=== PATIENT | male | born 1935 | race Caucasian/White ===

== ENCOUNTER → 2016-10-11 | Outpatient (CLI) | payer BC ==
[~2016-10-11] MED LIST: ACET-1487 PO; ALLO100T PO; ALPR-411 PO; CILO50TA PO; CLIN150C PO; DIPH-437 PO; DONE10TA12 PO; FLUT0.0529 NAE; FRS/80 PO; GLIP-197 PO; ISOS60TA PO; LBT/100 PO; LEVO150T PO; LISI-725 PO; LPD600 PO; MULT-188 PO; NITR0.4S UT; OMEP20CA9 PO; POTA10CA28 PO; QUIN1CAP5 PO
[2016-10-11 13:51] LABS: INR 1.8 (0.9-1.1); PROTHROMBIN TIME (PATIENT) 20.2 SECONDS (9.0-12.0)
[2016-10-11 13:58] LABS: ESTIMATED AVERAGE GLUCOSE 120 mg/dl; HA1C FLAG Normal (Normal)
[2016-10-11 14:06] LABS: ALT/SGPT 19 U/L (12-78); AST/SGOT 18 U/L (15-37); BLOOD UREA NITROGEN 24 mg/dl (7-18); CALCIUM 8.9 mg/dl (8.5-10.1); CARBON DIOXIDE 25 mmol/L (21-32); CHLORIDE 109 mmol/L (98-107); CHOLESTEROL 105 mg/dl (0-200); GLUCOSE 89 mg/dl (70-99); POTASSIUM 3.8 mmol/L (3.5-5.1); SODIUM 145 mmol/L (136-145); TRIGLYCERIDES 63 mg/dl (0-150); VERY LOW DENSITY LIPOPROT CALC 13 mg/dl
[2016-10-11 14:14] LABS: ALB/GLOB RATIO 1.2 (0.9-2); ALKALINE PHOSPHATASE 94 U/L (45-117); CHOLESTEROL/HDL RATIO 2.8; HDL CHOLESTEROL 38 mg/dl
[2016-10-11 14:46] LABS: RATIO 351.8 mcg/mg (0-30.0)
== END | disposition home or self-care (01) ==
LOC: C.LABSPEC 12:44
PROVIDERS: ATTEND Internal Medicine
DX: Z51.81 Encounter for therapeutic drug level monitoring (principal); Z79.01 Long term (current) use of anticoagulants; E11.65 Type 2 diabetes mellitus with hyperglycemia; I48.91 Unspecified atrial fibrillation; I25.10 Atherosclerotic heart disease of native coronary artery without angina pectoris; I10 Essential (primary) hypertension; E03.9 Hypothyroidism, unspecified

== ENCOUNTER → 2016-11-11 | Outpatient (CLI) | payer BC ==
[2016-11-11 15:16] LABS: INR 3.4 (0.9-1.1); PROTHROMBIN TIME (PATIENT) 37.8 SECONDS (9.0-12.0)
== END | disposition home or self-care (01) ==
LOC: C.LABSPEC 13:00
PROVIDERS: ATTEND Internal Medicine
DX: I48.91 Unspecified atrial fibrillation (principal); Z79.01 Long term (current) use of anticoagulants

== ENCOUNTER → 2016-11-22 | Outpatient (CLI) | payer BC ==
[2016-11-22 15:32] LABS: INR 1.7 (0.9-1.1); PROTHROMBIN TIME (PATIENT) 18.1 SECONDS (9.0-12.0)
== END | disposition home or self-care (01) ==
LOC: C.LABSPEC 14:52
PROVIDERS: ATTEND Internal Medicine
DX: I48.91 Unspecified atrial fibrillation (principal); Z79.01 Long term (current) use of anticoagulants

== ENCOUNTER → 2016-12-05 | Outpatient (CLI) | payer BC ==
[2016-12-05 18:32] LABS: INR 1.8 (0.9-1.1); PROTHROMBIN TIME (PATIENT) 20.2 SECONDS (9.0-12.0)
== END | disposition home or self-care (01) ==
LOC: C.LABSPEC 17:58
PROVIDERS: ATTEND Internal Medicine
DX: I48.91 Unspecified atrial fibrillation (principal); Z79.01 Long term (current) use of anticoagulants

== ENCOUNTER → 2016-12-13 | Outpatient (CLI) | payer BC ==
[2016-12-13 16:13] LABS: INR 2.2 (0.9-1.1); PROTHROMBIN TIME (PATIENT) 24.9 SECONDS (9.0-12.0)
== END | disposition home or self-care (01) ==
LOC: C.LABSPEC 15:09
PROVIDERS: ATTEND Internal Medicine
DX: I48.91 Unspecified atrial fibrillation (principal); Z79.01 Long term (current) use of anticoagulants

== ENCOUNTER → 2017-02-11 | Outpatient (CLI) | payer BC ==
[2017-02-11 13:58] LABS: INR 1.8 (0.9-1.1); PROTHROMBIN TIME (PATIENT) 19.3 SECONDS (9.0-12.0)
[2017-02-11 14:16] LABS: ESTIMATED AVERAGE GLUCOSE 126 mg/dl; HA1C FLAG Normal (Normal)
[2017-02-11 14:26] LABS: CALCIUM 8.4 mg/dl (8.5-10.1)
[2017-02-11 14:27] LABS: BLOOD UREA NITROGEN 18 mg/dl (7-18); BUN/CREATININE RATIO 13.6 (10-20); CARBON DIOXIDE 25 mmol/L (21-32); CHLORIDE 111 mmol/L (98-107); CHOLESTEROL 97 mg/dl (0-200); GLUCOSE 89 mg/dl (70-99); POTASSIUM 3.5 mmol/L (3.5-5.1); SODIUM 145 mmol/L (136-145); TRIGLYCERIDES 57 mg/dl (0-150); VERY LOW DENSITY LIPOPROT CALC 11 mg/dl
[2017-02-11 14:32] LABS: RATIO 72.5 mcg/mg (0-30.0)
[2017-02-11 14:38] LABS: CHOLESTEROL/HDL RATIO 2.8; HDL CHOLESTEROL 35 mg/dl
== END | disposition home or self-care (01) ==
LOC: C.LABSPEC 12:33
PROVIDERS: ATTEND Internal Medicine
DX: I25.10 Atherosclerotic heart disease of native coronary artery without angina pectoris (principal); E78.5 Hyperlipidemia, unspecified; I10 Essential (primary) hypertension; E11.9 Type 2 diabetes mellitus without complications; I48.91 Unspecified atrial fibrillation; Z79.01 Long term (current) use of anticoagulants; E03.9 Hypothyroidism, unspecified

== ENCOUNTER → 2017-03-13 | Outpatient (CLI) | payer BC ==
[2017-03-13 15:16] LABS: INR 2.4 (0.9-1.1); PROTHROMBIN TIME (PATIENT) 26.3 SECONDS (9.0-12.0)
== END | disposition home or self-care (01) ==
LOC: C.LABSPEC 14:47
PROVIDERS: ATTEND Internal Medicine
DX: I48.91 Unspecified atrial fibrillation (principal); Z79.01 Long term (current) use of anticoagulants

== ENCOUNTER → 2017-04-11 | Outpatient (CLI) | payer BC ==
[2017-04-11 15:32] LABS: PROTHROMBIN TIME (PATIENT) 21.6 SECONDS (9.0-12.0)
== END | disposition home or self-care (01) ==
LOC: C.LABSPEC 14:41
PROVIDERS: ATTEND Internal Medicine
DX: I48.91 Unspecified atrial fibrillation (principal); Z79.01 Long term (current) use of anticoagulants

== ENCOUNTER → 2017-05-12 | Outpatient (CLI) | payer BC ==
[2017-05-12 15:28] LABS: INR 2.2 (0.9-1.1); PROTHROMBIN TIME (PATIENT) 24.1 SECONDS (9.0-12.0)
== END | disposition home or self-care (01) ==
LOC: C.LABSPEC 14:58
PROVIDERS: ATTEND Internal Medicine
DX: Z51.81 Encounter for therapeutic drug level monitoring (principal); Z79.01 Long term (current) use of anticoagulants; I48.91 Unspecified atrial fibrillation

== ENCOUNTER → 2017-06-13 | Outpatient (CLI) | payer BC ==
[2017-06-13 13:29] LABS: INR 2.1 (0.9-1.1); PROTHROMBIN TIME (PATIENT) 23.7 SECONDS (9.0-12.0)
[2017-06-13 13:48] LABS: ESTIMATED AVERAGE GLUCOSE 120 mg/dl; HA1C FLAG Normal (Normal)
[2017-06-13 14:11] LABS: ALT/SGPT 16 U/L (12-78); BLOOD UREA NITROGEN 21 mg/dl (7-18); BUN/CREATININE RATIO 16.1 (10-20); CALCIUM 8.7 mg/dl (8.5-10.1); CARBON DIOXIDE 23 mmol/L (21-32); CHLORIDE 109 mmol/L (98-107); CHOLESTEROL 91 mg/dl (0-200); GLUCOSE 86 mg/dl (70-99); POTASSIUM 3.7 mmol/L (3.5-5.1); SODIUM 142 mmol/L (136-145)
[2017-06-13 14:20] LABS: ALB/GLOB RATIO 1.1 (0.9-2); ALKALINE PHOSPHATASE 95 U/L (45-117); AST/SGOT 18 U/L (15-37); CHOLESTEROL/HDL RATIO 2.6; HDL CHOLESTEROL 35 mg/dl; THYROID STIMULATING HORMONE 0.722 uIu/ml (0.300-4.500); TRIGLYCERIDES 62 mg/dl (0-150); VERY LOW DENSITY LIPOPROT CALC 12 mg/dl
[2017-06-13 14:28] LABS: RATIO 155.4 mcg/mg (0-30.0)
== END | disposition home or self-care (01) ==
LOC: C.LABSPEC 12:39
PROVIDERS: ATTEND Internal Medicine
DX: Z51.81 Encounter for therapeutic drug level monitoring (principal); Z79.01 Long term (current) use of anticoagulants; E03.9 Hypothyroidism, unspecified; E78.5 Hyperlipidemia, unspecified; E11.9 Type 2 diabetes mellitus without complications; I48.91 Unspecified atrial fibrillation; I25.10 Atherosclerotic heart disease of native coronary artery without angina pectoris

== ENCOUNTER → 2017-07-30 | Outpatient (CLI) | payer BC ==
[2017-07-30 13:25] LABS: PROTHROMBIN TIME (PATIENT) 43.8 SECONDS (9.0-12.0)
[2017-07-30 13:29] LABS: INR 3.9 (0.9-1.1)
== END | disposition home or self-care (01) ==
LOC: C.LABSPEC 12:46
PROVIDERS: ATTEND Internal Medicine
DX: I48.91 Unspecified atrial fibrillation (principal); Z79.01 Long term (current) use of anticoagulants; M10.9 Gout, unspecified

== ENCOUNTER → 2017-08-11 | Outpatient (CLI) | payer BC ==
[2017-08-11 13:17] LABS: INR 1.9 (0.9-1.1); PROTHROMBIN TIME (PATIENT) 20.7 SECONDS (9.0-12.0)
== END | disposition home or self-care (01) ==
LOC: C.LABSPEC 12:27
PROVIDERS: ATTEND Internal Medicine
DX: Z79.01 Long term (current) use of anticoagulants (principal); I48.91 Unspecified atrial fibrillation

== ENCOUNTER → 2017-08-22 | Outpatient (CLI) | payer BC ==
[2017-08-22 12:40] LABS: INR 1.4 (0.9-1.1); PROTHROMBIN TIME (PATIENT) 14.7 SECONDS (9.0-12.0)
== END | disposition home or self-care (01) ==
LOC: C.LABSPEC 12:13
PROVIDERS: ATTEND Internal Medicine
DX: I48.91 Unspecified atrial fibrillation (principal); Z79.01 Long term (current) use of anticoagulants

== ENCOUNTER → 2017-09-05 | Outpatient (CLI) | payer BC ==
[2017-09-05 12:48] LABS: INR 1.4 (0.9-1.1)
== END | disposition home or self-care (01) ==
LOC: C.LABSPEC 12:22
PROVIDERS: ATTEND Internal Medicine
DX: Z51.81 Encounter for therapeutic drug level monitoring (principal); Z79.01 Long term (current) use of anticoagulants; I48.91 Unspecified atrial fibrillation

== ENCOUNTER → 2017-09-19 | Outpatient (CLI) | payer BC ==
[2017-09-19 13:40] LABS: INR 4.5 (0.9-1.1)
== END | disposition home or self-care (01) ==
LOC: C.LABSPEC 12:43
PROVIDERS: ATTEND Internal Medicine
DX: Z51.81 Encounter for therapeutic drug level monitoring (principal); Z79.01 Long term (current) use of anticoagulants; I48.91 Unspecified atrial fibrillation

== ENCOUNTER → 2017-10-03 | Outpatient (CLI) | payer BC ==
[2017-10-03 13:31] LABS: INR 2.9 (0.9-1.1)
== END | disposition home or self-care (01) ==
LOC: C.LABSPEC 12:32
PROVIDERS: ATTEND Internal Medicine
DX: I48.91 Unspecified atrial fibrillation (principal); Z79.01 Long term (current) use of anticoagulants

== ENCOUNTER → 2017-10-17 | Outpatient (CLI) | payer BC ==
[2017-10-17 14:15] LABS: ALBUMIN 3.9 gm/dl (3.4-5.0); ALT/SGPT 20 U/L (12-78); BLOOD UREA NITROGEN 28 mg/dl (7-18); CALCIUM 8.7 mg/dl (8.5-10.1); CARBON DIOXIDE 25 mmol/L (21-32); CHOLESTEROL 105 mg/dl (0-200); CREATININE 1.27 mg/dl (0.60-1.40); GLUCOSE 76 mg/dl (70-99); POTASSIUM 3.5 mmol/L (3.5-5.1); SODIUM 141 mmol/L (136-145)
[2017-10-17 14:24] LABS: ALKALINE PHOSPHATASE 111 U/L (45-117); AST/SGOT 21 U/L (15-37); LDL CHOLESTEROL (DIRECT) 64 mg/dl; TOTAL PROTEIN 7.8 gm/dl (6.4-8.2)
[2017-10-17 14:36] LABS: CREATININE RANDOM URINE 92.5 mg/dl
[2017-10-17 14:44] LABS: HEMOGLOBIN A1C 5.8 % (4.5-5.6)
== END | disposition home or self-care (01) ==
LOC: C.LABSPEC 13:26
PROVIDERS: ATTEND Internal Medicine
DX: E78.5 Hyperlipidemia, unspecified (principal); E11.9 Type 2 diabetes mellitus without complications; I25.10 Atherosclerotic heart disease of native coronary artery without angina pectoris; E03.9 Hypothyroidism, unspecified

== ENCOUNTER → 2017-11-10 | Outpatient (CLI) | payer BC ==
[2017-11-10 15:05] LABS: INR 3.3 (0.9-1.1)
== END | disposition home or self-care (01) ==
LOC: C.LABSPEC 14:22
PROVIDERS: ATTEND Internal Medicine
DX: Z51.81 Encounter for therapeutic drug level monitoring (principal); Z79.01 Long term (current) use of anticoagulants; I48.91 Unspecified atrial fibrillation

== ENCOUNTER → 2017-11-25 | Outpatient (CLI) | payer BC ==
[2017-11-25 16:01] LABS: INR 2.6 (0.9-1.1)
== END | disposition home or self-care (01) ==
LOC: C.LABSPEC 15:08
PROVIDERS: ATTEND Internal Medicine
DX: I48.91 Unspecified atrial fibrillation (principal); Z79.01 Long term (current) use of anticoagulants

== ENCOUNTER → 2017-12-29 | Outpatient (CLI) | payer BC ==
[2017-12-29 13:14] LABS: INR 2.3 (0.9-1.1)
== END | disposition home or self-care (01) ==
LOC: C.LABSPEC 12:37
PROVIDERS: ATTEND Internal Medicine
DX: I48.91 Unspecified atrial fibrillation (principal); Z79.01 Long term (current) use of anticoagulants

== ENCOUNTER → 2018-01-27 | Outpatient (CLI) | payer BC ==
[2018-01-27 18:09] LABS: INR 3.2 (0.9-1.1)
== END | disposition home or self-care (01) ==
LOC: C.LABSPEC 16:58
PROVIDERS: ATTEND Internal Medicine
DX: Z51.81 Encounter for therapeutic drug level monitoring (principal); I48.91 Unspecified atrial fibrillation; Z79.01 Long term (current) use of anticoagulants

== ENCOUNTER → 2018-04-20 | Outpatient (CLI) | payer BC ==
[2018-04-20 14:57] LABS: INR 2.8 (0.9-1.1)
== END | disposition home or self-care (01) ==
LOC: C.LABSPEC 13:48
PROVIDERS: ATTEND Internal Medicine
DX: Z51.81 Encounter for therapeutic drug level monitoring (principal); I48.91 Unspecified atrial fibrillation; Z79.01 Long term (current) use of anticoagulants

== ENCOUNTER 2023-08-19 14:55 | Inpatient (IN) ==
--- NOTE | 2023-08-19 15:04 | Emergency Department Note ---
Impression & Plan Heart palpitations, SOB (shortness of breath), Hypomagnesemia ED Provider Note NAME: ROBEL HUERTA AGE: 87 SEX: M : 1935 ARRIVES VIA: Ambulance INFORMANT: Patient, EMS ED PROVIDER(S): Rojas Suh DO CHIEF COMPLAINT: Shortness of breath HPI: The patient is an 87-year-old male who is 1 week status post pacemaker battery replacement who presented to the emergency department for shortness of breath and difficulty breathing. The patient noticed he is having trouble getting a deep breath. He denies having any cough or fever. He has a history of atrial fibrillation and does take blood thinners. The patient states his symptoms are improved at this time. He had an episode en route to the hospital. According to the prehospital personnel the patient had an episode of bradycardia in the 30s. The patient denies having any lower extremity swelling at this time. He denies having any current chest pain. ROS: See above HPI for pertinent positives & negatives. A total of 10 systems reviewed and were otherwise negative. PAST MEDICAL HISTORY: See Below PAST SURGICAL HISTORY: See Below FAMILY HISTORY: See Below SOCIAL HISTORY: See Below HOME MEDICATIONS: See Below ALLERGIES: See Below VITALS: See Below PHYSICAL EXAMINATION: GENERAL: Patient is awake alert in no acute distress patient is resting comfortably and showing no signs of anxiety EYES: The conjunctivae are clear. The pupils are round and reactive. EARS, NOSE, MOUTH AND THROAT: The nose is without any evidence of any deformity. NECK: The neck is nontender and supple. RESPIRATORY: Normal respiratory effort is noted there is no evidence of wheezing rhonchi or rales CARDIOVASCULAR: Regular rate and rhythm noted there no murmurs rubs or gallops normal S1 normal S2. GASTROINTESTINAL: The abdomen is soft. Abdomen is nontender. MUSCULOSKELETAL/EXTREMITIES: There is no evidence of gross deformity full range of motion is noted in the hips and shoulders. SKIN: There is no obvious evidence of any rash. Trace pedal edema was noted bilaterally. Skin is warm and dry NEUROLOGIC: Patient is awake alert and oriented x3 MEDICAL DECISION MAKING: The patient is an 87-year-old male who presented to the emergency department for an evaluation of difficulty breathing. The patient states that he did not feel well this morning. He recently had his pacemaker battery change. According to the prehospital personnel the patient was bradycardic in the 30s prior to arrival. This did resolve and the patient was feeling much better. The patient was reevaluated multiple times. He was found to have a very low magnesium. Magnesium was replaced in the emergency department. I discussed the patient's laboratory and radiographic studies with him. Given his findings I do feel the patient would be a better candidate for inpatient management. For this reason I discussed his condition with the on-call [facility] hospitalist. They have agreed to evaluate the patient in the emergency department for further management and disposition. Triage Nursing notes reviewed. Prior medical records reviewed Vital Signs: reviewed and remarkable for elevated blood pressure. Differential diagnosis: Reactive airway disease, pneumonia, pneumothorax, COPD, CHF, infections, cardiac ischemia, pulmonary embolism, musculoskeletal, gastrointestinal, as well as other pathologies. ER treatment provided: See below Diagnostics interpreted by me: ECG: EKG was obtained in the emergency department. My interpretation is ventricular paced rhythm at 70 bpm. PVCs were noted. Otherwise there were no k[place] de[place] wint[place] beats. This was compared to a EKG from March 11, 2023. No changes were noted Cardiac Monitoring: An order was placed for continuous cardiac monitoring. The monitor shows a rate of 64 bpm with ventricular paced rhythm. Laboratory studies: As stated above and show below. Imaging studies: See below. Radiographic imaging was reviewed by myself Consultation(s): Dr. Sheehan was notified about the patient. Past Med/Surg History Medical History HTN (hypertension) Gout Cognitive decline Diabetes mellitus Hypothyroidism HLD (hyperlipidemia) senior care current use of anticoagulant therapy Atrial fibrillation, permanent Pre-syncope (01/31/14) Chest pain CHF (congestive heart failure) Bradyarrhythmia (01/31/14) Angina pectoris (01/24/14) Surgical History Hx of CABG Family History Mother Breast cancer Myocardial infarction Denies family history of Ovarian cancer Prostate cancer Colorectal cancer Social History Smoking Status: Former smoker Tobacco Type: Cigarettes Second Hand Exposure: No; Do You Dip or Chew Tobacco: No; Hx Alcohol Use: No Hx Substance Use: No Preferred Language: Libyan Visual Impairment: No Limitations Hearing Ability: Use of Hearing Aid 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: No Beliefs That Will Affect Care: None marital status: Current Living Situation: Spouse current occupational status: retired Feels Safe at Home: Yes Childhood Exposure to Second-Hand Smoke: No Dental Care, Regularly: Yes Seatbelt Use: always Sunscreen Use: No Assistive Devices: None Allergies Allergies Allergy/AdvReac Type Severity Reaction Status Date / Time codeine Allergy Unknown CAN'T Verified 08/19/23 16:12 REMEMBER morphine Allergy Unknown CAN'T Verified 08/19/23 16:12 REMEMBER Penicillins Allergy Unknown CAN'T Verified 08/19/23 16:12 REMEMBER Home Meds Home Medications Medication Instructions Recorded Confirmed clindamycin HCl 150 mg capsule 600 mg PO DIRECTED PRN PRIOR TO 05/27/19 08/19/23 DENTAL APPOINTMENTS nitroglycerin 0.4 mg sublingual 0.4 mg sublingual Q5M PRN chest 05/27/19 08/19/23 tablet pain [place]'s Cramp Pill 1 dose PO HS PRN leg cramps 07/01/21 08/19/23 vit C 50 mg-E 15 unit-zinc cit 4.5 1 tab PO DAILY 07/01/21 08/19/23 mg-lutein 2.5 mg-zeaxan chew tablet (iSpecimen) vitamins-lipotropics tablet 1 tab PO DAILY PRN PER PT LIST 10/02/22 08/19/23 NEEDED loperamide 2 mg capsule 2 mg PO DAILY 01/15/23 08/19/23 acetaminophen 650 mg 650 mg PO HS PRN Pain 02/06/23 08/19/23 tablet,extended release levothyroxine 150 mcg tablet 150 mcg PO DAILYBB 08/19/23 08/19/23 Previous Rx's Medication Instructions Recorded labetalol 100 mg tablet 100 mg PO BID #180 tabs 09/10/22 tamsulosin 0.4 mg capsule 0.4 mg PO DAILY #90 caps 09/27/22 Wheeled Walker #1 ea 10/10/22 atorvastatin 20 mg tablet 20 mg PO DAILY #90 tabs 10/30/22 gemfibrozil 600 mg tablet 600 mg PO BID #180 tabs 11/11/22 omeprazole 20 mg capsule,delayed 20 mg PO DAILY #90 caps 11/11/22 release calcium carbonate 500 mg calcium 500 mg PO BID #60 tabs 02/05/23 (1,250 mg) tablet cholecalciferol (vitamin D3) 50 50 mcg PO DAILY #90 caps 02/28/23 mcg (2,000 unit) capsule apixaban 2.5 mg tablet (Eliquis) 2.5 mg PO BID #180 tabs 03/11/23 potassium chloride 10 mEq 20 meq (2 x 10 mEq) PO BID #360 03/21/23 tablet,extended release tabs furosemide 80 mg tablet 80 mg PO DAILY 90 days #90 tabs 07/02/23 isosorbide mononitrate 60 mg 60 mg PO DAILY #90 tabs 07/02/23 tablet,extended release 24 hr allopurinol 100 mg tablet 200 mg (2 x 100 mg) PO DAILY #180 07/03/23 tabs cilostazol 50 mg tablet 50 mg PO BID #180 tabs 07/03/23 lisinopril 20 mg tablet 20 mg PO DAILY #90 tabs 08/01/23 baclofen 10 mg tablet 10 mg PO HS #90 tabs 08/11/23 Results & Data (ED) Vital Signs Vital Signs - 24 hr 08/19/23 14:59 08/19/23 15:00 08/19/23 15:00 Temperature 36.5 C Temperature Source Oral Pulse Rate 72 72 Pulse Rate [Right Finger] Pulse Rate from SpO2 Sensor Pulse Rhythm Irregular Regular Pulse Rhythm [Right Finger] Pulse Strength Normal Pulse Strength [Right Finger] Respiratory Rate 18 20 Respiratory Effort / Characteristics Non-Labored Spontaneous Respiratory Depth Normal Respiratory Pattern Regular Blood Pressure Blood Pressure [Right Arm] Blood Pressure Mean Blood Pressure Mean [Right Arm] Blood Pressure Position [Right Arm] Pulse Oximetry 97 97 97 Oxygen Delivery Method Room Air Room Air Room Air Oxygen Flow Rate 0 Sepsis Recent Fever Within 48 Hours No Sepsis New/Unexplained Change in Mental Status N/A Sepsis Action Taken by Nursing No Action Required 08/19/23 15:04 08/19/23 15:04 08/19/23 15:10 Temperature Temperature Source Pulse Rate 72 72 72 Pulse Rate [Right Finger] Pulse Rate from SpO2 Sensor 71 69 Pulse Rhythm Pulse Rhythm [Right Finger] Pulse Strength Pulse Strength [Right Finger] Respiratory Rate 25 H 21 Respiratory Effort / Characteristics Respiratory Depth Respiratory Pattern Blood Pressure Blood Pressure [Right Arm] Blood Pressure Mean Blood Pressure Mean [Right Arm] Blood Pressure Position [Right Arm] Pulse Oximetry 95 97 Oxygen Delivery Method Oxygen Flow Rate Sepsis Recent Fever Within 48 Hours Sepsis New/Unexplained Change in Mental Status Sepsis Action Taken by Nursing 08/19/23 15:20 08/19/23 15:30 08/19/23 15:30 Temperature Temperature Source Pulse Rate 64 Pulse Rate [Right Finger] Pulse Rate from SpO2 Sensor 62 Pulse Rhythm Pulse Rhythm [Right Finger] Pulse Strength Pulse Strength [Right Finger] Respiratory Rate 25 H Respiratory Effort / Characteristics Non-Labored Spontaneous Respiratory Depth Respiratory Pattern Regular Blood Pressure Blood Pressure [Right Arm] Blood Pressure Mean Blood Pressure Mean [Right Arm] Blood Pressure Position [Right Arm] Pulse Oximetry 97 96 Oxygen Delivery Method Room Air Oxygen Flow Rate Sepsis Recent Fever Within 48 Hours Sepsis New/Unexplained Change in Mental Status Sepsis Action Taken by Nursing 08/19/23 15:30 08/19/23 15:40 08/19/23 15:50 Temperature Temperature Source Pulse Rate 64 66 61 Pulse Rate [Right Finger] Pulse Rate from SpO2 Sensor 54 L 66 62 Pulse Rhythm Pulse Rhythm [Right Finger] Pulse Strength Pulse Strength [Right Finger] Respiratory Rate 14 24 17 Respiratory Effort / Characteristics Respiratory Depth Respiratory Pattern Blood Pressure 137/75 Blood Pressure [Right Arm] Blood Pressure Mean 95 Blood Pressure Mean [Right Arm] Blood Pressure Position [Right Arm] Pulse Oximetry 96 96 96 Oxygen Delivery Method Room Air Room Air Room Air Oxygen Flow Rate Sepsis Recent Fever Within 48 Hours Sepsis New/Unexplained Change in Mental Status Sepsis Action Taken by Nursing 08/19/23 16:00 Temperature Temperature Source Pulse Rate Pulse Rate [Right Finger] 64 Pulse Rate from SpO2 Sensor Pulse Rhythm Pulse Rhythm [Right Finger] Regular Pulse Strength Pulse Strength [Right Finger] Normal Respiratory Rate 19 Respiratory Effort / Characteristics Non-Labored Spontaneous Respiratory Depth Normal Respiratory Pattern Regular Blood Pressure Blood Pressure [Right Arm] 159/79 H Blood Pressure Mean Blood Pressure Mean [Right Arm] 105 Blood Pressure Position [Right Arm] Lying Pulse Oximetry 97 Oxygen Delivery Method Room Air Oxygen Flow Rate Sepsis Recent Fever Within 48 Hours Sepsis New/Unexplained Change in Mental Status Sepsis Action Taken by Care Home Medications Current Medication List: was personally reviewed by me Laboratory Data Attestation: I reviewed the patient's lab results. 08/19/23 15:23 08/19/23 15:23 Lab Results 08/19/23 Range/Units 15:23 WBC 6.83 (4.8-10.8) K/ul RBC 3.23 L (4.70-6.10) M/uL Hgb 9.9 L (14.0-18.0) g/dl Hct 29.8 L (42.0-52.0) % MCV 92.3 (80.0-100.0) fL MCH 30.7 (25.0-34.0) pg MCHC 33.2 (32.0-36.0) g/dL RDW Std Deviation 50.4 H (36.4-46.3) fL RDW Coeff of Gerri 15.1 H (11.5-14.5) % Plt Count 185 (130-400) K/uL MPV 11.8 (9.4-12.4) fL Immature Gran % (Auto) 0.3 % Neut % (Auto) 73.2 % Lymph % (Auto) 14.6 % [place] % (Auto) 8.3 % Eos % (Auto) 2.6 % Baso % (Auto) 1.0 % Neut # (Auto) 4.99 (1.40-6.50) K/uL Lymph # (Auto) 1.00 L (1.20-3.40) K/uL [place] # (Auto) 0.57 (0.11-0.59) K/uL Eos # (Auto) 0.18 (0.00-0.50) K/uL Baso # (Auto) 0.07 (0.00-0.20) K/uL Immature Gran # (Auto) 0.02 (0.01-0.20) K/uL PT 14.8 H (9.0-12.0) Seconds INR 1.4 H (0.9-1.1) APTT 34 H (21-31) Seconds PTT Ratio 1.2 Sodium 134 L (136-145) mmol/L Potassium 4.0 (3.5-5.1) mmol/L Chloride 97 L (98-107) mmol/L Carbon Dioxide 28 (21-32) mmol/L Anion Gap 9 (3-11) BUN 22 (6-23) mg/dl Creatinine 1.23 (0.6-1.4) mg/dl Est Cr Clr Drug Dosing 51.1 ml/min Est GFR ( Amer) 61.2 ml/min Est GFR (Non-Af Amer) 52.8 ml/min BUN/Creatinine Ratio 17.9 (10-20) Glucose 145 H (70-99(Fasting)) mg/dl Calcium 7.5 L (8.6-10.3) mg/dl Magnesium 0.7 L* (1.7-2.4) mg/dl Total Bilirubin 0.5 (0.2-1.0) mg/dl AST 18 (13-39) U/L ALT 6 L (7-52) U/L Alkaline Phosphatase 83 (34-104) U/L Troponin I High Sens 19.3 (0-20) pg/ml B-Natriuretic Peptide 874 H (0-100) pg/ml Total Protein 6.9 (6.0-8.3) gm/dl Albumin 4.1 (3.4-5.0) gm/dl Globulin 2.8 (2.5-4.0) gm/dl Albumin/Globulin Ratio 1.5 (0.9-2) Administered Medications Magnesium Sulfate/Dextrose (Magnesium Sulfate / D5w) 1 gm in 100 mls @ 100 mls/hr IV Q1H ADRYAN Stop: 08/19/23 18:33 Last Admin: 08/19/23 17:08 Dose: 100 mls/hr Documented By: RIPENING ROOM HAND Imaging Data Attestation: I personally reviewed and interpreted this imaging study as follows: My Impression: 1 view chest x-ray was obtained in the emergency department. My interpretation is no free air or definite infiltrate, final report below Radiologist's Impression: Chest X-Ray 08/19/23 14:59 XR chest 1V portable CLINICAL HISTORY: Dyspnea TECHNIQUE: Single frontal radiograph of the chest was obtained. Comparison: Comparison is made to chest radiograph 01/17/2023 FINDINGS: Median sternotomy wires are unchanged. Pacemaker is seen. Cardiomegaly is noted. Prominence and cephalization of the vasculature is seen. No evidence of pleural effusion or pneumothorax. IMPRESSION: Cardiomegaly and mild pulmonary edema. ACT 112: Negative or not required by law. Electronically signed by: Dereck Oosrio M.D. 08/19/2023 4:01 PM Discharge Plan Visit Data Chief Complaint: Bradycardia Stated Complaint: SOB ED Provider: Rojas Suh Discharge Problem: Heart palpitations, SOB (shortness of breath), Hypomagnesemia Patient Disposition: Being Evaluated by Hospitalist Forms Stand Alone Forms: My [facility] Prescriptions Prescriptions: No Action labetalol 100 mg tablet 100 mg PO BID Qty: 180 3RF tamsulosin 0.4 mg capsule 0.4 mg PO DAILY Qty: 90 3RF (DME) Lobo Loomis Misc See Rx Instructions .Route Qty: 1 0RF Rx Instructions: As directed atorvastatin 20 mg tablet 20 mg PO DAILY Qty: 90 3RF omeprazole 20 mg capsule,delayed release(DR/EC) 20 mg PO DAILY Qty: 90 3RF gemfibrozil 600 mg tablet 600 mg PO BID Qty: 180 3RF calcium carbonate 500 mg calcium (1,250 mg) tablet 500 mg PO BID Qty: 60 0RF cholecalciferol (vitamin D3) 50 mcg (2,000 unit) capsule 50 mcg PO DAILY Qty: 90 3RF potassium chloride 10 mEq tablet extended release 20 meq PO BID Qty: 360 3RF furosemide 80 mg tablet 80 mg PO DAILY 90 Days Qty: 90 3RF isosorbide mononitrate 60 mg tablet extended release 24 hr 60 mg PO DAILY Qty: 90 1RF allopurinol 100 mg tablet 200 mg PO DAILY Qty: 180 3RF cilostazol 50 mg tablet 50 mg PO BID Qty: 180 3RF lisinopril 20 mg tablet 20 mg PO DAILY Qty: 90 2RF baclofen 10 mg tablet 10 mg PO HS Qty: 90 3RF nitroglycerin 0.4 mg tablet, sublingual 0.4 mg SL Q5M PRN (Reason: chest pain) clindamycin HCl 150 mg capsule 600 mg PO DIRECTED PRN (Reason: PRIOR TO DENTAL APPOINTMENTS) Ocuvite Eye Health 50 mg-15 unit- 4.5 mg-2.5 mg Tablet,Chewable 1 tab PO DAILY [place]'s Cramp Pill 1 dose PO HS PRN (Reason: leg cramps) acetaminophen 650 mg tablet extended release 650 mg PO HS PRN (Reason: Pain) loperamide 2 mg Capsule 2 mg PO DAILY Eliquis 2.5 mg tablet 2.5 mg PO BID Qty: 180 3RF levothyroxine 150 mcg tablet 150 mcg PO DAILYBB vitamins-lipotropics Tablet 1 tab PO DAILY PRN (Reason: PER PT LIST NEEDED) Referrals Referrals: Marcelino French, [Primary Care Provider] -
[2023-08-19 15:29] VITALS: TEMP 97.7
--- NOTE | 2023-08-19 16:03 | XRay Report ---
XR chest 1V portable CLINICAL HISTORY: Dyspnea TECHNIQUE: Single frontal radiograph of the chest was obtained. Comparison: Comparison is made to chest radiograph 01/17/2023 FINDINGS: Median sternotomy wires are unchanged. Pacemaker is seen. Cardiomegaly is noted. Prominence and cepha lization of the vasculature is seen. No evidence of pleural effusion or pneumothorax. IMPRESSION: Cardiomegaly and mild pulmonary edema. ACT 112: Negative or not required by law. Electronically signed by: Dereck Osorio M.D. 08/19/2023 4:01 PM
[2023-08-19 16:05] LABS: BUN Creatinine Ratio 17.9 (10-20); Calcium 7.5 mg/dl (8.6-10.3); Creatinine Clr Calc Pharmacy 51.1 ml/min; Est GFR (African American) 61.2 ml/min; Est GFR (Non-African American) 52.8 ml/min
[2023-08-19 16:07] LABS: Albumin Globulin Ratio 1.5 (0.9-2); Albumin Level 4.1 gm/dl (3.4-5.0); Bilirubin,Total 0.5 mg/dl (0.2-1.0); Globulin 2.8 gm/dl (2.5-4.0); Magnesium 0.7 mg/dl (1.7-2.4); Total Protein 6.9 gm/dl (6.0-8.3)
--- NOTE | 2023-08-19 16:10 | Electrocardiogram Report ---
Test Reason : Blood Pressure : / mmHG Vent. Rate : 070 BPM Atrial Rate : 250 BPM P-R Int : 000 ms QRS Dur : 180 ms QT Int : 480 ms P-R-T Axes : 000 -63 112 degrees QTc Int : 518 ms Ventricular-paced rhythm with occasional sinus complexes and with occasional Premature ventricular co mplexes Abnormal ECG When compared with ECG of 11-MAR-2023 14:26, Premature ventricular complexes are now Present Vent. rate has increased BY 7 BPM Confirmed by Rojas Walls ([id number]) on 08/19/2023 4:10:21 PM Referred By: Confirmed By:Rojas Walls
[2023-08-19 16:11] LABS: Troponin I High Sensitivity 19.3 pg/ml (0-20)
[2023-08-19 16:16] LABS: Basophils # (auto) 0.07 K/uL (0.00-0.20); Eosinophils # (auto) 0.18 K/uL (0.00-0.50); Eosinophils % (auto) 2.6 %; Hematocrit (blood only) 29.8 % (42.0-52.0); Hemoglobin 9.9 g/dl (14.0-18.0); Immature Granulocytes # (auto) 0.02 K/uL (0.01-0.20); Immature Granulocytes % (auto) 0.3 %; Lymphocytes % (auto) 14.6 %; Mean Corpuscular Hemoglobin 30.7 pg (25.0-34.0); Mean Corpuscular Hgb Conc 33.2 g/dL (32.0-36.0); Mean Corpuscular Volume 92.3 fL (80.0-100.0); Mean Platelet Volume 11.8 fL (9.4-12.4); Monocytes # (auto) 0.57 K/uL (0.11-0.59); Monocytes % (auto) 8.3 %; Neutrophils # (auto) 4.99 K/uL (1.40-6.50); Neutrophils % (auto) 73.2 %; Platelet Count 185 K/uL (130-400); RDW Coefficient of Variation 15.1 % (11.5-14.5); RDW Standard Deviation 50.4 fL (36.4-46.3); Red Blood Count 3.23 M/uL (4.70-6.10); White Blood Count 6.83 K/ul (4.8-10.8)
[2023-08-19 16:19] LABS: INR 1.4 (0.9-1.1); Partial Thromboplastin Ratio 1.2; Partial Thromboplastin Time 34 Seconds (21-31); Prothrombin Time 14.8 Seconds (9.0-12.0)
[2023-08-19] MEDS: MAGNESIUM SULFATE / D5W 1 GM/100 ML BAG IV SCH ×4 (17:08→22:21)
[2023-08-19 17:32] LABS: Adenovirus PCR Not Detected (NotDetected); Bordetella parapertussis PCR Not Detected (NotDetected); Bordetella pertussis PCR Not Detected (NotDetected); Chlamydia pneumoniae PCR Not Detected (NotDetected); Coronavirus 229E PCR Not Detected (NotDetected); Coronavirus CoV-2 (COVID19)PCR Not Detected (NotDetected); Coronavirus HKU1 PCR Not Detected (NotDetected); Coronavirus NL63 PCR Not Detected (NotDetected); Coronavirus OC43PCR Not Detected (NotDetected); Human Metapneumovirus PCR Not Detected (NotDetected); Influenza A PCR Not Detected (NotDetected); Influenza B PCR Not Detected (NotDetected); Mycoplasma pneumoniae PCR Not Detected (NotDetected); Parainfluenza Virus 1 PCR Not Detected (NotDetected); Parainfluenza Virus 2 PCR Not Detected (NotDetected); Parainfluenza Virus 3 PCR Not Detected (NotDetected); Parainfluenza Virus 4 PCR Not Detected (NotDetected); Respiratory Syncytial VirusPCR Not Detected (NotDetected); Rhinovirus/Enterovirus PCR Not Detected (NotDetected)
--- NOTE | 2023-08-19 18:00 | History & Physical Report ---
Date of Service August 19, 2023 Assessment & Plan (1) Bradycardia: Plan: Suspect cause of his symptoms today despite pacemaker ?ventricular tachycardia - patient is currently asymptomatic Pending pacemaker reports to assess bradyarrhythmia Holding labetalol until pacemaker check and cardiology review Consult cardiology for ongoing advice (2) Hypomagnesemia: Plan: Suspect cause is his chronic Lasix use. Likely acute on chronic problem since he is not on supplementation and level 1.2 in September. Hyperreflexic but no nystagmus on exam Suspect contributing towards arrhythmia Mg level 0.7 on admission. Mg sulfate 2g IV ordered by ER physician, will give addition 2g over 2 hours, then 2g over 4 hours. Repeat Mg level daily, Phosphorus level in AM (3) Atrial fibrillation, permanent: Plan: Hold Eliquis in case of need of procedure Rate controlled (4) Coronary artery disease: Plan: Continue ISMN Restart Eliquis when ok by cardiology Hold labetalol as above Continue atorvastatin (5) Presence of cardiac pacemaker: Plan: Recent battery replacement. Last check longevity for 15 years. (6) CHF (congestive heart failure): Plan: Continue Lasix 80mg PO daily. No overt acute exacerbation. (7) BPH (benign prostatic hyperplasia): Plan: Continue tamsulosin Plan VTE Prophylaxis - on hold pending possible need for procedure Diet - heart healthy, NPO after midnight Disposition - admit to PCU Admission and Anticipated Discharge Date Admission Date: August 19, 2023 History of Present Illness Chief Complaint: "feeling like I was going to " Primary Care Provider: Marcelino French, DO Flores Spenser is an 87 year old male who presents to the ER after sudden onset abnormal feeling like he was going to . This feeling started at 3am and lasted until 7am. He did not inform his . He finds it difficult to describe but denies chest pain. More like shortness of breath. Feeling of impending doom. It completely went away until 2pm and at that time told his who called EMS. Per EMS he had a heart rate in the 30s when seen. Currently the patient feels back to his normal self. He denies any chest pain, shortness of breath, leg swelling, palpitations, weakness, abdominal pain, diarrhea, nausea, vomiting, sinus pain, nasal congestion. Allergies Allergy/AdvReac Type Severity Reaction Status Date / Time codeine Allergy Unknown CAN'T Verified 08/19/23 16:12 REMEMBER morphine Allergy Unknown CAN'T Verified 08/19/23 16:12 REMEMBER Penicillins Allergy Unknown CAN'T Verified 08/19/23 16:12 REMEMBER Home Medications Medication Instructions Recorded Confirmed Type clindamycin HCl 150 mg capsule 600 mg PO DIRECTED PRN PRIOR TO 05/27/19 08/19/23 History DENTAL APPOINTMENTS nitroglycerin 0.4 mg sublingual 0.4 mg sublingual Q5M PRN chest 05/27/19 08/19/23 History tablet pain Media's Cramp Pill 1 dose PO HS PRN leg cramps 07/01/21 08/19/23 History vit C 50 mg-E 15 unit-zinc cit 4.5 1 tab PO DAILY 07/01/21 08/19/23 History mg-lutein 2.5 mg-zeaxan chew tablet ([facility]) labetalol 100 mg tablet 100 mg PO BID #180 tabs 09/10/22 08/19/23 Rx tamsulosin 0.4 mg capsule 0.4 mg PO DAILY #90 caps 09/27/22 08/19/23 Rx vitamins-lipotropics tablet 1 tab PO DAILY PRN PER PT LIST 10/02/22 08/19/23 History NEEDED Wheeled Walker #1 ea 10/10/22 08/19/23 Rx atorvastatin 20 mg tablet 20 mg PO DAILY #90 tabs 10/30/22 08/19/23 Rx gemfibrozil 600 mg tablet 600 mg PO BID #180 tabs 11/11/22 08/19/23 Rx omeprazole 20 mg capsule,delayed 20 mg PO DAILY #90 caps 11/11/22 08/19/23 Rx release loperamide 2 mg capsule 2 mg PO DAILY 01/15/23 08/19/23 History calcium carbonate 500 mg calcium 500 mg PO BID #60 tabs 02/05/23 08/19/23 Rx (1,250 mg) tablet acetaminophen 650 mg 650 mg PO HS PRN Pain 02/06/23 08/19/23 History tablet,extended release cholecalciferol (vitamin D3) 50 50 mcg PO DAILY #90 caps 02/28/23 08/19/23 Rx mcg (2,000 unit) capsule apixaban 2.5 mg tablet (Eliquis) 2.5 mg PO BID #180 tabs 03/11/23 08/19/23 Rx potassium chloride 10 mEq 20 meq (2 x 10 mEq) PO BID #360 03/21/23 08/19/23 Rx tablet,extended release tabs furosemide 80 mg tablet 80 mg PO DAILY 90 days #90 tabs 07/02/23 08/19/23 Rx isosorbide mononitrate 60 mg 60 mg PO DAILY #90 tabs 07/02/23 08/19/23 Rx tablet,extended release 24 hr allopurinol 100 mg tablet 200 mg (2 x 100 mg) PO DAILY #180 07/03/23 08/19/23 Rx tabs cilostazol 50 mg tablet 50 mg PO BID #180 tabs 07/03/23 08/19/23 Rx lisinopril 20 mg tablet 20 mg PO DAILY #90 tabs 08/01/23 08/19/23 Rx baclofen 10 mg tablet 10 mg PO HS #90 tabs 08/11/23 08/19/23 Rx levothyroxine 150 mcg tablet 150 mcg PO DAILYBB 08/19/23 08/19/23 History Past Med/Surg History Medical History HTN (hypertension) Gout Cognitive decline Diabetes mellitus Hypothyroidism HLD (hyperlipidemia) jail current use of anticoagulant therapy Atrial fibrillation, permanent Pre-syncope (01/31/14) Chest pain CHF (congestive heart failure) Bradyarrhythmia (01/31/14) Angina pectoris (01/24/14) Surgical History Hx of CABG Family History Mother Breast cancer Myocardial infarction Denies family history of Ovarian cancer Prostate cancer Colorectal cancer Social History Smoking Status: Former smoker Tobacco Type: Cigarettes Second Hand Exposure: No; Do You Dip or Chew Tobacco: No; Hx Alcohol Use: Yes Alcohol type: beer Hx Substance Use: No Preferred Language: Arabic Communication Ability: Effective Visual Impairment: No Limitations Hearing Ability: Use of Hearing Aid Monitor Tech Required: No Beliefs That Will Affect Care: None marital status: Current Living Situation: Spouse current occupational status: retired Feels Safe at Home: Yes Safety Concerns: Feels Safe At This Time Childhood Exposure to Second-Hand Smoke: No Dental Care, Regularly: Yes Seatbelt Use: always Sunscreen Use: No Assistive Devices: None Review of Systems Review of Systems: All systems reviewed & are unremarkable except as noted in HPI & below Physical Exam Constitutional: WD/WN, vitals as above Eyes: PERRL, conjunctivae normal, anicteric sclerae Respiratory: normal respiratory effort, lungs clear to auscultation Cardiovascular: Rate/Rhythm: regular rate and regular rhythm Heart Sounds: no murmur Extremities: normal capillary refill and + pedal edema (1+ b/l equal pitting); no calf tenderness Gastrointestinal (Abdomen): normal bowel sounds, soft, nontender, no hepatosplenomegaly Musculoskeletal: no cyanosis or clubbing, extremities motor strength 5/5 Neurologic: moves all extremities and awake; + abnormal deep tendon reflexes (hyperreflexia b/l equal) and not confused Speech / Cognition: normal speech Motor/Sensory: no tremor and no pronator drift Cranial Nerves: normal facial strength Coordination: normal [id number] test Psychiatric: A+Ox3, euthymic affect Results & Data Results & Data Vital Signs (Past 12 Hours) Vital Signs Temp Pulse Pulse Resp BP BP Pulse Ox 08/19/23 16:00 64 19 159/79 H 97 08/19/23 15:50 61 17 96 08/19/23 15:40 66 24 96 08/19/23 15:30 64 14 137/75 96 08/19/23 15:30 96 08/19/23 15:20 64 25 H 97 08/19/23 15:10 72 21 97 08/19/23 15:04 72 25 H 95 08/19/23 15:04 72 08/19/23 15:00 97 08/19/23 15:00 36.5 C 72 20 97 08/19/23 14:59 72 18 97 O2 Del Method O2 Flow Rate 08/19/23 16:00 Room Air 08/19/23 15:50 Room Air 08/19/23 15:40 Room Air 08/19/23 15:30 Room Air 08/19/23 15:30 Room Air 08/19/23 15:20 08/19/23 15:10 08/19/23 15:04 08/19/23 15:04 08/19/23 15:00 Room Air 0 08/19/23 15:00 Room Air 08/19/23 14:59 Room Air Laboratory Results Abnormal lab results 08/19/23 08/19/23 Range/Units 15:23 Unknown RBC 3.23 L (4.70-6.10) M/uL Hgb 9.9 L (14.0-18.0) g/dl Hct 29.8 L (42.0-52.0) % RDW Std Deviation 50.4 H (36.4-46.3) fL RDW Coeff of Gerri 15.1 H (11.5-14.5) % Lymph # (Auto) 1.00 L (1.20-3.40) K/uL PT 14.8 H (9.0-12.0) Seconds INR 1.4 H (0.9-1.1) APTT 34 H (21-31) Seconds Sodium 134 L (136-145) mmol/L Chloride 97 L (98-107) mmol/L Glucose 145 H (70-99(Fasting)) mg/dl Calcium 7.5 L (8.6-10.3) mg/dl Magnesium 0.7 L* (1.7-2.4) mg/dl ALT 6 L (7-52) U/L B-Natriuretic Peptide 874 H (0-100) pg/ml Ur Leukocyte Esterase 1+ H (Negative) Urine WBC (Auto) 10-30 H (0-5) /hpf Urine Bacteria (Auto) 2+ H (Negative) Diagnostic Findings XR chest 1V portable CLINICAL HISTORY: Dyspnea TECHNIQUE: Single frontal radiograph of the chest was obtained. Comparison: Comparison is made to chest radiograph 01/17/2023 FINDINGS: Median sternotomy wires are unchanged. Pacemaker is seen. Cardiomegaly is noted. Prominence and cephalization of the vasculature is seen. No evidence of pleural effusion or pneumothorax. IMPRESSION: Cardiomegaly and mild pulmonary edema. Medications Administered ER Medications Given: Mg sulfate 1g IV x2 over 1 hour ECG Rate (beats per minute): 70 Rhythm: other (ventricular paced) Findings: + PVC Comparison ECG Date: from (March 11, 2023) Change: the following changes noted (PVC not present) Code Status & VTE Plan Code Status Full VTE Prophylaxis Plan VTE Prophylaxis will be ordered: No PG Care Time/CCT Total # of Minutes Spent Total Time Spent with Patient: Total time spent is greater than 50% in coordination of care (as documented) at patient's floor/unit and/or counseling patient: Coding Level of Care Code 62381 INT INP/OBS CARE 3/75MIN Diagnoses Bradycardia R00.1 Hypomagnesemia E83.42 Atrial fibrillation, permanent I48.21 Coronary artery disease I25.10 Presence of cardiac pacemaker Z95.0 CHF (congestive heart failure) I50.9 BPH (benign prostatic hyperplasia) N40.0
[2023-08-19 22:02] LABS: Appearance Urine Clear (Clear); Bacteria Urine Automated 2+ (Negative); Bilirubin Urine Negative (Negative); Blood Urine Negative (Negative); Color Urine Yellow; Epithelial Cell Urine Auto 0-5 /lpf (0-5); Glucose Urine UA Negative (Negative); Ketones Urine Negative (Negative); Leukocyte Esterase Urine 1+ (Negative); Nitrite Urine Negative (Negative); Protein Urine Negative (Negative); RBC Urine Automated 0-4 /hpf (0-4); Specific Gravity Urine 1.005 (1.000-1.030); Urobilinogen Urine Negative (Negative); pH Urine 6.5 (4.5-7.5)
[2023-08-20] MEDS: MAGNESIUM SULFATE / D5W 1 GM/100 ML BAG IV SCH ×2 (03:29→05:38)
[2023-08-20 03:58] VITALS: BP 124/77; O2SAT 93
[2023-08-20 05:06] VITALS: RESP 18
[2023-08-20] MEDS ORDERED: LEVOTHYROXINE SODIUM 150 MCG TABLET PO SCH (06:30)
[2023-08-20 07:29] LABS: Basophils # (auto) 0.06 K/uL (0.00-0.20); Basophils % (auto) 0.8 %; Eosinophils # (auto) 0.18 K/uL (0.00-0.50); Eosinophils % (auto) 2.5 %; Hematocrit (blood only) 30.5 % (42.0-52.0); Immature Granulocytes # (auto) 0.03 K/uL (0.01-0.20); Immature Granulocytes % (auto) 0.4 %; Lymphocytes # (auto) 1.31 K/uL (1.20-3.40); Lymphocytes % (auto) 18.5 %; Mean Corpuscular Hemoglobin 30.3 pg (25.0-34.0); Mean Corpuscular Hgb Conc 32.8 g/dL (32.0-36.0); Mean Corpuscular Volume 92.4 fL (80.0-100.0); Mean Platelet Volume 11.6 fL (9.4-12.4); Monocytes # (auto) 0.68 K/uL (0.11-0.59); Monocytes % (auto) 9.6 %; Neutrophils # (auto) 4.82 K/uL (1.40-6.50); Neutrophils % (auto) 68.2 %; Platelet Count 180 K/uL (130-400); RDW Coefficient of Variation 15.2 % (11.5-14.5); RDW Standard Deviation 50.8 fL (36.4-46.3); White Blood Count 7.08 K/ul (4.8-10.8)
[2023-08-20 07:53] LABS: BUN Creatinine Ratio 18.3 (10-20); Calcium 8.2 mg/dl (8.6-10.3); Creatinine Clr Calc Pharmacy 60.5 ml/min; Est GFR (Non-African American) 64.7 ml/min; Magnesium 2.2 mg/dl (1.7-2.4); Phosphorus 3.4 mg/dl (2.5-4.9); Potassium 3.4 mmol/L (3.5-5.1)
[2023-08-20 08:07] LABS: Thyroid Stimulating Hormone 8.394 uIu/ml (0.300-4.500)
[2023-08-20 08:42] LABS: T4 Free Thyroxine 0.54 ng/dl (0.61-1.60)
[2023-08-20] MEDS ORDERED: lisinopril 20 MG TAB PO SCH (09:00)
[2023-08-20] MEDS ORDERED: gemfibroziL 600 MG TAB PO SCH (09:00)
[2023-08-20] MEDS ORDERED: POTASSIUM CHLORIDE CRTAB 20 MEQ TABCR PO SCH (09:00)
[2023-08-20] MEDS ORDERED: CEROVITE ADV FORMULA TAB PO SCH (09:00)
[2023-08-20] MEDS ORDERED: allopurinoL 100 MG TAB PO SCH (09:00)
[2023-08-20] MEDS ORDERED: cilostazoL 100 MG TAB PO SCH (09:00)
[2023-08-20] MEDS ORDERED: LABETALOL HCL 100 MG TAB PO SCH (09:00)
[2023-08-20] MEDS ORDERED: ISOSORBIDE MONO EXTENDED REL 60 MG TABCR PO SCH (09:00)
[2023-08-20] MEDS ORDERED: FUROSEMIDE 80 MG TAB PO SCH (09:00)
[2023-08-20] MEDS ORDERED: PANTOprazole 40 MG TAB PO SCH (09:00)
[2023-08-20] MEDS ORDERED: APIXABAN 2.5 MG TAB PO SCH (09:00)
[2023-08-20] MEDS ORDERED: ATORVASTATIN 20 MG TAB PO SCH (09:00)
[2023-08-20] MEDS ORDERED: TAMSULOSIN HCL 0.4 MG CAP PO SCH (09:00)
--- NOTE | 2023-08-20 09:42 | Cardiology Consultation ---
Date of Consultation August 20, 2023 Assessment & Plan (1) Frequent PVCs: (2) Bradycardia: (3) Presence of cardiac pacemaker: (4) SOB (shortness of breath): (5) Heart palpitations: (6) Atrial fibrillation, permanent: (7) Hypomagnesemia: Plan Mr. 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 He was complaining of SOB/difficulty breathing, stomach felt funny, and a vague sensation of palpitations that had its onset at 0200 and lasted all night. He did not mention these symptoms to his until yesterday later in the morning. She called 911. EMS evaluated the patient and noted a HR of 30 bpm. Transcutaneous pacemaker pads were placed, EKG apparently showed a paced rhythm (I do not see the EKG that they did in [facility]). Evaluation in the ER showed a very low serum Mg level of 0.7 mg/dL, elevated BNP, and CXR shows evidence of pulmonary edema. RV lead appears to be in a stable position. Magnesium was supplemented and is now normal at 2.2 mg/dL. So far he has a negative fluid balance of - 675 mL. Patient states that he is feeling much better now and wants to go home. He admits to chronic dyspnea so he just does things more slowly and he feels his breathing is back to baseline. We interrogated his Medtronic Fedora XT SR MRI Single Chamber Pacemaker shows: -- Estimated battery life > 14 years. -- Appropriate pacing and sensing characteristics. Lower pacing rate 60 bpm. -- Paces from the RV < 50% of the time. -- Frequent PVC's, averaging 50.2 PVC's/hour. -- Brief episodes of NSVT, longest lasted 10 beats/2 seconds. His pacemaker is functioning appropriately. His bradycardia was likely secondary to the pulse deficit created by PVCs most likely in a bigeminal pattern vs singlet PVCs in combination with couplets. His atrial fibrillation is rate controlled and he is chronically anticoagulated. His hypomagnesemia has been corrected. Recommend the following: -- Discontinue transcutaneous pacemaker. -- Resume Eliquis 2.5 mg b.i.d.. -- Continue Labetalol 100 mg b.i.d.. -- Continue Atorvastatin 20 mg daily. -- Continue Lasix 80 mg daily. -- Continue Potassium Chloride 20 mEq daily. -- Continue Imdur ER 60 mg daily. -- Continue Lisinopril 20 mg daily. -- Continue Cilostazol 50 mg b.i.d.. -- Begin a magnesium supplement. -- Consider increasing Levothyroxine dose as his TSH is > 8. -- Continue all other medications as listed. -- Low sodium diet. -- Monitor daily body weights. Thank you for asking us to see this patient in consultation. History of Present Illness Reason for Consultation: -- Bradycardia despite pacemaker Requesting Physician: Morgan Ford MD Attending Physician: Rojas Walls MD History of Present Illness Mr. Dueñas is an 87 year old male with a history of CAD s/p CABG, Permanent Atrial Fibrillation, Freq PVC's, Hypertension, Hyperlipidemia, Type 2 Diabetes Mellitus, Bradycardia s/p Single Chamber Pacemaker s/p Generator Change-out 03/11/2023, Cognitive Decline/Dementia, CHF, and Hypothyroidism who presented acutely to [facility] ER on 08/19/23 complaining of SOB/difficulty breathing, stomach felt funny, and a vague sensation of palpitations that had its onset at 0200 and lasted all night. He did not mention these symptoms to his until yesterday morning. She called 911. EMS evaluated the patient and noted a HR of 30 bpm. Transcutaneous pacemaker pads were placed, EKG apparently showed a paced rhythm (I do not see the EKG that they did in [facility]). Evaluation in the ER shows a very low serum Mg level of 0.7 mg/dL, elevated BNP, and CXR shows evidence of pulmonary edema. RV lead appears to be in a stable position. Magnesium was supplemented and is now normal at 2.2 mg/dL. So far he has a negative fluid balance of - 675 mL. Patient states that he is feeling much better now and wants to go home. He admits to chronic dyspnea so he just does things more slowly and he feels his breathing is back to baseline. He denies any chest pain, heaviness, tightness, pressure, or angina pectoris. He denies any neck, jaw, back, or arm pain. No SOB at rest, orthopnea, or PND. Vague sensation of palpitations is much better. He denies any syncope or near syncope. Allergies Allergy/AdvReac Type Severity Reaction Status Date / Time codeine Allergy Unknown CAN'T Verified 08/19/23 16:12 REMEMBER morphine Allergy Unknown CAN'T Verified 08/19/23 16:12 REMEMBER Penicillins Allergy Unknown CAN'T Verified 08/19/23 16:12 REMEMBER Home Medications Medication Instructions Recorded Confirmed Type clindamycin HCl 150 mg capsule 600 mg PO DIRECTED PRN PRIOR TO 05/27/19 08/19/23 History DENTAL APPOINTMENTS nitroglycerin 0.4 mg sublingual 0.4 mg sublingual Q5M PRN chest 05/27/19 08/19/23 History tablet pain Karnes's Cramp Pill 1 dose PO HS PRN leg cramps 07/01/21 08/19/23 History vit C 50 mg-E 15 unit-zinc cit 4.5 1 tab PO DAILY 07/01/21 08/19/23 History mg-lutein 2.5 mg-zeaxan chew tablet ([facility]) labetalol 100 mg tablet 100 mg PO BID #180 tabs 09/10/22 08/19/23 Rx tamsulosin 0.4 mg capsule 0.4 mg PO DAILY #90 caps 09/27/22 08/19/23 Rx vitamins-lipotropics tablet 1 tab PO DAILY PRN PER PT LIST 10/02/22 08/19/23 History NEEDED Wheeled Walker #1 ea 10/10/22 08/19/23 Rx atorvastatin 20 mg tablet 20 mg PO DAILY #90 tabs 10/30/22 08/19/23 Rx gemfibrozil 600 mg tablet 600 mg PO BID #180 tabs 11/11/22 08/19/23 Rx omeprazole 20 mg capsule,delayed 20 mg PO DAILY #90 caps 11/11/22 08/19/23 Rx release loperamide 2 mg capsule 2 mg PO DAILY 01/15/23 08/19/23 History calcium carbonate 500 mg calcium 500 mg PO BID #60 tabs 02/05/23 08/19/23 Rx (1,250 mg) tablet acetaminophen 650 mg 650 mg PO HS PRN Pain 02/06/23 08/19/23 History tablet,extended release cholecalciferol (vitamin D3) 50 50 mcg PO DAILY #90 caps 02/28/23 08/19/23 Rx mcg (2,000 unit) capsule apixaban 2.5 mg tablet (Eliquis) 2.5 mg PO BID #180 tabs 03/11/23 08/19/23 Rx potassium chloride 10 mEq 20 meq (2 x 10 mEq) PO BID #360 03/21/23 08/19/23 Rx tablet,extended release tabs furosemide 80 mg tablet 80 mg PO DAILY 90 days #90 tabs 07/02/23 08/19/23 Rx isosorbide mononitrate 60 mg 60 mg PO DAILY #90 tabs 07/02/23 08/19/23 Rx tablet,extended release 24 hr allopurinol 100 mg tablet 200 mg (2 x 100 mg) PO DAILY #180 07/03/23 08/19/23 Rx tabs cilostazol 50 mg tablet 50 mg PO BID #180 tabs 07/03/23 08/19/23 Rx lisinopril 20 mg tablet 20 mg PO DAILY #90 tabs 08/01/23 08/19/23 Rx baclofen 10 mg tablet 10 mg PO HS #90 tabs 08/11/23 08/19/23 Rx levothyroxine 150 mcg tablet 150 mcg PO DAILYBB 08/19/23 08/19/23 History Patient History Medical History (Updated 08/20/23 @ 10:28 by Grayson Will PA-C) Pacemaker battery depletion HTN (hypertension) Gout Cognitive decline Diabetes mellitus Hypothyroidism HLD (hyperlipidemia) 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 Atrial fibrillation, permanent Pre-syncope (01/31/14) Chest pain CHF (congestive heart failure) Bradyarrhythmia (01/31/14) Angina pectoris (01/24/14) Surgical History Hx of CABG Family History Mother Breast cancer Myocardial infarction Denies family history of Ovarian cancer Prostate cancer Colorectal cancer Social History (Reviewed 08/20/23 @ 10:13 by KELLY Mott Smoking Status: Former smoker Tobacco Type: Cigarettes Second Hand Exposure: No; Do You Dip or Chew Tobacco: No; Hx Alcohol Use: Yes Alcohol type: beer Hx Substance Use: No Preferred Language: Romansh Communication Ability: Effective Visual Impairment: No Limitations Hearing Ability: Use of Hearing Aid Loss Prevention Auditor Required: No Beliefs That Will Affect Care: None marital status: Current Living Situation: Spouse current occupational status: retired Feels Safe at Home: Yes Safety Concerns: Feels Safe At This Time Childhood Exposure to Second-Hand Smoke: No Dental Care, Regularly: Yes Seatbelt Use: always Sunscreen Use: No Assistive Devices: None Review of Systems Review of Systems: -- 10 point ROS is completed and is nega tive with the exception of what is mentioned in the HPI. Physical Exam Physical Exam: BP 124/77. Pulse 70 bpm and irregular. GENERAL: Patient in no acute distress. HEENT: Head is atraumatic, normocephalic. EOM's intact. Facies symmetric. No perioral cyanosis. NECK: No JVD. JVP is not elevated. Carotid upstrokes are + 2 bilaterally. CHEST/LUNGS: Mildly diminished breath sounds throughout but otherwise clear. No wheezes, rales, or crackles. CVS: S1 and S2 are irregularly irregular with rates in the 60's and 70's. murmurs, gallops, or rubs. PMI is nondisplaced. No lifts, heaves, or thrills. No abdominal aortic or renal bruits. ABDOMINAL EXAM: Bowel sounds are present. No masses, organomegaly, or tenderness. EXTREMITIES: No clubbing or cyanosis. No edema. Intact posterior tibial and radial pulses bilaterally. NEUROLOGIC EXAM: Patient is awake, alert, and interactive. Pleasant and cooperative. Difficulty answering questions due to memory loss. Speech is clear. 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 -- Intermittent ventricular pacing. Interrogation of his Medtronic Keshia XT SR MRI Single Chamber Pacemaker shows: -- Estimated battery life > 14 years. -- Appropriate pacing and sensing charac teristics. Lower pacing rate 60 bpm. -- Paces from the RV < 50% of the time. -- Frequent PVC's, averaging 50.2 PVC's/ hour. -- Brief episodes of NSVT, longest laste d 10 beats/2 seconds. Results & Data Vital Signs (Past 12 Hours) Vital Signs Pulse Pulse Resp BP BP Pulse Ox O2 Del Method 08/20/23 07:42 71 08/20/23 04:58 67 18 124/77 93 Room Air 08/20/23 03:30 67 22 124/77 93 08/20/23 03:00 69 22 124/76 93 08/20/23 02:30 65 21 124/63 92 08/20/23 02:00 74 21 130/74 93 08/20/23 01:30 68 20 152/87 H 89 L 08/20/23 01:00 63 17 111/60 95 08/20/23 00:30 64 18 142/56 H 93 08/20/23 00:00 70 19 150/96 H 92 08/19/23 23:52 66 08/19/23 23:30 63 22 145/82 H 08/19/23 23:00 65 20 131/63 94 08/19/23 22:00 64 24 151/69 H Laboratory Results Laboratory Results - last 24 hr 08/19/23 08/19/23 08/20/23 15:23 Unknown 06:53 WBC 6.83 7.08 RBC 3.23 L 3.30 L Hgb 9.9 L 10.0 L Hct 29.8 L 30.5 L MCV 92.3 92.4 MCH 30.7 30.3 MCHC 33.2 32.8 RDW Std Deviation 50.4 H 50.8 H RDW Coeff of Gerri 15.1 H 15.2 H Plt Count 185 180 MPV 11.8 11.6 Immature Gran % (Auto) 0.3 0.4 Neut % (Auto) 73.2 68.2 Lymph % (Auto) 14.6 18.5 Warren % (Auto) 8.3 9.6 Eos % (Auto) 2.6 2.5 Baso % (Auto) 1.0 0.8 Neut # (Auto) 4.99 4.82 Lymph # (Auto) 1.00 L 1.31 Warren # (Auto) 0.57 0.68 H Eos # (Auto) 0.18 0.18 Baso # (Auto) 0.07 0.06 Immature Gran # (Auto) 0.02 0.03 PT 14.8 H INR 1.4 H APTT 34 H PTT Ratio 1.2 Sodium 134 L 137 Potassium 4.0 3.4 L Chloride 97 L 100 Carbon Dioxide 28 28 Anion Gap 9 9 BUN 22 19 Creatinine 1.23 1.04 Est Cr Clr Drug Dosing 51.1 60.5 Est GFR ( Amer) 61.2 75.0 Est GFR (Non-Af Amer) 52.8 64.7 BUN/Creatinine Ratio 17.9 18.3 Glucose 145 H 109 H Calcium 7.5 L 8.2 L Phosphorus 3.4 Magnesium 0.7 L* 2.2 Total Bilirubin 0.5 AST 18 ALT 6 L Alkaline Phosphatase 83 Troponin I High Sens 19.3 24.7 H B-Natriuretic Peptide 874 H Total Protein 6.9 Albumin 4.1 Globulin 2.8 Albumin/Globulin Ratio 1.5 TSH 8.394 H Free T4 0.54 L Urine Color Yellow Urine Appearance Clear Urine pH 6.5 Ur Specific [place] 1.005 Urine Protein Negative Urine Glucose (UA) Negative Urine Ketones Negative Urine Blood Negative Urine Nitrite Negative Urine Bilirubin Negative Urine Urobilinogen Negative Ur Leukocyte Esterase 1+ H Urine WBC (Auto) 10-30 H Urine RBC (Auto) 0-4 U Hyaline Cast (Auto) 1-5 U Epithel Cells (Auto) 0-5 Urine Bacteria (Auto) 2+ H Adenovirus (PCR) Not Detected B. pertussis DNA (PCR) Not Detected B.parapertussis DNA PCR Not Detected C. pneumoniae DNA (PCR) Not Detected Coronavirus OC43 (PCR) Not Detected Coronavirus HKU1 (PCR) Not Detected Coronavirus 229E (PCR) Not Detected SARS-CoV-2 (PCR) Not Detected Coronavirus NL63 (PCR) Not Detected Human Metapneumovir PCR Not Detected Influenza Type A (PCR) Not Detected Influenza Type B (PCR) Not Detected M. pneumoniae (PCR) Not Detected Parainfluenza 1 (PCR) Not Detected Parainfluenza 2 (PCR) Not Detected Parainfluenza 3 (PCR) Not Detected Parainfluenza 4 (PCR) Not Detected RSV (PCR) Not Detected Entero/Rhino (PCR) Not Detected Diagnostic Findings CXR 08/19/23: Median sternotomy wires are unchanged. Pacemaker is seen. Cardiomegaly is noted. Prominence and cephalization of the vasculature is seen. No evidence of pleural effusion or pneumothorax. IMPRESSION: Cardiomegaly and mild pulmonary edema. Medications Administered Medication List Allopurinol (Allopurinol 100 Mg Tab) 200 mg PO DAILY ADRYAN Stop: 09/19/23 08:59 Last Admin: 08/20/23 08:39 Dose: 200 mg Documented By: MARY Atorvastatin Calcium (Atorvastatin 20 Mg Tab) 20 mg PO DAILY ADRYAN Stop: 09/19/23 08:59 Last Admin: 08/20/23 08:40 Dose: 20 mg Documented By: MARY Cilostazol (Cilostazol 100 Mg Tab) 50 mg PO BID ADRYAN Stop: 09/19/23 08:59 Last Admin: 08/20/23 08:40 Dose: 50 mg Documented By: MARY Furosemide (Furosemide 80 Mg Tab) 80 mg PO DAILY ADRYAN Stop: 09/19/23 08:59 Last Admin: 08/20/23 08:41 Dose: 80 mg Documented By: MARY Gemfibrozil (Gemfibrozil 600 Mg Tab) 600 mg PO BID ADRYAN Stop: 09/19/23 08:59 Last Admin: 08/20/23 08:41 Dose: 600 mg Documented By: MARY Isosorbide Mononitrate (Isosorbide Warren Extended Rel 60 Mg Tabcr) 60 mg PO DAILY ADRYAN Stop: 09/19/23 08:59 Last Admin: 08/20/23 08:42 Dose: 60 mg Documented By: MARY Levothyroxine Sodium (Levothyroxine Sodium 150 Mcg Tablet) 150 mcg PO DAILYBB ADRYAN Stop: 09/19/23 06:29 Last Admin: 08/20/23 08:39 Dose: 150 mcg Documented By: MARY Lisinopril (Lisinopril 20 Mg Tab) 20 mg PO DAILY ADRYAN Stop: 09/19/23 08:59 Last Admin: 08/20/23 08:42 Dose: 20 mg Documented By: MARY Multivitamins/Minerals (Cerovite Adv Formula Tab) 1 tab PO DAILY ADRYAN Stop: 09/19/23 08:59 Last Admin: 08/20/23 08:43 Dose: 1 tab Documented By: MARY Pantoprazole Sodium (Pantoprazole 40 Mg Tab) 40 mg PO DAILY ADRYAN Stop: 09/19/23 08:59 Last Admin: 08/20/23 08:43 Dose: 40 mg Documented By: MARY Potassium Chloride (Potassium Chloride Crtab 20 Meq Tabcr) 20 meq PO BID ADRYAN Stop: 09/19/23 08:59 Last Admin: 08/20/23 08:43 Dose: 20 meq Documented By: MARY Tamsulosin HCl (Tamsulosin Hcl 0.4 Mg Cap) 0.4 mg PO DAILY ADRYAN Stop: 09/19/23 08:59 Last Admin: 08/20/23 08:44 Dose: 0.4 mg Documented By: MARY Discontinued Medications Magnesium Sulfate/Dextrose (Magnesium Sulfate / D5w) 1 gm in 100 mls @ 100 mls/hr IV Q1H ADRYAN Stop: 08/19/23 18:33 Last Infusion: 08/19/23 19:54 Dose: Infused Documented By: YARD ASSISTANT Admin: 08/19/23 18:30 Dose: 100 mls/hr Documented By: YARD ASSISTANT Infusion: 08/19/23 18:30 Dose: Infused Documented By: YARD ASSISTANT Admin: 08/19/23 17:08 Dose: 100 mls/hr Documented By: JUSTINE Magnesium Sulfate/Dextrose (Magnesium Sulfate / D5w) 1 gm in 100 mls @ 100 mls/hr IV Q1H ADRYAN Stop: 08/19/23 19:47 Last Infusion: 08/19/23 23:30 Dose: Infused Documented By: YARD ASSISTANT Admin: 08/19/23 22:21 Dose: 100 mls/hr Documented By: YARD ASSISTANT Infusion: 08/19/23 21:26 Dose: Infused Documented By: YARD ASSISTANT Admin: 08/19/23 19:55 Dose: 100 mls/hr Documented By: YARD ASSISTANT Magnesium Sulfate/Dextrose (Magnesium Sulfate / D5w) 1 gm in 100 mls @ 50 mls/hr IV Q2H [facility] Stop: 08/20/23 06:29 Last Infusion: 08/20/23 07:58 Dose: Infused Documented By: Admin: 08/20/23 05:38 Dose: 50 mls/hr Documented By: Infusion: 08/20/23 05:37 Dose: Infused Documented By: Admin: 08/20/23 03:29 Dose: 50 mls/hr Documented By: JACQUELYN PG Care Time/CCT Total # of Minutes Spent Total Time Spent with Patient: Total time spent is greater than 50% in coordination of care (as documented) at patient's floor/unit and/or counseling patient:46 C[place] [address] INT INP/OBS CARE 2/55MIN Patient Type Established History Comprehensive Exam Comprehensive Medical Decision Making Moderate Complexity Diagnoses Frequent PVCs I49.3 Bradycardia R00.1 Presence of cardiac pacemaker Z95.0 SOB (shortness of breath) R06.02 Heart palpitations R00.2 Atrial fibrillation, permanent I48.21 Hypomagnesemia E83.42 Time Spent (min) 58
[2023-08-20] MEDS ORDERED: MAGNESIUM OXIDE 400 MG TAB PO SCH (11:30)
[2023-08-20] MEDS ORDERED: POTASSIUM CHLORIDE 10 MEQ TABCR PO STA (15:04)
--- NOTE | 2023-08-20 15:08 | Discharge Summary ---
Date of Service August 20, 2023 Admission HPI Per Admitting Provider Mark Dueñas is an 87 year old male who presents to the ER after sudden onset abnormal feeling like he was going to . This feeling started at 3am and lasted until 7am. He did not inform his . He finds it difficult to describe but denies chest pain. More like shortness of breath. Feeling of impending doom. It completely went away until 2pm and at that time told his who called EMS. Per EMS he had a heart rate in the 30s when seen. Currently the patient feels back to his normal self. He denies any chest pain, shortness of breath, leg swelling, palpitations, weakness, abdominal pain, diarrhea, nausea, vomiting, sinus pain, nasal congestion. Discharge Data Allergies Allergy/AdvReac Type Severity Reaction Status Date / Time codeine Allergy Unknown CAN'T Verified 08/19/23 16:12 REMEMBER morphine Allergy Unknown CAN'T Verified 08/19/23 16:12 REMEMBER Penicillins Allergy Unknown CAN'T Verified 08/19/23 16:12 REMEMBER Consultations 08/19/23 17:31 ED Decision to Admit Stat 08/19/23 19:24 Consult Cardiology Routine Hospital Course (1) Bradycardia: Suspect cause of his symptoms today despite pacemaker ?ventricular tachycardia - patient is currently asymptomatic Pending pacemaker reports to assess bradyarrhythmia Holding labetalol until pacemaker check and cardiology review Consult cardiology for ongoing advice (2) Hypomagnesemia: Suspect cause is his chronic Lasix use. Likely acute on chronic problem since he is not on supplementation and level 1.2 in September. Hyperreflexic but no nystagmus on exam Suspect contributing towards arrhythmia Mg level 0.7 on admission. Mg sulfate 2g IV ordered by ER physician, will give addition 2g over 2 hours, then 2g over 4 hours. Repeat Mg level daily, Phosphorus level in AM (3) Atrial fibrillation, permanent: Hold Eliquis in case of need of procedure Rate controlled (4) Coronary artery disease: Continue ISMN Restart Eliquis when ok by cardiology Hold labetalol as above Continue atorvastatin (5) Presence of cardiac pacemaker: Recent battery replacement. Last check longevity for 15 years. (6) CHF (congestive heart failure): Continue Lasix 80mg PO daily. No overt acute exacerbation. (7) BPH (benign prostatic hyperplasia): Continue tamsulosin Plan VTE Prophylaxis - on hold pending possible need for procedure Diet - heart healthy, NPO after midnight Disposition - admit to PCU Discharge Plan Discharge Items Patient Disposition: Home - Self-Care Reason For Visit: HYPOMAGNESEMIA, SYMPTOMATIC BRADYCARDIA Discharge Diagnosis: 1. severely low magnesium - resolved; likely due to chronic use of furosemide diuretic; possibly due to chronic use of omeprazole 2. bradycardia (slow heart rate) - possibly induced by the low magnesium 3. fatigue and weakness - likely due to low magnesium levels - improved 4. hypothyroidism Activity: Resume your previous activity Non-emergency contact: Primary Care Provider Call non-emergency contact if: you have any medication questions and your symptoms worsen Follow-up/Referrals: Ham Cleveland MD [Physician] - 08/22/23 (keep appointment as scheduled ) Rhonda Delgado CRNP [Nurse Practitioner] - 08/26/23 8:30 am Marcelino French DO [Primary Care Provider] - Diet: Heart Healthy Fluids: 1500ml (6 cups) Ambulatory Orders: Magnesium (Routine) Timeframe: [id number] Location: Determined by Patient Ordered By: Morgan Thomas Attending Provider Instructions: Mr Dueñas, You were hospitalized due to feeling poorly and the discovery of low heart rate (bradycardia). Your magnesium was VERY LOW (level was 0.7) upon arrival to [facility]. We suspect the low magnesium was contributing to your symptoms as well as some of the slow heart rates as well as "extra beats" seen on monitoring. We gave your IV magnesium and your level is now normal. Normal magnesium level is 1.7 and higher. Again we suspect your magnesium level was low due to chronic use of furosemide water pill/diuretic. It is also possible that your omeprazole for heartburn could be contributing to the low magnesium. If your magnesium level does not stay normal as an outpatient we may have to change the omeprazole. We also discovered your thyroid levels were a bit off -- that is, you need a dose increase in your thyroid medication. Recommendations - 1. please take a magnesium supplement as follows -- magnesium oxide 400mg twice daily every day. 2. you will need a repeat magnesium level in the next week. 3. I have increased your thyroid medication from 150mcg once daily to 175mcg once daily (there is a 175mcg pill available). New prescription sent to pharmacy for you. Have Dr French repeat your thyroid level (TSH) in about 6 weeks. Follow-up - see separate section Return to [facility] if - * you have difficulty breathing * you have chest pains * you have extreme weakness * you have dizziness or lightheadedness * any other concerns It was our pleasure to care for you! Pending Studies at Discharge: No Stand-Alone Forms: My [facility], Smoking Cessation Medications and DC Order Prescriptions: New magnesium oxide 400 mg (241.3 mg magnesium) Tablet 400 mg PO BID Qty: 60 2RF Continued labetalol 100 mg tablet 100 mg PO BID Qty: 180 3RF tamsulosin 0.4 mg capsule 0.4 mg PO DAILY Qty: 90 3RF (DME) Wheeled Walker Misc See Rx Instructions .Route Qty: 1 0RF Rx Instructions: As directed atorvastatin 20 mg tablet 20 mg PO DAILY Qty: 90 3RF omeprazole 20 mg capsule,delayed release(DR/EC) 20 mg PO DAILY Qty: 90 3RF gemfibrozil 600 mg tablet 600 mg PO BID Qty: 180 3RF calcium carbonate 500 mg calcium (1,250 mg) tablet 500 mg PO BID Qty: 60 0RF cholecalciferol (vitamin D3) 50 mcg (2,000 unit) capsule 50 mcg PO DAILY Qty: 90 3RF potassium chloride 10 mEq tablet extended release 20 meq PO BID Qty: 360 3RF furosemide 80 mg tablet 80 mg PO DAILY 90 Days Qty: 90 3RF isosorbide mononitrate 60 mg tablet extended release 24 hr 60 mg PO DAILY Qty: 90 1RF allopurinol 100 mg tablet 200 mg PO DAILY Qty: 180 3RF cilostazol 50 mg tablet 50 mg PO BID Qty: 180 3RF lisinopril 20 mg tablet 20 mg PO DAILY Qty: 90 2RF baclofen 10 mg tablet 10 mg PO HS Qty: 90 3RF nitroglycerin 0.4 mg tablet, sublingual 0.4 mg SL Q5M PRN (Reason: chest pain) clindamycin HCl 150 mg capsule 600 mg PO DIRECTED PRN (Reason: PRIOR TO DENTAL APPOINTMENTS) [facility] 50 mg-15 unit- 4.5 mg-2.5 mg Tablet,Chewable 1 tab PO DAILY [place]'s Cramp Pill 1 dose PO HS PRN (Reason: leg cramps) acetaminophen 650 mg tablet extended release 650 mg PO HS PRN (Reason: Pain) loperamide 2 mg Capsule 2 mg PO DAILY Eliquis 2.5 mg tablet 2.5 mg PO BID Qty: 180 3RF vitamins-lipotropics Tablet 1 tab PO DAILY PRN (Reason: PER PT LIST NEEDED) Changed levothyroxine 175 mcg capsule 175 mcg PO .qam Qty: 30 2RF Rx Instructions: note larger dose; ideally take well before breakfast on empty stomach Discharge Orders: Discharge Order (Routine); Ordered 08/20/23 Ordered By: Morgan Ford Admission Data Admit Date/Time: 08/19/23 17:59 Attending Provider: Morgan Ford Admit Provider: Morgan Sheehan Primary Care Provider: Marcelino French Other Providers: Morgan Sheehan; Fan Paris Coding Diagnoses Bradycardia R00.1 Hypomagnesemia E83.42 Atrial fibrillation, permanent I48.21 Coronary artery disease I25.10 Presence of cardiac pacemaker Z95.0 CHF (congestive heart failure) I50.9 BPH (benign prostatic hyperplasia) N40.0
[2023-08-20 17:33] VITALS: PULSE 67
[2023-08-20] MEDS ORDERED: BACLOFEN 10 MG TAB PO SCH (21:00)
== END 2023-08-20 16:00 | disposition home or self-care (01) | DRG 310 ==
LOC: ED 14:55 → EDINP 17:59 → SUATTDRO 17:59 → EDINP 21:05
DX: Z95.0 Presence of cardiac pacemaker; Z88.0 Allergy status to penicillin; Z87.891 Personal history of nicotine dependence; I11.0 Hypertensive heart disease with heart failure; I50.9 Heart failure, unspecified; R00.1 Bradycardia, unspecified; I25.10 Atherosclerotic heart disease of native coronary artery without angina pectoris; E83.42 Hypomagnesemia; Z79.01 Long term (current) use of anticoagulants; Z95.1 Presence of aortocoronary bypass graft; Z88.5 Allergy status to narcotic agent; E03.9 Hypothyroidism, unspecified; I48.21 Permanent atrial fibrillation; E11.9 Type 2 diabetes mellitus without complications; N40.0 Benign prostatic hyperplasia without lower urinary tract symptoms; M10.9 Gout, unspecified; Z98.890 Other specified postprocedural states

== ENCOUNTER 2023-08-26 12:51 | Observation (INO) ==
[2023-08-26 13:33] LABS: Basophils # (auto) 0.08 K/uL (0.00-0.20); Basophils % (auto) 1.2 %; Hematocrit (blood only) 30.8 % (42.0-52.0); Hemoglobin 10.1 g/dl (14.0-18.0); Immature Granulocytes # (auto) 0.02 K/uL (0.01-0.20); Immature Granulocytes % (auto) 0.3 %; Lymphocytes # (auto) 1.23 K/uL (1.20-3.40); Lymphocytes % (auto) 18.6 %; Mean Corpuscular Hemoglobin 30.4 pg (25.0-34.0); Mean Corpuscular Hgb Conc 32.8 g/dL (32.0-36.0); Mean Corpuscular Volume 92.8 fL (80.0-100.0); Mean Platelet Volume 11.2 fL (9.4-12.4); Monocytes # (auto) 0.64 K/uL (0.11-0.59); Monocytes % (auto) 9.7 %; Neutrophils # (auto) 4.46 K/uL (1.40-6.50); Neutrophils % (auto) 67.2 %; Platelet Count 201 K/uL (130-400); RDW Coefficient of Variation 15.6 % (11.5-14.5); RDW Standard Deviation 52.5 fL (36.4-46.3); Red Blood Count 3.32 M/uL (4.70-6.10); White Blood Count 6.63 K/ul (4.8-10.8)
[2023-08-26 13:47] LABS: Base Excess VBG 5.3 mEq/L; HCO3 VBG 32 mmol/L; Oxygen Saturation VBG < 60.0 %; PCO2 VBG 54 mmHg (38-50); PO2 VBG 34 mmHg; pH VBG 7.38 (7.36-7.41)
[2023-08-26 13:47] LABS: Albumin Globulin Ratio 1.4 (0.9-2); Bilirubin,Total 0.4 mg/dl (0.2-1.0); Creatinine Clr Calc Pharmacy 51.9 ml/min; Est GFR (African American) 64.4 ml/min; Est GFR (Non-African American) 55.5 ml/min; Globulin 2.9 gm/dl (2.5-4.0); Potassium 4.8 mmol/L (3.5-5.1); Total Protein 6.9 gm/dl (6.0-8.3)
[2023-08-26 13:54] LABS: Troponin I High Sensitivity 20.7 pg/ml (0-20)
--- NOTE | 2023-08-26 13:56 | XRay Report ---
XR chest 1V portable CLINICAL HISTORY: Shortness of breath. COMPARISON STUDY: Chest radiograph August 19, 2023. FINDINGS: Left subclavian pacer, median sternotomy wires and mediastinal surgical clips are noted. Mo derate cardiomegaly is unchanged. No pneumothorax or pleural effusion is present. No consolidation ne edle is identified to suggest pneumonia. There is pulmonary vascular congestion with possible mild pu lmonary edema. IMPRESSION: Stable cardiomegaly. Pulmonary vascular congestion with possible mild pulmonary edema. ACT 112: Negative or not required by law. Electronically signed by: Joe Novoa M.D. 08/26/2023 1:55 PM
[2023-08-26 14:05] LABS: INR 1.2 (0.9-1.1); Partial Thromboplastin Ratio 1.1; Partial Thromboplastin Time 31 Seconds (21-31)
[2023-08-26] MEDS ORDERED: FUROSEMIDE 40 MG/4 ML VIAL IV ONE ×2 (14:50→21:00)
--- NOTE | 2023-08-26 15:16 | History & Physical Report ---
Date of Service August 26, 2023 Assessment & Plan (1) CHF exacerbation: Plan: -Admit to med/tele on pulse oximetry -Currently stable on RA and asymptomatic while sitting up -Patient reports the same symptoms (SOB, JULIO, Orthopnea) which brought him to the ED and was admitted to [facility] from 08/19-08/20 -Patient does report that symptoms are not as severe today compared to last admission -Concern last admission appeared to be due to possible bradycardia, review of h is CXR on last admission shows similar pulmonary vascular congestion and signs of pulmonary edema -BNP today is 1185, increased compared to 08/19 -At this time it appears that the patient's symptoms are due to CHF exacerbation as his ECG shows ventricular paced rhythm without acute ST segment or T-wave changes -Patient's confirms he has been taking his 80 mg PO lasix daily, including this am -Will obtain UA to monitor for signs of renal involvement but low suspicion at this time as he is without significant edema -S/P 40 mg IV lasix in the ED -Will give another 40 mg IV lasix tonight then continue with 80 mg IV BID tomorrow -Will obtain TTE as I do not see a recent one in our system -Continue home Imdur -Patient's family should be counseled to monitor sodium levels in food and liquids -Continue home Eliquis for DVT PPX -HH/DMII/2gm Sodium restriction diet with 1500 mL fluid restriction -AM CBC, BMP, Mag -Will obtain am Chest x-ray for re-evaluation (2) SOB (shortness of breath): Plan: -Likely due to his CHF exacerbation with increased pulmonary vascular congestion and mild pulmonary edema -No signs of focal consolidating or viral pneumonia, Covid 19/RSV/Influenza negative -Currently stable on RA and without signs of respiratory failure -Continue incentive spirometry and flutter therapy (3) Elevated troponin: Plan: -Initial high sen trop elevated at 20 --> 21 on 2 hour repeat -Patient is without chest discomfort or acute ST segment or T-wave changes on ECG today -Likely due to demand from CHF -Continue to monitor on tele -Will monitor a 6 hour high sen trop tonight to ensure it does not continue to rise -Monitor TTE tomorrow (4) Hypomagnesemia: Plan: -Noted on last admission -1.7 today -Was started on oral replacement therapy on last discharge -Likely due to poor oral intake and diuretic use -Will give 1gm IV mag-sulfate on admission, continue BID oral Mag-oxide -Monitor am mag level and monitor on tele (5) Urinary retention: Plan: -With chronic villalba cath in place without complications -Will having nursing staff exchange villalba bag for large bag with IV diuresis during admission -Will FU with UA on admission (6) Atrial fibrillation, permanent: Plan: -Currently in ventricular paced rhythm -Continue eliquis (7) Hypothyroidism: Plan: -Continue levothyroxine (8) HTN (hypertension): Plan: -Stable -Continue labetalol -Holding home lisinopril with heavy IV diuresis for now (9) Diabetes mellitus: Plan: -Last A1c on 08/21/23 was 6.6 -Appears to have been trying to control with diet -Monitor BSG ACHS for now, goal is 110-140 -Hold basal Lantus for now to avoid hypoglycemia -Start CF of 50 ACHS for now -Adjust regimen as needed Plan The patient was discussed with Dr. 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 Per the EMS staff, the patient received a DuoNeb treatment in route with improvement in symptoms. He remained stable in the ED. Labs were significant for VBG pH of 7.38, pCO2 of 54, and pO2 of 34, sodium of 133, BNP of 1185 (up from 874 as of 08/19/23), initial high sen trop of 20.7, and Covid19/LEXII/Influenza negative. Chest xray was read as Stable cardiomegaly. Pulmonary vascular congestion with possible mild pulmonary edema.. Prior to admission the patient was given 40 mg IV lasix. At the time of the exam the patient was sitting in bed in no acute distress. He states that he has been experiencing increased SOB/JULIO/Orthopnea. He states he was having similar symptoms prior to his last admission. He denies any recent fever, chills, chest pain/pressure, nausea, vomiting, dysuria, hematuria, diarrhea, melena, and recent trauma. He has had a non-productive cough over this time. I spoke with his , Latanya Dueñas [phone], as she organizes his medications. She states that he has not missed a dose of his 80 mg PO lasix since being discharged on 08/20. When discussing diet, she states that he does not put extra salt on his food. When discussing liquids, she states that he does not drink much water but drinks orange juice and "a lot of milk". When asked, she states that she does not check the sodium content of these liquids. She confirms he has a living will and is a DNR/DNI. She is his POA/medical decision maker due to his dementia. Per chart review, the patient was recently admitted to [facility] from 08/19-08/20 for bradycardia and hypomagnesemia. He was evaluated by Cardiology and his pacemaker was interrogated. Per their consult note, "his bradycardia was likely secondary to the pulse deficit created by PVCs most likely in a bigeminal pattern vs singlet PVCs in combination with couplets.". He was recommended to continue all cardiac medications as prescribed. His magnesium level was stabilized prior to discharged and he was discharged with a BID prescription for mag-oxide. Please refer to Dr. Tate's attestation for any changes to the treatment plan Allergies Allergy/AdvReac Type Severity Reaction Status Date / Time codeine Allergy Unknown CAN'T Verified 08/26/23 15:08 REMEMBER morphine Allergy Unknown CAN'T Verified 08/26/23 15:08 REMEMBER Penicillins Allergy Unknown CAN'T Verified 08/26/23 15:08 REMEMBER Home Medications Medication Instructions Recorded Confirmed Type clindamycin HCl 150 mg capsule 600 mg PO DIRECTED PRN PRIOR TO 05/27/19 08/26/23 History DENTAL APPOINTMENTS nitroglycerin 0.4 mg sublingual 0.4 mg sublingual Q5M PRN chest 05/27/19 08/26/23 History tablet pain vit C 50 mg-E 15 unit-zinc cit 4.5 1 tab PO DAILY 07/01/21 08/26/23 History mg-lutein 2.5 mg-zeaxan chew tablet ([employer] [facility]) labetalol 100 mg tablet 100 mg PO BID #180 tabs 09/10/22 08/26/23 Rx tamsulosin 0.4 mg capsule 0.4 mg PO DAILY #90 caps 09/27/22 08/26/23 Rx vitamins-lipotropics tablet 1 tab PO DAILY PRN PER PT LIST 10/02/22 08/26/23 History NEEDED Wheeled Walker #1 ea 10/10/22 08/22/23 Rx atorvastatin 20 mg tablet 20 mg PO DAILY #90 tabs 10/30/22 08/26/23 Rx gemfibrozil 600 mg tablet 600 mg PO BID #180 tabs 11/11/22 08/26/23 Rx omeprazole 20 mg capsule,delayed 20 mg PO DAILY #90 caps 11/11/22 08/26/23 Rx release loperamide 2 mg capsule 2 mg PO DAILY 01/15/23 08/26/23 History calcium carbonate 500 mg calcium 500 mg PO BID #60 tabs 02/05/23 08/26/23 Rx (1,250 mg) tablet acetaminophen 650 mg 650 mg PO HS PRN Pain 02/06/23 08/26/23 History tablet,extended release cholecalciferol (vitamin D3) 50 50 mcg PO DAILY #90 caps 02/28/23 08/26/23 Rx mcg (2,000 unit) capsule apixaban 2.5 mg tablet (Eliquis) 2.5 mg PO BID #180 tabs 03/11/23 08/26/23 Rx potassium chloride 10 mEq 20 meq (2 x 10 mEq) PO BID #360 03/21/23 08/26/23 Rx tablet,extended release tabs furosemide 80 mg tablet 80 mg PO DAILY 90 days #90 tabs 07/02/23 08/26/23 Rx isosorbide mononitrate 60 mg 60 mg PO DAILY #90 tabs 07/02/23 08/26/23 Rx tablet,extended release 24 hr allopurinol 100 mg tablet 200 mg (2 x 100 mg) PO DAILY #180 07/03/23 08/26/23 Rx tabs cilostazol 50 mg tablet 50 mg PO BID #180 tabs 07/03/23 08/26/23 Rx lisinopril 20 mg tablet 20 mg PO DAILY #90 tabs 08/01/23 08/26/23 Rx baclofen 10 mg tablet 10 mg PO HS #90 tabs 08/11/23 08/26/23 Rx magnesium oxide 400 mg (241.3 mg 400 mg PO BID #60 tabs 08/20/23 08/26/23 Rx magnesium) tablet Leonor's Restless Leg 3 tabs sublingual Q4H PRN RESTLESS 08/26/23 08/26/23 History LEGS levothyroxine 175 mcg capsule 175 mcg PO DAILYBB 08/26/23 08/26/23 History Past Med/Surg History Medical History Hypomagnesemia Pacemaker battery depletion HTN (hypertension) Gout Cognitive decline Diabetes mellitus Hypothyroidism HLD (hyperlipidemia) roasterman current use of anticoagulant therapy Atrial fibrillation, permanent Pre-syncope (01/31/14) Chest pain CHF (congestive heart failure) Bradyarrhythmia (01/31/14) Angina pectoris (01/24/14) Surgical History Hx of CABG Family History Mother Breast cancer Myocardial infarction Denies family history of Ovarian cancer Prostate cancer Colorectal cancer Social History Smoking Status: Former smoker Tobacco Type: Cigarettes Second Hand Exposure: No; Do You Dip or Chew Tobacco: No; Hx Alcohol Use: Yes Alcohol type: beer Hx Substance Use: No Preferred Language: Serbian Communication Ability: Effective Visual Impairment: No Limitations Hearing Ability: Use of Hearing Aid Administrative Services Manager Required: No Beliefs That Will Affect Care: None marital status: Current Living Situation: Spouse current occupational status: retired Feels Safe at Home: Yes Childhood Exposure to Second-Hand Smoke: No Dental Care, Regularly: Yes Seatbelt Use: always Sunscreen Use: No Assistive Devices: None Physical Exam Physical Exam: Physical Exam: General: In no acute distress, stated age, well-nourished, non-toxic appearing HEENT: Normocephalic, atraumatic, no scleral icterus, pupils around round, symmetrical, and reactive to light, moist mucus membranes, +JVD, trachea midline, no thyromegaly Chest/Pulm: No respiratory distress, symmetrical chest expansion, crackles noted in the BL lower and middle lung metzger, upper lung metzger are CTA Cardiac: RRR, no murmurs noted Abdomen: Negative for ascites and bruising, normoactive bowel sounds, soft, non-tender to palpation throughout Musculoskeletal: Symmetrical and without signs of acute trauma, upper and lower extremities with full ROM, no atrophy, spasticity, or flaccidity Extremities: Radial, dorsalis pedis, and posterior tibial pulses are intact and symmetrical, no pitting edema noted in the BL LE's Skin: Warm, dry, no rashes , lesions, or scars noted Neuro: Alert and oriented to person, place, month, no focal defects, no tremors noted Psych: No acute distress, calm and cooperative during the exam Results & Data Results & Data Vital Signs (Past 12 Hours) Vital Signs Pulse Resp BP Pulse Ox O2 Del Method 08/26/23 14:50 60 24 99 Room Air 08/26/23 14:50 149/78 H 08/26/23 14:30 61 21 98 Room Air 08/26/23 14:00 60 19 98 Room Air 08/26/23 13:30 60 21 98 Room Air 08/26/23 13:16 97 Room Air 08/26/23 13:06 Room Air 08/26/23 13:05 145/77 H 08/26/23 13:05 71 17 96 Room Air 08/26/23 13:01 75 08/26/23 13:00 76 21 96 Room Air 08/26/23 12:59 Room Air 08/26/23 12:59 70 20 118/90 97 Room Air Laboratory Results Abnormal lab results 08/26/23 08/26/23 08/26/23 Range/Units 13:04 13:36 15:06 RBC 3.32 L (4.70-6.10) M/uL Hgb 10.1 L (14.0-18.0) g/dl Hct 30.8 L (42.0-52.0) % RDW Std Deviation 52.5 H (36.4-46.3) fL RDW Coeff of Gerri 15.6 H (11.5-14.5) % [place]arnett # (Auto) 0.64 H (0.11-0.59) K/uL PT 13.0 H (9.0-12.0) Seconds INR 1.2 H (0.9-1.1) VBG pCO2 54 H (38-50) mmHg Sodium 133 L (136-145) mmol/L Chloride 96 L (98-107) mmol/L BUN 26 H (6-23) mg/dl BUN/Creatinine Ratio 22.0 H (10-20) Glucose 128 H (70-99(Fasting)) mg/dl Troponin I High Sens 20.7 H 21.0 H (0-20) pg/ml B-Natriuretic Peptide 1185 H (0-100) pg/ml Diagnostic Findings Chest X-Ray 08/26/23 13:13 XR chest 1V portable CLINICAL HISTORY: Shortness of breath. COMPARISON STUDY: Chest radiograph August 19, 2023. FINDINGS: Left subclavian pacer, median sternotomy wires and mediastinal surgical clips are noted. Moderate cardiomegaly is unchanged. No pneumothorax or pleural effusion is present. No consolidation needle is identified to suggest pneumonia. There is pulmonary vascular congestion with possible mild pulmonary edema. IMPRESSION: Stable cardiomegaly. Pulmonary vascular congestion with possible mild pulmonary edema. ACT 112: Negative or not required by law. Electronically signed by: Joe Novoa M.D. 08/26/2023 1:55 PM ECG Additional Comments: Ventricular-paced rhythm Abnormal ECG When compared with ECG of 19-AUG-2023 15:09, Premature ventricular complexes are no longer Present Vent. rate has increased BY 6 BPM Code Status & VTE Plan Code Status DNR/DNI VTE Prophylaxis Plan VTE Prophylaxis will be ordered: Yes Supervising Physician Co-Signing Physician Notes Patient seen and examined, chart reviewed, case discussed with ELIZABETH Masterson and I agree with the assessment and plan as above except as otherwise noted Labs and images reviewed 87-year-old male with a history of CHF, CKD, DM 2 who presents with dyspnea, elevated BNP, and x-ray consistent with mild acute on chronic CHF. No chest pain/chest pressure, troponin minimally elevated 21 without significant 2-hour delta and no ischemic EKG changes. history of DM 2 with adequately controlled BSG. He is seen at the bedside on reevaluation no acute questions or concerns. Lungs are with bibasilar crackles but without rales otherwise clear. Since having Lasix has light yellow brisk output into Villalba bag and patient feels improved. . Patient with indwelling Villalba but with no leukocytosis, urinary symptoms, or clinical evidence of infection.Agree with assessment and management as above PG Care Time/CCT Total # of Minutes Spent Total Time Spent with Patient: Total time spent is greater than 50% in coordination of care (as documented) at patient's floor/unit and/or counseling patient: C[place] [address] INT INP/OBS CARE 2/55MIN Patient Type Established Medical Decision Making Moderate Complexity Diagnoses CHF exacerbation I50.9 SOB (shortness of breath) R06.02 Elevated troponin R79.89 Hypomagnesemia E83.42 Urinary retention R33.9 Atrial fibrillation, permanent I48.21 Hypothyroidism E03.9 HTN (hypertension) I10 Diabetes mellitus E11.9
[2023-08-26] MEDS ORDERED: GLUCAGON FOR INJ 1 MG VIAL SQ PRN (15:20)
[2023-08-26] MEDS ORDERED: GLUCOSE 40% GEL 15 GM TUBE PO PRN (15:20)
[2023-08-26] MEDS ORDERED: CARBOHYDRATES FOR HYPOGLYCEMIA PO PRN (15:20)
[2023-08-26] MEDS ORDERED: DEXTROSE 50% 50 ML SYRINGE IV PRN (15:20)
[2023-08-26] MEDS ORDERED: GLUCOSE 10 TAB/TUBE PO PRN (15:20)
[2023-08-26 15:28] LABS: Influenza A virus by PCR Negative (Neg); Influenza B virus by PCR Negative (Neg); RSV by PCR Negative (Neg); SARS CoV2 RNA(COVID-19) Ceph NEGATIVE (Negative)
[2023-08-26 15:47] LABS: Magnesium 1.7 mg/dl (1.7-2.4)
[2023-08-26] MEDS ORDERED: MAGNESIUM SULFATE / D5W 1 GM/100 ML BAG IV ONE (16:12)
--- NOTE | 2023-08-26 16:19 | Emergency Department Note ---
History of Present Illness General Chief Complaint: Shortness of Breath/Dyspnea Time Seen by Provider: 08/26/23 13:14 History of Present Illness Provider Complaint: shortness of breath and cough Onset (ago): day(s) (1) Consistency/Duration: + progressively worsening Relieved By: + upright position Exacerbated By: + lying flat, + exertion and + coughing Known history of: congestive heart failure Associated symptoms: + cough, + orthopnea and + chest congestion; no fever, no wheezing or no sputum production Home Medications Medication Instructions Recorded Confirmed Type clindamycin HCl 150 mg capsule 600 mg PO DIRECTED PRN PRIOR TO 05/27/19 08/26/23 History DENTAL APPOINTMENTS nitroglycerin 0.4 mg sublingual 0.4 mg sublingual Q5M PRN chest 05/27/19 08/26/23 History tablet pain vit C 50 mg-E 15 unit-zinc cit 4.5 1 tab PO DAILY 07/01/21 08/26/23 History mg-lutein 2.5 mg-zeaxan chew tablet ([facility]) labetalol 100 mg tablet 100 mg PO BID #180 tabs 09/10/22 08/26/23 Rx tamsulosin 0.4 mg capsule 0.4 mg PO DAILY #90 caps 09/27/22 08/26/23 Rx vitamins-lipotropics tablet 1 tab PO DAILY PRN PER PT LIST 10/02/22 08/26/23 History NEEDED Wheeled Walker #1 ea 10/10/22 08/22/23 Rx atorvastatin 20 mg tablet 20 mg PO DAILY #90 tabs 10/30/22 08/26/23 Rx gemfibrozil 600 mg tablet 600 mg PO BID #180 tabs 11/11/22 08/26/23 Rx omeprazole 20 mg capsule,delayed 20 mg PO DAILY #90 caps 11/11/22 08/26/23 Rx release loperamide 2 mg capsule 2 mg PO DAILY 01/15/23 08/26/23 History calcium carbonate 500 mg calcium 500 mg PO BID #60 tabs 02/05/23 08/26/23 Rx (1,250 mg) tablet acetaminophen 650 mg 650 mg PO HS PRN Pain 02/06/23 08/26/23 History tablet,extended release cholecalciferol (vitamin D3) 50 50 mcg PO DAILY #90 caps 02/28/23 08/26/23 Rx mcg (2,000 unit) capsule apixaban 2.5 mg tablet (Eliquis) 2.5 mg PO BID #180 tabs 03/11/23 08/26/23 Rx potassium chloride 10 mEq 20 meq (2 x 10 mEq) PO BID #360 03/21/23 08/26/23 Rx tablet,extended release tabs furosemide 80 mg tablet 80 mg PO DAILY 90 days #90 tabs 07/02/23 08/26/23 Rx isosorbide mononitrate 60 mg 60 mg PO DAILY #90 tabs 07/02/23 08/26/23 Rx tablet,extended release 24 hr allopurinol 100 mg tablet 200 mg (2 x 100 mg) PO DAILY #180 07/03/23 08/26/23 Rx tabs cilostazol 50 mg tablet 50 mg PO BID #180 tabs 07/03/23 08/26/23 Rx lisinopril 20 mg tablet 20 mg PO DAILY #90 tabs 08/01/23 08/26/23 Rx baclofen 10 mg tablet 10 mg PO HS #90 tabs 08/11/23 08/26/23 Rx magnesium oxide 400 mg (241.3 mg 400 mg PO BID #60 tabs 08/20/23 08/26/23 Rx magnesium) tablet 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 Atrial fibrillation, permanent Pre-syncope (01/31/14) Chest pain CHF (congestive heart failure) Bradyarrhythmia (01/31/14) Angina pectoris (01/24/14) Surgical History Hx of CABG Family History Mother Breast cancer Myocardial infarction Denies family history of Ovarian cancer Prostate cancer Colorectal cancer Social History Smoking Status: Former smoker Tobacco Type: Cigarettes Second Hand Exposure: No; Do You Dip or Chew Tobacco: No; Hx Alcohol Use: Yes Alcohol type: beer Hx Substance Use: No Preferred Language: Japanese Communication Ability: Effective Visual Impairment: No Limitations Hearing Ability: Use of Hearing Aid 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 Required: No Beliefs That Will Affect Care: None marital status: Current Living Situation: Spouse current occupational status: retired Feels Safe at Home: Yes Childhood Exposure to Second-Hand Smoke: No Dental Care, Regularly: Yes Seatbelt Use: always Sunscreen Use: No Assistive Devices: None Physical Exam 2 Vital Signs: Vital Signs - 24 hr 08/26/23 12:59 08/26/23 12:59 08/26/23 13:00 Pulse Rate 70 76 Pulse Rate from Sp O2 Sensor 75 Respiratory Rate 20 21 Respiratory Effort / Characteristics Non-Labored Respiratory Depth Normal Blood Pressure 118/90 Blood Pressure Sho n 99 Pulse Oximetry 97 96 Oxygen Delivery Me thod Room Air Room Air Room Air Sepsis Recent Feve r Within 48 Hours No Sepsis New/Unexpla ined Change in Men raheel Status No Sepsis Action Take n by Nursing No Action Required Pulse Oximetry Pos t Tiitration 97 08/26/23 13:01 08/26/23 13:05 08/26/23 13:05 Pulse Rate 75 71 Pulse Rate from Sp O2 Sensor 71 Respiratory Rate 17 Respiratory Effort / Characteristics Respiratory Depth Blood Pressure 145/77 H Blood Pressure Sho n 111 Pulse Oximetry 96 Oxygen Delivery Me thod Room Air Sepsis Recent Feve r Within 48 Hours Sepsis New/Unexpla ined Change in Men raheel Status Sepsis Action Take n by Nursing Pulse Oximetry Pos t Tiitration 08/26/23 13:06 08/26/23 13:16 08/26/23 13:30 Pulse Rate 60 Pulse Rate from Sp O2 Sensor 61 Respiratory Rate 21 Respiratory Effort / Characteristics Respiratory Depth Blood Pressure Blood Pressure Sho n Pulse Oximetry 97 98 Oxygen Delivery Me thod Room Air Room Air Room Air Sepsis Recent Feve r Within 48 Hours Sepsis New/Unexpla ined Change in Men raheel Status Sepsis Action Take n by Nursing Pulse Oximetry Pos t Tiitration 08/26/23 14:00 08/26/23 14:30 08/26/23 14:50 Pulse Rate 60 61 Pulse Rate from Sp O2 Sensor 60 61 Respiratory Rate 19 21 Respiratory Effort / Characteristics Respiratory Depth Blood Pressure 149/78 H Blood Pressure Sho n 104 Pulse Oximetry 98 98 Oxygen Delivery Me thod Room Air Room Air Sepsis Recent Feve r Within 48 Hours Sepsis New/Unexpla ined Change in Men raheel Status Sepsis Action Take n by Nursing Pulse Oximetry Pos t Tiitration 08/26/23 14:50 08/26/23 15:00 08/26/23 15:01 Pulse Rate 60 64 62 Pulse Rate from Sp O2 Sensor 60 61 63 Respiratory Rate 24 23 21 Respiratory Effort / Characteristics Respiratory Depth Blood Pressure Blood Pressure Sho n Pulse Oximetry 99 96 98 Oxygen Delivery Me thod Room Air Sepsis Recent Feve r Within 48 Hours Sepsis New/Unexpla ined Change in Men raheel Status Sepsis Action Take n by Nursing Pulse Oximetry Pos t Tiitration 08/26/23 15:01 08/26/23 15:30 08/26/23 15:31 Pulse Rate 61 61 Pulse Rate from Sp O2 Sensor 61 60 Respiratory Rate 19 18 Respiratory Effort / Characteristics Respiratory Depth Blood Pressure 133/84 Blood Pressure Sho n 88 Pulse Oximetry 97 97 Oxygen Delivery Me thod Sepsis Recent Feve r Within 48 Hours Sepsis New/Unexpla ined Change in Men raheel Status Sepsis Action Take n by Nursing Pulse Oximetry Pos t Tiitration 08/26/23 15:31 08/26/23 16:00 08/26/23 16:01 Pulse Rate 66 62 Pulse Rate from Sp O2 Sensor 63 62 Respiratory Rate 20 25 H Respiratory Effort / Characteristics Respiratory Depth Blood Pressure 128/110 H Blood Pressure Sho n 121 Pulse Oximetry 98 98 Oxygen Delivery Me thod Room Air Room Air Sepsis Recent Feve r Within 48 Hours Sepsis New/Unexpla ined Change in Men raheel Status Sepsis Action Take n by Nursing Pulse Oximetry Pos t Tiitration 08/26/23 16:01 Pulse Rate Pulse Rate from Sp O2 Sensor Respiratory Rate Respiratory Effort / Characteristics Respiratory Depth Blood Pressure 154/93 H Blood Pressure Sho n 127 Pulse Oximetry Oxygen Delivery Me thod Sepsis Recent Feve r Within 48 Hours Sepsis New/Unexpla ined Change in Men raheel Status Sepsis Action Take n by Nursing Pulse Oximetry Pos t Tiitration Physical Exam: Physical Exam GENERAL: oriented to person, place, and time. appears well-developed and well- nourished. HENT: Exam performed. - Head: Normocephalic and atraumatic. EYES: Conjunctivae and EOM are normal. Right eye exhibits no discharge. Left eye exhibits no discharge. No scleral icterus. NECK: Normal range of motion. Neck supple. No JVD present. CV: Normal rate, regular rhythm, normal heart sounds and intact distal pulses. There is no peripheral edema. Palpable radial pulses bue. PULM/CHEST: Effort normal inspiratory rales bilaterally. ABD: The abdomen is soft. There is no tenderness. NEURO: Motor and sensation grossly intact. SKIN: Skin is warm and dry. He is not diaphoretic. PSYCH: normal mood and affect. Behavior is normal. Judgment and thought content normal. Course Course 1314: The patient was evaluated in room A4. A complete history and physical exam was performed Cardiac monitoring: An order was placed for continuous cardiac monitoring. The monitor shows a rate of 80 with paced rhythm interpreted by 1450: Vital signs stable. Labs show an elevated troponin elevated BNP and imaging shows cardiomegaly with cephalization. Discussed the case with the patient's and children on the 's phone [phone] and was decided that it would be best to keep the patient inpatient and diurese him. [facility] hospitalist team will be notified of admission. Administered Medications Discontinued Medications Furosemide (Furosemide 40 Mg/4 Ml Vial) 40 mg IV ONE ONE Stop: 08/26/23 14:51 Last Admin: 08/26/23 15:07 Dose: 40 mg Documented By: PRIMITIVO Medical Decision Making Laboratory Data Attestation: I reviewed the patient's lab results. 08/26/23 13:04 08/26/23 13:04 Lab Results 08/26/23 08/26/23 08/26/23 Range/Units 13:04 13:36 15:06 WBC 6.63 (4.8-10.8) K/ul RBC 3.32 L (4.70-6.10) M/uL Hgb 10.1 L (14.0-18.0) g/dl Hct 30.8 L (42.0-52.0) % MCV 92.8 (80.0-100.0) fL MCH 30.4 (25.0-34.0) pg MCHC 32.8 (32.0-36.0) g/dL RDW Std Deviation 52.5 H (36.4-46.3) fL RDW Coeff of Gerri 15.6 H (11.5-14.5) % Plt Count 201 (130-400) K/uL MPV 11.2 (9.4-12.4) fL Immature Gran % (Auto) 0.3 % Neut % (Auto) 67.2 % Lymph % (Auto) 18.6 % Dane % (Auto) 9.7 % Eos % (Auto) 3.0 % Baso % (Auto) 1.2 % Neut # (Auto) 4.46 (1.40-6.50) K/uL Lymph # (Auto) 1.23 (1.20-3.40) K/uL Dane # (Auto) 0.64 H (0.11-0.59) K/uL Eos # (Auto) 0.20 (0.00-0.50) K/uL Baso # (Auto) 0.08 (0.00-0.20) K/uL Immature Gran # (Auto) 0.02 (0.01-0.20) K/uL PT 13.0 H (9.0-12.0) Seconds INR 1.2 H (0.9-1.1) APTT 31 (21-31) Seconds PTT Ratio 1.1 VBG pH 7.38 (7.36-7.41) VBG pCO2 54 H (38-50) mmHg VBG pO2 34 mmHg VBG HCO3 32 mmol/L VBG O2 Saturation < 60.0 % VBG Base Excess 5.3 mEq/L Sodium 133 L (136-145) mmol/L Potassium 4.8 (3.5-5.1) mmol/L Chloride 96 L (98-107) mmol/L Carbon Dioxide 31 (21-32) mmol/L Anion Gap 6 (3-11) BUN 26 H (6-23) mg/dl Creatinine 1.18 (0.6-1.4) mg/dl Est Cr Clr Drug Dosing 51.9 ml/min Est GFR ( Amer) 64.4 ml/min Est GFR (Non-Af Amer) 55.5 ml/min BUN/Creatinine Ratio 22.0 H (10-20) Glucose 128 H (70-99(Fasting)) mg/dl Calcium 9.0 (8.6-10.3) mg/dl Magnesium 1.7 (1.7-2.4) mg/dl Total Bilirubin 0.4 (0.2-1.0) mg/dl AST 17 (13-39) U/L ALT 7 (7-52) U/L Alkaline Phosphatase 81 (34-104) U/L Troponin I High Sens 20.7 H 21.0 H (0-20) pg/ml B-Natriuretic Peptide 1185 H (0-100) pg/ml Total Protein 6.9 (6.0-8.3) gm/dl Albumin 4.0 (3.4-5.0) gm/dl Globulin 2.9 (2.5-4.0) gm/dl Albumin/Globulin Ratio 1.4 (0.9-2) SARS-CoV-2 (PCR) NEGATIVE (Negative) Influenza Type A (PCR) Negative (Neg) Influenza Type B (PCR) Negative (Neg) RSV (RT-PCR) Negative (Neg) Imaging Data Attestation: I personally reviewed and interpreted this imaging study as follows: My Impression: Cardiomegaly with cephalization Radiologist's Impression: Chest X-Ray 08/26/23 13:13 XR chest 1V portable CLINICAL HISTORY: Shortness of breath. COMPARISON STUDY: Chest radiograph August 19, 2023. FINDINGS: Left subclavian pacer, median sternotomy wires and mediastinal surgical clips are noted. Moderate cardiomegaly is unchanged. No pneumothorax or pleural effusion is present. No consolidation needle is identified to suggest pneumonia. There is pulmonary vascular congestion with possible mild pulmonary edema. IMPRESSION: Stable cardiomegaly. Pulmonary vascular congestion with possible mild pulmonary edema. ACT 112: Negative or not required by law. Electronically signed by: Joe Novoa M.D. 08/26/2023 1:55 PM ECG Data Attestation: I personally reviewed and interpreted this ECG as follows: Interpretation: Paced rhythm with a rate of 76. QRS 2 8 QTc 555. No ectopy. [facility] Narrative 1314: The patient was evaluated in room A4. A complete history and physical exam was performed Cardiac monitoring: An order was placed for continuous cardiac monitoring. The monitor shows a rate of 80 with paced rhythm interpreted by me 1450: Vital signs stable. Labs show an elevated troponin elevated BNP and imaging shows cardiomegaly with cephalization. Discussed the case with the patient's and children on the 's phone [phone] and was decided that it would be best to keep the patient inpatient and diurese him. [facility] hospitalist team will be notified of admission. Impression & Plan CHF (congestive heart failure) Discharge Plan Visit Data Chief Complaint: Shortness of Breath/Dyspnea ED Provider: Raheem Valdez Discharge Problem: CHF (congestive heart failure) Patient Disposition: Admitted As Inpatient Forms Stand Alone Forms: My [facility] Prescriptions Prescriptions: No Action labetalol 100 mg tablet 100 mg PO BID Qty: 180 3RF tamsulosin 0.4 mg capsule 0.4 mg PO DAILY Qty: 90 3RF (DME) Wheeled Walker Misc See Rx Instructions .Route Qty: 1 0RF Rx Instructions: As directed atorvastatin 20 mg tablet 20 mg PO DAILY Qty: 90 3RF omeprazole 20 mg capsule,delayed release(DR/EC) 20 mg PO DAILY Qty: 90 3RF gemfibrozil 600 mg tablet 600 mg PO BID Qty: 180 3RF calcium carbonate 500 mg calcium (1,250 mg) tablet 500 mg PO BID Qty: 60 0RF cholecalciferol (vitamin D3) 50 mcg (2,000 unit) capsule 50 mcg PO DAILY Qty: 90 3RF potassium chloride 10 mEq tablet extended release 20 meq PO BID Qty: 360 3RF furosemide 80 mg tablet 80 mg PO DAILY 90 Days Qty: 90 3RF isosorbide mononitrate 60 mg tablet extended release 24 hr 60 mg PO DAILY Qty: 90 1RF allopurinol 100 mg tablet 200 mg PO DAILY Qty: 180 3RF cilostazol 50 mg tablet 50 mg PO BID Qty: 180 3RF lisinopril 20 mg tablet 20 mg PO DAILY Qty: 90 2RF baclofen 10 mg tablet 10 mg PO HS Qty: 90 3RF nitroglycerin 0.4 mg tablet, sublingual 0.4 mg SL Q5M PRN (Reason: chest pain) clindamycin HCl 150 mg capsule 600 mg PO DIRECTED PRN (Reason: PRIOR TO DENTAL APPOINTMENTS) Ocuvite [facility] 50 mg-15 unit- 4.5 mg-2.5 mg Tablet,Chewable 1 tab PO DAILY acetaminophen 650 mg tablet extended release 650 mg PO HS PRN (Reason: Pain) loperamide 2 mg Capsule 2 mg PO DAILY Eliquis 2.5 mg tablet 2.5 mg PO BID Qty: 180 3RF magnesium oxide 400 mg (241.3 mg magnesium) Tablet 400 mg PO BID Qty: 60 2RF vitamins-lipotropics Tablet 1 tab PO DAILY PRN (Reason: PER PT LIST NEEDED) [facility] 3 tabs sublingual Q4H PRN (Reason: RESTLESS LEGS) levothyroxine 175 mcg capsule 175 mcg PO DAILYBB Rx Instructions: note larger dose; ideally take well before breakfast on empty stomach Referrals Referrals: Marcelino French DO [Primary Care Provider] - Discharge Problem: CHF (congestive heart failure) Qualifiers: Heart failure type: unspecified Heart failure chronicity: unspecified Qualified Code(s): I50.9 - Heart failure, unspecified
[2023-08-26 16:41] LABS: Appearance Urine Cloudy (Clear); Bacteria Urine Automated 4+ (Negative); Bilirubin Urine Negative (Negative); Blood Urine Trace (Negative); Color Urine Yellow; Epithelial Cell Urine Auto 0-5 /lpf (0-5); Glucose Urine UA Negative (Negative); Ketones Urine Negative (Negative); Leukocyte Esterase Urine 3+ (Negative); Nitrite Urine Negative (Negative); Protein Urine 2+ (Negative); RBC Urine Automated 0-4 /hpf (0-4); Specific Gravity Urine 1.014 (1.000-1.030); Urobilinogen Urine Negative (Negative); WBC Urine Automated >30 /hpf (0-5)
--- NOTE | 2023-08-26 16:48 | Electrocardiogram Report ---
Test Reason : Blood Pressure : / mmHG Vent. Rate : 076 BPM Atrial Rate : 075 BPM P-R Int : 000 ms QRS Dur : 208 ms QT Int : 494 ms P-R-T Axes : 000 -65 104 degrees QTc Int : 555 ms Ventricular-paced rhythm Abnormal ECG When compared with ECG of 19-AUG-2023 15:09, Premature ventricular complexes are no longer Present Vent. rate has increased BY 6 BPM Confirmed by Henrique Reese ([id number]) on 08/26/2023 4:48:03 PM Referred By: Confirmed By:Henrique Reese
[2023-08-26] MEDS ORDERED: ACETAMINOPHEN 325 MG TAB PO PRN (18:28)
[2023-08-26] MEDS: cilostazoL 100 MG TAB PO SCH (20:19)
[2023-08-26] MEDS: POTASSIUM CHLORIDE CRTAB 20 MEQ TABCR PO SCH (20:21)
[2023-08-26] MEDS: LABETALOL HCL 100 MG TAB PO SCH (20:22)
[2023-08-26] MEDS: MAGNESIUM OXIDE 400 MG TAB PO SCH (20:22)
[2023-08-26] MEDS: APIXABAN 2.5 MG TAB PO SCH (20:22)
[2023-08-26] MEDS: BACLOFEN 10 MG TAB PO SCH (20:22)
[2023-08-26] MEDS ORDERED: MELATONIN 3 MG TAB PO PRN (20:28)
[2023-08-26] MEDS: INSULIN ASPART PER UNIT CHARGE SC SCH ×2 (20:33→21:04)
[2023-08-26] MEDS ORDERED: gemfibroziL 600 MG TAB PO SCH (21:00)
[2023-08-27 04:35] LABS: Hematocrit (blood only) 31.1 % (42.0-52.0); Mean Corpuscular Hemoglobin 30.2 pg (25.0-34.0); Mean Corpuscular Hgb Conc 32.2 g/dL (32.0-36.0); Mean Platelet Volume 11.4 fL (9.4-12.4); Platelet Count 201 K/uL (130-400); RDW Coefficient of Variation 15.2 % (11.5-14.5); RDW Standard Deviation 51.9 fL (36.4-46.3); Red Blood Count 3.31 M/uL (4.70-6.10); White Blood Count 7.39 K/ul (4.8-10.8)
[2023-08-27 04:52] LABS: BUN Creatinine Ratio 20.8 (10-20); Calcium 9.1 mg/dl (8.6-10.3); Creatinine Clr Calc Pharmacy 48.9 ml/min; Est GFR (Non-African American) 51.8 ml/min; Potassium 4.1 mmol/L (3.5-5.1)
[2023-08-27 04:59] LABS: Troponin I High Sensitivity 22.6 pg/ml (0-20)
[2023-08-27 05:06] LABS: INR 1.2 (0.9-1.1); Prothrombin Time 13.1 Seconds (9.0-12.0)
--- NOTE | 2023-08-27 07:18 | XRay Report ---
XR chest 1V portable CLINICAL HISTORY: Follow up from 08/26 CXR COMPARISON STUDY: Chest radiograph August 26, 2023. FINDINGS: Left subclavian pacer, median sternotomy wires and mediastinal surgical clips are noted. Ca rdiomegaly is unchanged. This there is a trace left pleural effusion. Left basilar opacity has develo ped. There is no pneumothorax. Interstitial thickening persists. IMPRESSION: 1. Cardiomegaly with persistent pulmonary edema. 2. Small left pleural effusion. Interval development of left basilar opacity which may reflect a supe rimposed infectious process. ACT 112: Negative or not required by law. Electronically signed by: Joe Novoa M.D. 08/27/2023 7:17 AM
[2023-08-27] MEDS: LEVOTHYROXINE SODIUM 175 MCG TABLET PO SCH (08:52)
[2023-08-27] MEDS: PANTOprazole 40 MG TAB PO SCH (08:52)
[2023-08-27] MEDS: allopurinoL 100 MG TAB PO SCH (08:52)
[2023-08-27] MEDS: POTASSIUM CHLORIDE CRTAB 20 MEQ TABCR PO SCH ×2 (08:53→20:56)
[2023-08-27] MEDS: INSULIN ASPART PER UNIT CHARGE SC SCH ×4 (08:55→20:57)
[2023-08-27] MEDS: ISOSORBIDE MONO EXTENDED REL 60 MG TABCR PO SCH (10:17)
[2023-08-27] MEDS: lisinopril 20 MG TAB PO SCH (10:17)
[2023-08-27] MEDS: cilostazoL 100 MG TAB PO SCH ×2 (10:17→20:43)
[2023-08-27] MEDS: APIXABAN 2.5 MG TAB PO SCH ×2 (10:17→20:42)
[2023-08-27] MEDS: TAMSULOSIN HCL 0.4 MG CAP PO SCH (10:19)
[2023-08-27] MEDS: MAGNESIUM OXIDE 400 MG TAB PO SCH ×2 (10:19→20:56)
[2023-08-27] MEDS: LABETALOL HCL 100 MG TAB PO SCH ×2 (10:19→20:57)
[2023-08-27] MEDS: FUROSEMIDE 40 MG/4 ML VIAL IV SCH ×2 (10:48→20:54)
[2023-08-27] MEDS: ATORVASTATIN 20 MG TAB PO SCH (10:55)
--- NOTE | 2023-08-27 11:37 | Hospitalist Progress Note ---
Date of Service August 27, 2023 Assessment & Plan (1) CHF exacerbation: Plan: Probably acute diastolic. Cardiac echo report pending. Brisk diuresis with parenteral Lasix. Lisinopril was held on admission and has been restarted. Continue other medications. Will repeat portable chest x-ray again tomorrow, August 28 (2) SOB (shortness of breath): Plan: Due to congestive heart failure. This should resolve with resolution of CHF. (3) Elevated troponin: Plan: No trending. Appears to be due to supply/demand mismatch. No chest pain. No acute EKG changes (4) Hypomagnesemia: Plan: Corrected with parenteral replacement. (5) Urinary retention: Plan: chronic villalba cath in place without complications. Supportive care (6) Atrial fibrillation, permanent: Plan: Currently in ventricular paced rhythm . Continue eliquis . Telemetry (7) Hypothyroidism: Plan: Stable. Continue levothyroxine (8) HTN (hypertension): Plan: Stable. Lisinopril has been restarted. (9) Diabetes mellitus: Plan: ADA diet. Sliding scale coverage as needed. Plan Hopeful discharge to home tomorrowAugust 28 Admission and Anticipated Discharge Date Admission Date: August 26, 2023 Subjective Alert and oriented. No distress. Brisk diuresis of 3 L with IV Lasix. Cardiac echo report is pending. He is on room air. Lisinopril has been restarted which she takes at home. Probably home tomorrowAugust 28 Review of Systems 2 Review of Systems: Constitutional-no fever or chills ENT-no blurred vision, no double vision, no epistaxis, no sore throat Respiratory-no cough, no wheezing. Dyspnea on exertion Cardiac-no palpitations, no chest pain, no syncope GI-no nausea, vomiting, diarrhea, melena, hematochezia -no urinary retention, no urinary incontinence, no dysuria, no hematuria Musculoskeletal-no joint pain, no muscle tenderness Skin-no bruising, no rashes, no pruritus Neuro-no isolated weakness, no paresthesia, no weakness Psych-no depression, no anxiety Physical Exam 2 Physical Exam: General-alert and oriented x3, no fevers, no chills HEENT-head atraumatic and normocephalic, pupils equal and reactive to light, extraocular muscles intact Neck-no lymphadenopathy or thyromegaly, trachea midline Chest-faint bibasilar inspiratory rales. No rhonchi. No wheezing Cardiac-regular rate and rhythm, normal S1 and S2 Abdomen-normal bowel sounds, nontender, no hepatosplenomegaly Extremities-no cyanosis, clubbing, or edema Neuro-cranial nerves II through XII intact, motor and sensory function within normal limits, strength symmetrical, no focal deficits Psych-normal affect, normal mood Results & Data Results & Data Vital Signs (Past 12 Hours) Vital Signs Temp Pulse Pulse Resp BP Pulse Ox O2 Del Method 08/27/23 07:42 36.6 C 63 20 145/75 H 94 Room Air 08/27/23 06:52 67 08/27/23 03:49 36.7 C 69 18 152/84 H 97 Nasal Cannula 08/27/23 00:00 36.7 C 69 20 139/82 99 Nasal Cannula 08/26/23 23:58 73 O2 Flow Rate 08/27/23 07:42 08/27/23 06:52 08/27/23 03:49 2 08/27/23 00:00 2 08/26/23 23:58 Laboratory Results 08/27/23 03:25 08/27/23 03:25 PG Care Time/CCT Total # of Minutes Spent Total Time Spent with Patient: Total time spent is greater than 50% in coordination of care (as documented) at patient's floor/unit and/or counseling patient: Coding Level of Care Code 20772 SUB INP/OBS CARE 3/50MIN Diagnoses CHF exacerbation I50.9 SOB (shortness of breath) R06.02 Elevated troponin R79.89 Hypomagnesemia E83.42 Urinary retention R33.9 Atrial fibrillation, permanent I48.21 Hypothyroidism E03.9 HTN (hypertension) I10 Diabetes mellitus E11.9
--- NOTE | 2023-08-27 14:31 | XCELERA ---
[id number]
[2023-08-27] MEDS: CIPROFLOXACIN / D5W 400 MG/200 ML BAG IV SCH (16:34)
[2023-08-27] MEDS: BACLOFEN 10 MG TAB PO SCH (20:43)
[2023-08-28] MEDS: LEVOTHYROXINE SODIUM 175 MCG TABLET PO SCH (06:10)
[2023-08-28] MEDS: CIPROFLOXACIN / D5W 400 MG/200 ML BAG IV SCH (06:10)
[2023-08-28 06:23] LABS: Hematocrit (blood only) 31.7 % (42.0-52.0); Hemoglobin 10.2 g/dl (14.0-18.0); Mean Corpuscular Hemoglobin 30.2 pg (25.0-34.0); Mean Corpuscular Hgb Conc 32.2 g/dL (32.0-36.0); Mean Corpuscular Volume 93.8 fL (80.0-100.0); Mean Platelet Volume 10.5 fL (9.4-12.4); Platelet Count 201 K/uL (130-400); RDW Coefficient of Variation 15.3 % (11.5-14.5); RDW Standard Deviation 52.2 fL (36.4-46.3); Red Blood Count 3.38 M/uL (4.70-6.10); White Blood Count 6.32 K/ul (4.8-10.8)
[2023-08-28 06:45] LABS: BUN Creatinine Ratio 21.6 (10-20); Calcium 9.1 mg/dl (8.6-10.3); Creatinine Clr Calc Pharmacy 51.7 ml/min; Est GFR (African American) 65.7 ml/min; Est GFR (Non-African American) 56.7 ml/min; Potassium 3.9 mmol/L (3.5-5.1)
--- NOTE | 2023-08-28 07:13 | XRay Report ---
XR chest 1V portable HISTORY: 87 years-old Male CHF acute shortness of breath COMPARISON: 08/27/2023 TECHNIQUE: AP view of the chest FINDINGS: Cardiac silhouette is enlarged. Median sternotomy. Pulmonary vascular congestion. Left subclavian pac er. Chronic interstitial coarsening without pneumothorax, pleural effusion or airspace consolidation. The bones of the chest appear grossly intact. IMPRESSION: 1. Cardiomegaly with mild persistent pulmonary edema. 2. Improved aeration of the left lung base with resolution of the left small pleural effusion. ACT 112: Negative or not required by law. The above report was generated using voice recognition software. It may contain grammatical, syntax o r spelling errors. Electronically signed by: Ignacio Ann M.D. 08/28/2023 7:12 AM
[2023-08-28] MEDS: ATORVASTATIN 20 MG TAB PO SCH (08:58)
[2023-08-28] MEDS: TAMSULOSIN HCL 0.4 MG CAP PO SCH (08:58)
[2023-08-28] MEDS: MAGNESIUM OXIDE 400 MG TAB PO SCH (08:58)
[2023-08-28] MEDS: PANTOprazole 40 MG TAB PO SCH (08:59)
[2023-08-28] MEDS: lisinopril 20 MG TAB PO SCH (09:00)
[2023-08-28] MEDS: cilostazoL 100 MG TAB PO SCH (09:00)
[2023-08-28] MEDS: LABETALOL HCL 100 MG TAB PO SCH (09:00)
[2023-08-28] MEDS: allopurinoL 100 MG TAB PO SCH (09:00)
[2023-08-28] MEDS: ISOSORBIDE MONO EXTENDED REL 60 MG TABCR PO SCH (09:01)
[2023-08-28] MEDS: APIXABAN 2.5 MG TAB PO SCH (09:01)
[2023-08-28] MEDS: POTASSIUM CHLORIDE CRTAB 20 MEQ TABCR PO SCH (09:03)
[2023-08-28] MEDS: INSULIN ASPART PER UNIT CHARGE SC SCH ×2 (09:07→12:57)
[2023-08-28] MEDS: FUROSEMIDE 40 MG/4 ML VIAL IV SCH (09:11)
--- NOTE | 2023-08-28 10:30 | Discharge Summary ---
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 Per the EMS staff, the patient received a DuoNeb treatment in route with improvement in symptoms. He remained stable in the ED. Labs were significant for VBG pH of 7.38, pCO2 of 54, and pO2 of 34, sodium of 133, BNP of 1185 (up from 874 as of 08/19/23), initial high sen trop of 20.7, and Covid19/LEXII/Influenza negative. Chest xray was read as Stable cardiomegaly. Pulmonary vascular congestion with possible mild pulmonary edema.. Prior to admission the patient was given 40 mg IV lasix. At the time of the exam the patient was sitting in bed in no acute distress. He states that he has been experiencing increased SOB/JULIO/Orthopnea. He states he was having similar symptoms prior to his last admission. He denies any recent fever, chills, chest pain/pressure, nausea, vomiting, dysuria, hematuria, diarrhea, melena, and recent trauma. He has had a non-productive cough over this time. I spoke with his , Latanya Dueñas [phone], as she organizes his medications. She states that he has not missed a dose of his 80 mg PO lasix since being discharged on 08/20. When discussing diet, she states that he does not put extra salt on his food. When discussing liquids, she states that he does not drink much water but drinks orange juice and "a lot of milk". When asked, she states that she does not check the sodium content of these liquids. She confirms he has a living will and is a DNR/DNI. She is his POA/medical decision maker due to his dementia. Per chart review, the patient was recently admitted to [facility] from 08/19-08/20 for bradycardia and hypomagnesemia. He was evaluated by Cardiology and his pacemaker was interrogated. Per their consult note, "his bradycardia was likely secondary to the pulse deficit created by PVCs most likely in a bigeminal pattern vs singlet PVCs in combination with couplets.". He was recommended to nohemy gatica all cardiac medications as prescribed. His magnesium level was stabilized prior to discharged and he was discharged with a BID prescription for mag-oxide. Please refer to Dr. Tate's attestation for any changes to the treatment plan Principal Diagnosis Acute on chronic systolic congestive heart failure, gram-negative UTI Discharge Exam General-alert and oriented x3, no fevers, no chills HEENT-head atraumatic and normocephalic, pupils equal and reactive to light, extraocular muscles intact Neck-no lymphadenopathy or thyromegaly, trachea midline Chest-faint bibasilar inspiratory rales. No rhonchi. No wheezing Cardiac-regular rate and rhythm, normal S1 and S2 Abdomen-normal bowel sounds, nontender, no hepatosplenomegaly Extremities-no cyanosis, clubbing, or edema Neuro-cranial nerves II through XII intact, motor and sensory function within normal limits, strength symmetrical, no focal deficits Psych-normal affect, normal mood Discharge Data Allergies Allergy/AdvReac Type Severity Reaction Status Date / Time codeine Allergy Unknown CAN'T Verified 08/26/23 15:08 REMEMBER morphine Allergy Unknown CAN'T Verified 08/26/23 15:08 REMEMBER Penicillins Allergy Unknown CAN'T Verified 08/26/23 15:08 REMEMBER Consultations 08/26/23 14:51 ED Decision to Admit Stat Hospital Course (1) CHF exacerbation: Acute on chronic systolic CHF. Cardiac echo reveals ejection fraction of 20%. He has diuresed nicely with IV Lasix. Chest x-ray done today, August 28, looks better. He is on room air. 2 separate gram-negative's isolated in the urine culture. He is now on Cipro. Previous cultures grew Serratia and Klebsiella. Will continue Cipro at discharge. He flatly refuses to consider SNF placement. He will be discharged home today, August 28 (2) SOB (shortness of breath): Due to congestive heart failure. Now resolved (3) Elevated troponin: No trending. Appears to be due to supply/demand mismatch. No chest pain. No acute EKG changes (4) Hypomagnesemia: Corrected with parenteral replacement. (5) Urinary retention: chronic villalba cath in place without complications. Supportive care (6) Atrial fibrillation, permanent: Currently in ventricular paced rhythm . Continue eliquis . Telemetry (7) Hypothyroidism: Stable. Continue levothyroxine (8) HTN (hypertension): Stable. Lisinopril has been restarted. (9) Diabetes mellitus: ADA diet. Sliding scale coverage as needed. Plan Home todayAugust 28 Total Time Total Time Spent Total Time Spent (In Minutes): 45-minute Discharge Plan Discharge Items Patient Disposition: Home - Self-Care Reason For Visit: SOB/JULIO, CHF EXACERBATION Discharge Diagnosis: Acute on chronic systolic CHF, gram-negative UTI Activity: Resume your previous activity Non-emergency contact: Primary Care Provider Call non-emergency contact if: your symptoms worsen Follow-up/Referrals: Marcelino French DO [Primary Care Provider] - Diet: Carb Consistent or DM2 and Heart Healthy Addtl Attending Provider Instructions: Lasix has been increased to 80 mg twice daily. Take Cipro antibiotic for the urinary tract infection for 5 more days Pending Studies at Discharge: Yes Studies:: Final urine culture results Stand-Alone Forms: My [facility] [place] [employer], Smoking Cessation Medications and DC Order Prescriptions: New furosemide [Lasix] 80 mg tablet 80 mg PO BID Qty: 60 0RF ciprofloxacin HCl [Cipro] 500 mg tablet 500 mg PO BID Qty: 10 0RF Continued labetalol 100 mg tablet 100 mg PO BID Qty: 180 3RF tamsulosin 0.4 mg capsule 0.4 mg PO DAILY Qty: 90 3RF (DME[facility] See Rx Instructions .Route Qty: 1 0RF Rx Instructions: As directed atorvastatin 20 mg tablet 20 mg PO DAILY Qty: 90 3RF omeprazole 20 mg capsule,delayed release(DR/EC) 20 mg PO DAILY Qty: 90 3RF gemfibrozil 600 mg tablet 600 mg PO BID Qty: 180 3RF calcium carbonate 500 mg calcium (1,250 mg) tablet 500 mg PO BID Qty: 60 0RF cholecalciferol (vitamin D3) 50 mcg (2,000 unit) capsule 50 mcg PO DAILY Qty: 90 3RF potassium chloride 10 mEq tablet extended release 20 meq PO BID Qty: 360 3RF isosorbide mononitrate 60 mg tablet extended release 24 hr 60 mg PO DAILY Qty: 90 1RF allopurinol 100 mg tablet 200 mg PO DAILY Qty: 180 3RF cilostazol 50 mg tablet 50 mg PO BID Qty: 180 3RF lisinopril 20 mg tablet 20 mg PO DAILY Qty: 90 2RF baclofen 10 mg tablet 10 mg PO HS Qty: 90 3RF nitroglycerin 0.4 mg tablet, sublingual 0.4 mg SL Q5M PRN (Reason: chest pain) clindamycin HCl 150 mg capsule 600 mg PO DIRECTED PRN (Reason: PRIOR TO DENTAL APPOINTMENTS) Ocuvite Eye Health 50 mg-15 unit- 4.5 mg-2.5 mg Tablet,Chewable 1 tab PO DAILY acetaminophen 650 mg tablet extended release 650 mg PO HS PRN (Reason: Pain) loperamide 2 mg Capsule 2 mg PO DAILY Eliquis 2.5 mg tablet 2.5 mg PO BID Qty: 180 3RF magnesium oxide 400 mg (241.3 mg magnesium) Tablet 400 mg PO BID Qty: 60 2RF vitamins-lipotropics Tablet 1 tab PO DAILY PRN (Reason: PER PT LIST NEEDED) [place]'s Restless Leg 3 tabs sublingual Q4H PRN (Reason: RESTLESS LEGS) levothyroxine 175 mcg capsule 175 mcg PO DAILYBB Rx Instructions: note larger dose; ideally take well before breakfast on empty stomach Discontinued furosemide 80 mg tablet 80 mg PO DAILY 90 Days Qty: 90 3RF Discharge Orders: Discharge Order- CHF (Routine); Ordered 08/28/23 Ordered By: David Velasco Admission Data Admit Date/Time: 08/27/23 14:02 Attending Provider: David Velasco Admit Provider: Bennie Tate Primary Care Provider: Marcelino French Other Providers: Bennie Tate; [place],Care Coding Level of Care Code 44410 INP/OBS DISCH >30 MIN Diagnoses CHF exacerbation I50.9 SOB (shortness of breath) R06.02 Elevated troponin R79.89 Hypomagnesemia E83.42 Urinary retention R33.9 Atrial fibrillation, permanent I48.21 Hypothyroidism E03.9 HTN (hypertension) I10 Diabetes mellitus E11.9
== END 2023-08-28 14:51 | disposition home health service (06) | DRG 291 ==
LOC: ED 12:51 → EDINP 12:51 → SUATTDRO 15:18 → EDINP 23:33 → 2W 08-27 00:51

== ENCOUNTER 2024-09-12 05:20 | Inpatient (IN) ==
[2024-09-12 05:57] LABS: Hematocrit (blood only) 30.1 % (42.0-52.0); Mean Corpuscular Hemoglobin 30.7 pg (25.0-34.0); Mean Corpuscular Hgb Conc 33.2 g/dL (32.0-36.0); Mean Corpuscular Volume 92.3 fL (80.0-100.0); Mean Platelet Volume 12.1 fL (9.4-12.4); Platelet Count 178 K/uL (130-400); RDW Coefficient of Variation 14.6 % (11.5-14.5); RDW Standard Deviation 49.6 fL (36.4-46.3); Red Blood Count 3.26 M/uL (4.70-6.10); White Blood Count 11.78 K/ul (4.8-10.8)
[2024-09-12 06:07] LABS: Alanine Aminotransferase 9 U/L (7-52); Albumin Globulin Ratio 1.1 (0.9-2); Albumin Level 3.7 gm/dl (3.4-5.0); Alkaline Phosphatase 97 U/L (34-104); Anion Gap 14 (3-11); Aspartate Aminotransferase 24 U/L (13-39); BUN Creatinine Ratio 29.4 (10-20); Bilirubin,Total 0.6 mg/dl (0.2-1.0); Blood Urea Nitrogen 90 mg/dl (6-23); Calcium 9.5 mg/dl (8.6-10.3); Carbon Dioxide 25 mmol/L (21-32); Chloride 95 mmol/L (98-107); Globulin 3.5 gm/dl (2.5-4.0); Glucose 168 mg/dl (70-99(Fasting)); Potassium 4.6 mmol/L (3.5-5.1); Sodium 134 mmol/L (136-145); Total Protein 7.2 gm/dl (6.0-8.3)
[2024-09-12] MEDS: DOXYCYCLINE HYCLATE 100 MG CAP PO STA (06:10)
[2024-09-12] MEDS: cefTRIAXone SODIUM 2,000 MG/50 ML BAG IV STA (06:10)
--- NOTE | 2024-09-12 06:13 | Emergency Department Note ---
Impression & Plan Multifocal pneumonia, CHF exacerbation, Acute hypoxemic respiratory failure ED Provider Note NAME: ROBEL HUERTA AGE: 88 SEX: M : 1935 ARRIVES VIA: Ambulance INFORMANT: Patient, ED PROVIDER(S): Earl Keita MD CHIEF COMPLAINT: Shortness of breath HPI: This is a 88-year-old male presenting for shortness of breath. Patient states that he has had a cough for some time now. He notes that his called EMS because he began coughing and was short of breath. She thinks there may have been blood. EMS did not witness this. I was patient has felt somewhat weak. He complains of no current chest pain or pleurisy. No significant leg swelling. ROS: See above HPI for pertinent positives & negatives. A total of 10 systems reviewed and were otherwise negative. PAST MEDICAL HISTORY: See Below PAST SURGICAL HISTORY: See Below FAMILY HISTORY: See Below SOCIAL HISTORY: See Below HOME MEDICATIONS: See Below ALLERGIES: See Below VITALS: See Below PHYSICAL EXAMINATION: General: Chronically unwell appearing Head: Normocephalic and atraumatic Eyes: Normal inspection, extraocular muscles intact Ear, nose, throat: Normal external exam Neck: Normal range of motion Respiratory: lungs clear to auscultation bilaterally Cardiovascular: Regular rate/rhythm, no murmur GI: soft, nontender, no guarding or rebound Extremities: nontender, moves all extremities Neuro: The patient awake and alert, appropriately conversive, no focal deficits, symmetric faces Skin: Warm, dry, and intact MEDICAL DECISION MAKING: This is a an 88-year-old male presenting for shortness of breath. Patient has rhonchi and otherwise not noted any fevers or chills. He did smoke but quit many years ago. -Chest x-ray as Independently interpreted by me reveals a right-sided focal opacity concerning for pneumonia as well as possible left lower lobe focal opacity. Pulm vascular congestion also noted -Patient's blood does reveal a borderline leukocytosis in addition to a OSVALDO, creatinine elevated to over 3 now. Troponin is elevated to the 40s, above his previous baseline -Patient is hypoxic requiring about 5 L in total to maintain oxygen saturation around 92%. He will require admission for his bacterial pneumonia, hypoxia, OSVALDO -Patient started on ceftriaxone and doxycycline -Patient is currently on upper respiratory panel. -Discussed care with Dr. Álvarez for admission Differential diagnosis: PE, ACS, pneumonia, hemoptysis, pulmonary hemorrhage, URI Diagnostics interpreted by me: ECG: ECG independently interpreted by me with ventricularly paced rhythm at a rate of 77 prolonged QTc, no ST segment elevations consistent with STEMI criteria Cardiac Monitoring: An order was placed for continuous cardiac monitoring. The monitor shows a rate of 73 with sinus rhythm. Past Med/Surg History Problem List (Updated 09/12/24 @ 23:08 by Earl Keita MD) Acute hypoxemic respiratory failure (Acute) CHF exacerbation (Acute) Multifocal pneumonia (Acute) COPD exacerbation Pneumonia involving right lung Acute respiratory failure with hypoxia NSVT (nonsustained ventricular tachycardia) Elevated troponin CHF exacerbation Hypomagnesemia (Chronic) Frequent PVCs Bradycardia SOB (shortness of breath) (Acute) Heart palpitations (Acute) Urinary retention Hydronephrosis BPH (benign prostatic hyperplasia) Vitamin D deficiency CKD (chronic kidney disease) stage 3, GFR 30-59 ml/min Hypocalcemia (Acute) Dementia End of life care Incontinence Wheezing Anemia Atrial fibrillation, permanent (Chronic) Hypothyroidism HLD (hyperlipidemia) (Chronic) Gout HTN (hypertension) Cognitive decline (Chronic) Diabetes mellitus (Chronic) MCC current use of anticoagulant therapy (Chronic) Anxiety Coronary artery disease (Chronic) Presence of cardiac pacemaker (Chronic) Bradyarrhythmia (Acute 01/31/14) Medical History Pacemaker battery depletion Pre-syncope (01/31/14) Chest pain CHF (congestive heart failure) Angina pectoris (01/24/14) Surgical History Hx of CABG Family History Mother Breast cancer Myocardial infarction Denies family history of Ovarian cancer Prostate cancer Colorectal cancer Social History Smoking Status: Unknown if ever smoked Tobacco Type: Declines Age Started Using Tobacco: 18; Age Quit Using Tobacco: 45; packs per day: 1; Tobacco Cessation Education Requested by Patient: No Preferred Language: Syriac Communication Ability: Effective Communication Ability Comment: hard of hearing, some forgetfulness Visual Impairment: No Limitations Hearing Ability: 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 Beliefs That Will Affect Care: None marital status: Current Living Situation: Spouse Current Living Situation Comment: current occupational status: retired Other Information That Helps Us Care for You: Yes Feels Safe at Home: Yes Safety Concerns: Feels Safe At This Time Childhood Exposure to Second-Hand Smoke: No Diet: regular caffeine: Yes (2-3 coffee daily) Dental Care, Regularly: Yes Seatbelt Use: always Sunscreen Use: No Do you think of yourself as: straight/heterosexual Gender Identity: Male Assistive Devices: Hearing Aid - Bilateral, Oxygen - Continuous and Walker Assistive Devices Comment: walker needed Allergies Allergies Allergy/AdvReac Type Severity Reaction Status Date / Time codeine Allergy Unknown CAN'T Verified 07/19/24 08:56 REMEMBER morphine Allergy Unknown CAN'T Verified 07/19/24 08:56 REMEMBER Penicillins Allergy Unknown CAN'T Verified 07/19/24 08:56 REMEMBER Home Meds Home Medications Medication Instructions Recorded Confirmed clindamycin HCl 150 mg capsule 600 mg PO DIRECTED PRN PRIOR TO 05/27/19 09/12/24 DENTAL APPOINTMENTS nitroglycerin 0.4 mg sublingual 0.4 mg sublingual Q5M PRN chest 05/27/19 09/12/24 tablet pain vit C 50 mg-E 15 unit-zinc cit 4.5 1 tab PO DAILY 07/01/21 09/12/24 mg-lutein 2.5 mg-zeaxan chew tablet ([facility]) vitamins-lipotropics tablet 1 tab PO DAILY PRN PER PT LIST 10/02/22 09/12/24 NEEDED loperamide 2 mg capsule 2 mg PO DAILY 01/15/23 09/12/24 acetaminophen 650 mg 650 mg PO HS PRN Pain 02/06/23 09/12/24 tablet,extended release Ranier's Restless Leg 3 tabs sublingual Q4H PRN RESTLESS 08/26/23 09/12/24 LEGS cilostazol 50 mg tablet 0 mg PO BID 09/12/24 09/12/24 furosemide 80 mg tablet (Lasix) 0 mg PO BID 09/12/24 09/12/24 Previous Rx's Medication Instructions Recorded Wheeled Walker #1 ea 10/10/22 omeprazole 20 mg capsule,delayed 20 mg PO DAILY #90 caps 11/11/22 release calcium carbonate 500 mg PO BID #60 tabs 05/24/23 cholecalciferol (vitamin D3) 50 50 mcg PO DAILY #90 caps 02/28/23 mcg (2,000 unit) capsule magnesium oxide 400 mg (241.3 mg 400 mg PO BID #60 tabs 08/20/23 magnesium) tablet labetalol 100 mg tablet 100 mg PO BID #180 tabs 09/16/23 tamsulosin 0.4 mg capsule 0.4 mg PO DAILY #90 caps 09/16/23 levothyroxine 200 mcg tablet 200 mcg PO DAILY #90 tabs 11/11/23 atorvastatin 20 mg tablet 20 mg PO DAILY #90 tabs 01/05/24 famotidine 40 mg tablet 40 mg PO DAILY #90 tabs 01/05/24 gemfibrozil 600 mg tablet 600 mg PO BID #180 tabs 01/05/24 apixaban 2.5 mg tablet (Eliquis) 2.5 mg PO BID #180 tabs 02/18/24 lisinopril 20 mg tablet 20 mg PO DAILY #90 tabs 04/14/24 allopurinol 100 mg tablet 200 mg (2 x 100 mg) PO DAILY #180 06/23/24 tabs baclofen 10 mg tablet 10 mg PO HS #90 tabs 06/23/24 potassium chloride 10 mEq 20 meq (2 x 10 mEq) PO BID #360 06/23/24 tablet,extended release tabs isosorbide mononitrate 60 mg 60 mg PO DAILY #90 tabs 09/03/24 tablet,extended release 24 hr Results & Data (ED) Vital Signs Vital Signs - 24 hr 09/12/24 05:10 09/12/24 05:20 09/12/24 05:22 Temperature 36.8 C Temperature Source Oral Pulse Rate 72 72 Pulse Rate [Apical] Pulse Rhythm [Apical] Pulse Strength [Apical] Respiratory Rate 22 16 Respiratory Effort / Characteristics Non-Labored Spontaneous Respiratory Depth Normal Blood Pressure 119/63 Blood Pressure [Right Arm] Blood Pressure Mean 81 Blood Pressure Mean [Right Arm] Pulse Oximetry 86 L 92 92 Oxygen Delivery Method Room Air Nasal Cannula Nasal Cannula Oxygen Flow Rate 5 Sepsis Recent Fever Within 48 Hours No Sepsis New/Unexplained Change in Mental Status N/A Sepsis Action Taken by Nursing No Action Required Oxygen Flow Rate - Titration 5 Pulse Oximetry Post Tiitration 93 09/12/24 05:24 09/12/24 05:41 09/12/24 05:59 Temperature Temperature Source Pulse Rate 81 68 Pulse Rate [Apical] Pulse Rhythm [Apical] Pulse Strength [Apical] Respiratory Rate 22 Respiratory Effort / Characteristics Moaning Short of Breath SOB on Exertion Respiratory Depth Shallow Blood Pressure Blood Pressure [Right Arm] Blood Pressure Mean Blood Pressure Mean [Right Arm] Pulse Oximetry 92 Oxygen Delivery Method Nasal Cannula Nasal Cannula Oxygen Flow Rate 5 5 Sepsis Recent Fever Within 48 Hours Sepsis New/Unexplained Change in Mental Status Sepsis Action Taken by Nursing Oxygen Flow Rate - Titration Pulse Oximetry Post Tiitration 09/12/24 06:47 Temperature Temperature Source Pulse Rate Pulse Rate [Apical] 70 Pulse Rhythm [Apical] Regular Pulse Strength [Apical] Normal Respiratory Rate 18 Respiratory Effort / Characteristics Respiratory Depth Blood Pressure Blood Pressure [Right Arm] 116/82 Blood Pressure Mean Blood Pressure Mean [Right Arm] 93 Pulse Oximetry 94 Oxygen Delivery Method Nasal Cannula Oxygen Flow Rate 5 Sepsis Recent Fever Within 48 Hours Sepsis New/Unexplained Change in Mental Status Sepsis Action Taken by Nursing Oxygen Flow Rate - Titration Pulse Oximetry Post Tiitration Laboratory Data 09/12/24 05:30 09/12/24 05:30 Lab Results 09/12/24 Range/Units 05:30 WBC 11.78 H (4.8-10.8) K/ul RBC 3.26 L (4.70-6.10) M/uL Hgb 10.0 L (14.0-18.0) g/dl Hct 30.1 L (42.0-52.0) % MCV 92.3 (80.0-100.0) fL MCH 30.7 (25.0-34.0) pg MCHC 33.2 (32.0-36.0) g/dL RDW Std Deviation 49.6 H (36.4-46.3) fL RDW Coeff of Gerri 14.6 H (11.5-14.5) % Plt Count 178 (130-400) K/uL MPV 12.1 (9.4-12.4) fL Immature Gran % (Auto) 1.1 % Neut % (Auto) 90.3 % Lymph % (Auto) 3.8 % Haralson % (Auto) 4.2 % Eos % (Auto) 0.2 % Baso % (Auto) 0.4 % Neut # (Auto) 10.64 H (1.40-6.50) K/uL Lymph # (Auto) 0.45 L (1.20-3.40) K/uL Haralson # (Auto) 0.49 (0.11-0.59) K/uL Eos # (Auto) 0.02 (0.00-0.50) K/uL Baso # (Auto) 0.05 (0.00-0.20) K/uL Immature Gran # (Auto) 0.13 (0.01-0.20) K/uL Polychromasia 1+ Sodium 134 L (136-145) mmol/L Potassium 4.6 (3.5-5.1) mmol/L Chloride 95 L (98-107) mmol/L Carbon Dioxide 25 (21-32) mmol/L Anion Gap 14 H (3-11) BUN 90 H (6-23) mg/dl Creatinine 3.06 H (0.6-1.4) mg/dl Est Cr Clr Drug Dosing Not Reportable eGFR 19.03 BUN/Creatinine Ratio 29.4 H (10-20) Glucose 168 H (70-99(Fasting)) mg/dl Calcium 9.5 (8.6-10.3) mg/dl Total Bilirubin 0.6 (0.2-1.0) mg/dl AST 24 (13-39) U/L ALT 9 (7-52) U/L Alkaline Phosphatase 97 (34-104) U/L Troponin I High Sens 43.5 H (0-20) pg/ml B-Natriuretic Peptide 385 H (0-100) pg/ml Total Protein 7.2 (6.0-8.3) gm/dl Albumin 3.7 (3.4-5.0) gm/dl Globulin 3.5 (2.5-4.0) gm/dl Albumin/Globulin Ratio 1.1 (0.9-2) Adenovirus (PCR) Not Detected (NotDetected) B. pertussis DNA (PCR) Not Detected (NotDetected) B.parapertussis DNA PCR Not Detected (NotDetected) C. pneumoniae DNA (PCR) Not Detected (NotDetected) Coronavirus OC43 (PCR) Not Detected (NotDetected) Coronavirus HKU1 (PCR) Not Detected (NotDetected) Coronavirus 229E (PCR) Not Detected (NotDetected) SARS-CoV-2 (PCR) Not Detected (NotDetected) Coronavirus NL63 (PCR) Not Detected (NotDetected) Human Metapneumovir PCR Not Detected (NotDetected) Influenza Type A (PCR) Not Detected (NotDetected) Influenza Type B (PCR) Not Detected (NotDetected) M. pneumoniae (PCR) Not Detected (NotDetected) Parainfluenza 1 (PCR) Not Detected (NotDetected) Parainfluenza 2 (PCR) Not Detected (NotDetected) Parainfluenza 3 (PCR) Not Detected (NotDetected) Parainfluenza 4 (PCR) Not Detected (NotDetected) RSV (PCR) Not Detected (NotDetected) Entero/Rhino (PCR) Not Detected (NotDetected) Administered Medications Albuterol (Albut/Ipratrop 3mg/0.5mg Neb 3 Ml Vial) 3 ml NEB QIDR [facility]; Protocol Stop: 10/12/24 06:59 Last Admin: 09/12/24 20:28 Dose: 3 ml Documented By: Admin: 09/12/24 15:12 Dose: 3 ml Documented By: Admin: 09/12/24 09:31 Dose: 3 ml Documented By: Admin: 09/12/24 07:14 Dose: 3 ml Documented By: YESSENIA Allopurinol (Allopurinol 100 Mg Tab) 200 mg PO DAILY [facility] Stop: 10/12/24 09:11 Last Admin: 09/12/24 10:40 Dose: 200 mg Documented By: PARVEZ Apixaban (Apixaban 2.5 Mg Tab) 2.5 mg PO BID [facility] Stop: 10/12/24 09:11 Last Admin: 09/12/24 20:18 Dose: 2.5 mg Documented By: Admin: 09/12/24 10:40 Dose: 2.5 mg Documented By: PARVEZ Atorvastatin Calcium (Atorvastatin 20 Mg Tab) 20 mg PO DAILY [facility] Stop: 10/12/24 09:11 Last Admin: 09/12/24 10:41 Dose: 20 mg Documented By: PARVEZ Calcium Carbonate (Calcium Carbonate 500 Mg Chewable Tab) 500 mg PO BID [facility] Stop: 10/12/24 09:29 Last Admin: 09/12/24 20:18 Dose: 500 mg Documented By: Admin: 09/12/24 10:41 Dose: 500 mg Documented By: PARVEZ Cilostazol (Cilostazol 100 Mg Tab) 50 mg PO BID [facility] Stop: 10/12/24 09:44 Last Admin: 09/12/24 20:19 Dose: 50 mg Documented By: Admin: 09/12/24 10:42 Dose: 50 mg Documented By: PARVEZ Famotidine (Famotidine 40 Mg Tablet) 40 mg PO DAILY [facility] Stop: 10/12/24 09:11 Last Admin: 09/12/24 10:41 Dose: 40 mg Documented By: PARVEZ Guaifenesin (Guaifenesin 600 Mg Tabcr) 1,200 mg PO Q12 [facility] Stop: 10/12/24 08:59 Last Admin: 09/12/24 20:17 Dose: 1,200 mg Documented By: Admin: 09/12/24 09:51 Dose: 1,200 mg Documented By: PARVEZ Doxycycline Hyclate 100 mg/ (Dextrose) 100 mls @ 50 mls/hr IV Q12H [facility] Stop: 09/17/24 17:59 Last Infusion: 09/12/24 21:29 Dose: Infused Documented By: Admin: 09/12/24 19:38 Dose: 50 mls/hr Documented By: ROBERTO Cefepime HCl (Maxipime 2000mg) 1,000 mg in 10 mls @ 5 mls/min IV Q12H [facility] Stop: 09/17/24 20:59 Last Admin: 09/12/24 21:29 Dose: 5 mls/min Documented By: ROBERTO Methylprednisolone 40 mg/ (Syringe) 0.64 mls @ 1.5 mls/min IV Q8H [facility] Stop: 10/12/24 13:59 Last Admin: 09/12/24 22:35 Dose: 1.5 mls/min Documented By: Admin: 09/12/24 13:43 Dose: 1.5 mls/min Documented By: PARVEZ Insulin Aspart (Insulin Aspart Per Unit Charge) 0 units SC ACHS [facility] Stop: 10/12/24 07:29 Last Admin: 09/12/24 21:27 Dose: 1 units Documented By: ROBERTO Co-signed By: ANNE-MARIE Admin: 09/12/24 17:30 Dose: 4 units Documented By: PARVEZ Co-signed By: LILIA Admin: 09/12/24 13:38 Dose: Not Given Documented By: Admin: 09/12/24 09:44 Dose: Not Given Documented By: PARVEZ Isosorbide Mononitrate (Isosorbide Haralson Extended Rel 60 Mg Tabcr) 60 mg PO DAILY [facility] Stop: 10/12/24 09:11 Last Admin: 09/12/24 10:41 Dose: 60 mg Documented By: PARVEZ Labetalol HCl (Labetalol Hcl 100 Mg Tab) 100 mg PO BID [facility] Stop: 10/12/24 09:11 Last Admin: 09/12/24 20:20 Dose: 100 mg Documented By: Admin: 09/12/24 10:41 Dose: 100 mg Documented By: PARVEZ Magnesium Oxide (Magnesium Oxide 400 Mg Tab) 400 mg PO BID [facility] Stop: 10/12/24 09:11 Last Admin: 09/12/24 20:20 Dose: 400 mg Documented By: Admin: 09/12/24 10:41 Dose: 400 mg Documented By: PARVEZ Multivitamins/Minerals (Cerovite Adv Formula Tab) 1 tab PO DAILY [facility] Stop: 10/12/24 09:29 Last Admin: 09/12/24 10:41 Dose: 1 tab Documented By: PARVEZ Pantoprazole Sodium (Pantoprazole 40 Mg Tab) 40 mg PO DAILY [facility] Stop: 10/12/24 09:29 Last Admin: 09/12/24 10:41 Dose: 40 mg Documented By: PARVEZ Tamsulosin HCl (Tamsulosin Hcl 0.4 Mg Cap) 0.4 mg PO DAILY [facility] Stop: 10/12/24 09:11 Last Admin: 09/12/24 10:41 Dose: 0.4 mg Documented By: PARVEZ Discontinued Medications Doxycycline Hyclate (Doxycycline Hyclate 100 Mg Cap) 100 mg PO NOW STA Stop: 09/12/24 06:02 Last Admin: 09/12/24 06:10 Dose: 100 mg Documented By: MARCO A Ceftriaxone Sodium (Rocephin) 2,000 mg in 50 mls @ 100 mls/hr IV NOW STA Stop: 09/12/24 06:30 Last Infusion: 09/12/24 06:40 Dose: Infused Documented By: MARCO A Admin: 09/12/24 06:10 Dose: 100 mls/hr Documented By: MARCO A Vancomycin HCl 1,500 mg/ (Sodium Chloride) 530 mls @ 200 mls/hr IV NOW ONE Stop: 09/12/24 09:33 Last Infusion: 09/12/24 10:54 Dose: Infused Documented By: Admin: 09/12/24 07:25 Dose: 200 mls/hr Documented By: YESSENIA Cefepime HCl (Maxipime 2000mg) 2,000 mg in 20 mls @ 5 mls/min IV ONE ONE; Protocol Stop: 09/12/24 09:03 Last Admin: 09/12/24 09:52 Dose: 5 mls/min Documented By: PARVEZ Methylprednisolone (Methylprednisolone 125 Mg/2 Ml Vial) 125 mg IV NOW STA Stop: 09/12/24 06:56 Last Admin: 09/12/24 07:10 Dose: 125 mg Documented By: YESSENIA Discharge Plan Visit Data Chief Complaint: Shortness of Breath/Dyspnea Stated Complaint: Breathing Difficulty ED Provider: Earl Keita Discharge Problem: Multifocal pneumonia, CHF exacerbation, Acute hypoxemic respiratory failure Patient Disposition: Admitted As Inpatient Discharge Instructions Interventions: ED Discharge Assessment Last Done: 09/12/24 07:59
[2024-09-12 06:14] LABS: Troponin I High Sensitivity 43.5 pg/ml (0-20)
[2024-09-12 06:32] LABS: Basophils # (auto) 0.05 K/uL (0.00-0.20); Basophils % (auto) 0.4 %; Eosinophils # (auto) 0.02 K/uL (0.00-0.50); Eosinophils % (auto) 0.2 %; Immature Granulocytes # (auto) 0.13 K/uL (0.01-0.20); Immature Granulocytes % (auto) 1.1 %; Lymphocytes # (auto) 0.45 K/uL (1.20-3.40); Lymphocytes % (auto) 3.8 %; Monocytes # (auto) 0.49 K/uL (0.11-0.59); Monocytes % (auto) 4.2 %; Neutrophils # (auto) 10.64 K/uL (1.40-6.50); Neutrophils % (auto) 90.3 %; Polychromasia 1+
[2024-09-12 06:35] LABS: Appearance Urine Cloudy (Clear); Bacteria Urine Automated 4+ (None Seen); Bilirubin Urine Negative (Negative); Blood Urine 1+ (Negative); Cast Urine Automated >20 /lpf (0-2); Color Urine Yellow; Epithelial Cell Urine Auto 0-2 /hpf (0-2); Glucose Urine UA Negative (Negative); Hyaline Casts Urine Present /lpf (None Presnt); Ketones Urine Negative (Negative); Leukocyte Esterase Urine 2+ (Negative); Nitrite Urine Negative (Negative); Protein Urine 1+ (Negative); RBC Urine Automated >20 /hpf (0-2); Specific Gravity Urine 1.015 (1.000-1.030); Urobilinogen Urine Negative (Negative); WBC Urine Automated 21-50 /hpf (0-5); pH Urine >= 9.0 (4.5-7.5)
[2024-09-12 06:38] LABS: Adenovirus PCR Not Detected (NotDetected); Bordetella parapertussis PCR Not Detected (NotDetected); Bordetella pertussis PCR Not Detected (NotDetected); Chlamydia pneumoniae PCR Not Detected (NotDetected); Coronavirus 229E PCR Not Detected (NotDetected); Coronavirus CoV-2 (COVID19)PCR Not Detected (NotDetected); Coronavirus HKU1 PCR Not Detected (NotDetected); Coronavirus NL63 PCR Not Detected (NotDetected); Coronavirus OC43PCR Not Detected (NotDetected); Human Metapneumovirus PCR Not Detected (NotDetected); Influenza A PCR Not Detected (NotDetected); Influenza B PCR Not Detected (NotDetected); Mycoplasma pneumoniae PCR Not Detected (NotDetected); Parainfluenza Virus 1 PCR Not Detected (NotDetected); Parainfluenza Virus 2 PCR Not Detected (NotDetected); Parainfluenza Virus 3 PCR Not Detected (NotDetected); Parainfluenza Virus 4 PCR Not Detected (NotDetected); Respiratory Syncytial VirusPCR Not Detected (NotDetected); Rhinovirus/Enterovirus PCR Not Detected (NotDetected)
--- NOTE | 2024-09-12 06:47 | XRay Report ---
EXAM: XR chest 1V portable CLINICAL HISTORY: SOB KFK TECHNIQUE: An X-ray image of the chest is obtained in 1 AP projection. COMPARISON: 08/28/2023 FINDINGS: Pulmonary Parenchyma: Haziness is seen in the right middle and lower zones. Prominent broncho-vascular markings are seen bilaterally. No evidence of pleural effusion or pleural thickening. Heart and Mediastinum: Heart size and shape are normal. No mediastinal widening or masses. No hilar or mediastinal lymphadenopathy. Both velia appear prominent. Midline sternotomy sutures with surgical amy were seen status post-intervention. A cardiac pacemaker device was seen in place. Bony Thorax: The bony thorax appears intact without fractures or deformities. Soft Tissues: Soft tissues overlying the chest wall are unremarkable. IMPRESSION: 1. Haziness is seen in the right middle and lower zones, Would recommend clinical and lab correlation and follow-up chest x-ray to rule out the possibility of pulmonary infection. 2. The rest of the findings appear interval stable. Electronically signed by Basilio Garcia 09-12-2024 06:47 AM
[2024-09-12] MEDS ORDERED: VANCOMYCIN CONSULT ACTIVE PRN (06:55)
[2024-09-12] MEDS: methylPREDNISolone 125 MG/2 ML VIAL IV STA (07:10)
[2024-09-12] MEDS ORDERED: GLUCOSE 10 TAB/TUBE PO PRN (07:12)
[2024-09-12] MEDS ORDERED: GLUCOSE 40% GEL 15 GM TUBE PO PRN (07:12)
[2024-09-12] MEDS ORDERED: GLUCAGON FOR INJ 1 MG VIAL SQ PRN (07:12)
[2024-09-12] MEDS ORDERED: DEXTROSE 50% 50 ML SYRINGE IV PRN (07:12)
[2024-09-12] MEDS ORDERED: CARBOHYDRATES FOR HYPOGLYCEMIA PO PRN (07:12)
[2024-09-12] MEDS: ALBUT/IPRATROP 3MG/0.5MG NEB 3 ML VIAL NEB SCH (07:14)
--- NOTE | 2024-09-12 07:14 | History & Physical Report ---
Date of Service September 12, 2024 Assessment & Plan (1) Acute respiratory failure with hypoxia: (2) Pneumonia involving right lung: (3) COPD exacerbation: (4) Atrial fibrillation, permanent: (5) Diabetes mellitus: Plan The patient is an 88-year-old male with past medical history including CAD, presence of cardiac pacemaker, anxiety, long-term use of anticoagulant, cognitive decline, diabetes mellitus, permanent atrial fibrillation, CKD stage III, BPH with LUTS. He presents to the emergency department at the referral from his , due to concerns regarding worsening shortness of breath, productive cough, and decreased ability to sleep at night due to shortness of breath when laying backwards. Pneumonia involving right middle and right lower lobe- BioFire testing negative MRSA swab Give methylprednisolone 125 mg IV now, and then 40 mg IV every 8 hours Placed on vancomycin IV per pharmacokinetic monitoring Cefepime 2 g IV every 12 hours Doxycycline 100 mg IV 12 hours Mucinex 1200 mg p.o. every 12 hours Duonebs every 4 hours while awake and every 2 hours when necessary. Permanent atrial fibrillation/hypertension/history of CHF/PAD- Continue apixaban, atorvastatin, Pletal, isosorbide mononitrate, labetalol Hold calcium chloride, furosemide, lisinopril BPH with LUTS- Continue tamsulosin Hypothyroidism- Continue levothyroxine Hyperglycemia- Glucose 168 on admission No diagnosis of diabetes or medications to treat as such Place on Accu-Cheks with NovoLog SSI History of Present Illness Chief Complaint: The patient presents to the emergency department with several days of worsening shortness of breath, PND, cough intermittently productive of mucus, and is presented to the ED this evening due to his 's concerns regarding his breathing Primary Care Provider: Marcelino French DO Patient is an 88-year-old male with past medical history including, atrial fibrillation, NSVT, frequent PVCs, BPH, gout, hypertension, cognitive decline, diabetes mellitus, long-term use of anticoagulation, CAD, presence of cardiac pacemaker and anxiety. Emergency department at the behest of his due to concerns regarding worsening shortness of breath, and inability to sleep at nighttime due to dyspnea. [place] any recent travels or sick exposures. Respiratory BioFire testing in the ED is negative. Chest x-ray for bacterial pneumonia right lower right lower lobe Allergies Allergy/AdvReac Type Severity Reaction Status Date / Time codeine Allergy Unknown CAN'T Verified 07/19/24 08:56 REMEMBER morphine Allergy Unknown CAN'T Verified 07/19/24 08:56 REMEMBER Penicillins Allergy Unknown CAN'T Verified 07/19/24 08:56 REMEMBER Home Medications Medication Instructions Recorded Confirmed Type clindamycin HCl 150 mg capsule 600 mg PO DIRECTED PRN PRIOR TO 05/27/19 07/19/24 History DENTAL APPOINTMENTS nitroglycerin 0.4 mg sublingual 0.4 mg sublingual Q5M PRN chest 05/27/19 07/19/24 History tablet pain vit C 50 mg-E 15 unit-zinc cit 4.5 1 tab PO DAILY 07/01/21 07/19/24 History mg-lutein 2.5 mg-zeaxan chew tablet (Problemsolutions24) vitamins-lipotropics tablet 1 tab PO DAILY PRN PER PT LIST 10/02/22 07/19/24 History NEEDED Wheeled Walker #1 ea 10/10/22 07/19/24 Rx omeprazole 20 mg capsule,delayed 20 mg PO DAILY #90 caps 11/11/22 07/19/24 Rx release loperamide 2 mg capsule 2 mg PO DAILY 01/15/23 07/19/24 History calcium carbonate 500 mg PO BID #60 tabs 02/05/23 07/19/24 Rx acetaminophen 650 mg 650 mg PO HS PRN Pain 02/06/23 07/19/24 History tablet,extended release cholecalciferol (vitamin D3) 50 50 mcg PO DAILY #90 caps 02/28/23 07/19/24 Rx mcg (2,000 unit) capsule cilostazol 50 mg tablet 50 mg PO BID #180 tabs 07/03/23 07/19/24 Rx magnesium oxide 400 mg (241.3 mg 400 mg PO BID #60 tabs 08/20/23 07/19/24 Rx magnesium) tablet Leonor's Restless Leg 3 tabs sublingual Q4H PRN RESTLESS 08/26/23 07/19/24 History LEGS labetalol 100 mg tablet 100 mg PO BID #180 tabs 09/16/23 07/19/24 Rx tamsulosin 0.4 mg capsule 0.4 mg PO DAILY #90 caps 09/16/23 07/19/24 Rx furosemide 80 mg tablet (Lasix) 80 mg PO BID 90 days #180 tabs 10/29/23 07/19/24 Rx levothyroxine 200 mcg capsule 200 mcg PO DAILY #90 caps 10/29/23 07/19/24 Rx levothyroxine 200 mcg tablet 200 mcg PO DAILY #90 tabs 11/11/23 07/19/24 Rx atorvastatin 20 mg tablet 20 mg PO DAILY #90 tabs 01/05/24 07/19/24 Rx famotidine 40 mg tablet 40 mg PO DAILY #90 tabs 01/05/24 07/19/24 Rx gemfibrozil 600 mg tablet 600 mg PO BID #180 tabs 01/05/24 07/19/24 Rx apixaban 2.5 mg tablet (Eliquis) 2.5 mg PO BID #180 tabs 02/18/24 07/19/24 Rx lisinopril 20 mg tablet 20 mg PO DAILY #90 tabs 04/14/24 07/19/24 Rx allopurinol 100 mg tablet 200 mg (2 x 100 mg) PO DAILY #180 06/23/24 07/19/24 Rx tabs baclofen 10 mg tablet 10 mg PO HS #90 tabs 06/23/24 07/19/24 Rx potassium chloride 10 mEq 20 meq (2 x 10 mEq) PO BID #360 06/23/24 07/19/24 Rx tablet,extended release tabs isosorbide mononitrate 60 mg 60 mg PO DAILY #90 tabs 09/03/24 Rx tablet,extended release 24 hr Past Med/Surg History Problem List (Updated 09/12/24 @ 07:08 by George Burnette MD) COPD exacerbation Pneumonia involving right lung Acute respiratory failure with hypoxia NSVT (nonsustained ventricular tachycardia) Elevated troponin CHF exacerbation Hypomagnesemia (Chronic) Frequent PVCs Bradycardia SOB (shortness of breath) (Acute) Heart palpitations (Acute) Urinary retention Hydronephrosis BPH (benign prostatic hyperplasia) Vitamin D deficiency CKD (chronic kidney disease) stage 3, GFR 30-59 ml/min Hypocalcemia (Acute) Dementia End of life care Incontinence Wheezing Anemia Atrial fibrillation, permanent (Chronic) Hypothyroidism HLD (hyperlipidemia) (Chronic) Gout HTN (hypertension) Cognitive decline (Chronic) Diabetes mellitus (Chronic) 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) Anxiety Coronary artery disease (Chronic) Presence of cardiac pacemaker (Chronic) Bradyarrhythmia (Acute 01/31/14) Medical History Pacemaker battery depletion Pre-syncope (01/31/14) Chest pain CHF (congestive heart failure) Angina pectoris (01/24/14) Surgical History Hx of CABG Family History Mother Breast cancer Myocardial infarction Denies family history of Ovarian cancer Prostate cancer Colorectal cancer Social History Smoking Status: Former smoker Tobacco Type: Cigarettes Age Started Using Tobacco: 18; Age Quit Using Tobacco: 45; packs per day: 1; Second Hand Exposure: No; Do You Dip or Chew Tobacco: No; Hx Alcohol Use: No Hx Substance Use: No Preferred Language: Syriac Communication Ability: Effective Communication Ability Comment: hard of hearing, some forgetfulness Visual Impairment: No Limitations Hearing Ability: Use of Hearing Aid Medical Unit Secretary Required: No Beliefs That Will Affect Care: None marital status: Current Living Situation: Spouse current occupational status: retired Feels Safe at Home: Yes Childhood Exposure to Second-Hand Smoke: No Diet: regular caffeine: Yes (2-3 coffee daily) Dental Care, Regularly: Yes Seatbelt Use: always Sunscreen Use: No Do you think of yourself as: straight/heterosexual Gender Identity: Male Assistive Devices: Cane, Walker and Wheelchair Review of Systems Review of Systems: The patient denies chest pain, palpitations, lower extremity swelling, sore throat, fevers, chills, sweats, nausea, vomiting, diarrhea , constipation, abdominal pain, pelvic pain, blood in urine or stool, dysuria, urinary frequency or urgency, lightheadedness, dizziness, headache, memory loss, loss of consciousness, rash, abnormal bruising or bleeding, focal weakness, numbness or tingling in arms or legs, generalized arthralgias or myalgias, back or neck pain, or night sweats. The review of systems is otherwise negative other than for that already noted above, and at least 10 systems have been reviewed. Physical Exam Physical Exam: The patient is awake, alert and oriented 3, well developed and well nourished, normocephalic and atraumatic, lying in bed and in mild respiratory acute distress. HEENT--PERRL, EOMI, mucous membranes and oropharynx mildly hide patient dry. Neck--supple. No JVD. No bruits. Thyroid normal, trachea midline, no adenopathy. Heart--normal S1 and S2. No murmurs, rubs or gallops. Lungs--coarse breath sounds bilaterally right greater than left. Mild respiratory distress, no accessory muscle use. Abdomen--normal bowel sounds and soft. Nontender. Nondistended, no hernias or masses, no organomegaly. Extremities--no cyanosis or clubbing. No edema. There are good distal pulses b/l. Dermatologic--normal skin turgor, normal color, no abnormal lymph nodes, no rash. Neurologic--cranial nerves II through XII grossly intact. Rheumatologic--normal range of motion. Psychiatric--normal affect. Results & Data Results & Data Vital Signs (Past 12 Hours) Vital Signs Temp Pulse Pulse Resp BP BP Pulse Ox 09/12/24 06:47 70 18 116/82 94 09/12/24 05:59 09/12/24 05:41 68 22 92 09/12/24 05:24 81 09/12/24 05:22 36.8 C 72 16 119/63 92 09/12/24 05:20 72 22 92 09/12/24 05:10 86 L O2 Del Method O2 Flow Rate 09/12/24 06:47 Nasal Cannula 5 09/12/24 05:59 Nasal Cannula 5 09/12/24 05:41 Nasal Cannula 5 09/12/24 05:24 09/12/24 05:22 Nasal Cannula 5 09/12/24 05:20 Nasal Cannula 09/12/24 05:10 Room Air Laboratory Results Laboratory Results WBC 11.78 K/ul (4.8-10.8) H 09/12/24 05:30 RBC 3.26 M/uL (4.70-6.10) L 09/12/24 05:30 Hgb 10.0 g/dl (14.0-18.0) L 09/12/24 05:30 Hct 30.1 % (42.0-52.0) L 09/12/24 05:30 MCV 92.3 fL (80.0-100.0) 09/12/24 05:30 MCH 30.7 pg (25.0-34.0) 09/12/24 05:30 MCHC 33.2 g/dL (32.0-36.0) 09/12/24 05:30 RDW Std Deviation 49.6 fL (36.4-46.3) H 09/12/24 05:30 RDW Coeff of Gerri 14.6 % (11.5-14.5) H 09/12/24 05:30 Plt Count 178 K/uL (130-400) 09/12/24 05:30 MPV 12.1 fL (9.4-12.4) 09/12/24 05:30 Immature Gran % (Auto) 1.1 % 09/12/24 05:30 Neut % (Auto) 90.3 % 09/12/24 05:30 Lymph % (Auto) 3.8 % 09/12/24 05:30 [place] % (Auto) 4.2 % 09/12/24 05:30 Eos % (Auto) 0.2 % 09/12/24 05:30 Baso % (Auto) 0.4 % 09/12/24 05:30 Neut # (Auto) 10.64 K/uL (1.40-6.50) H 09/12/24 05:30 Lymph # (Auto) 0.45 K/uL (1.20-3.40) L 09/12/24 05:30 [place] # (Auto) 0.49 K/uL (0.11-0.59) 09/12/24 05:30 Eos # (Auto) 0.02 K/uL (0.00-0.50) 09/12/24 05:30 Baso # (Auto) 0.05 K/uL (0.00-0.20) 09/12/24 05:30 Immature Gran # (Auto) 0.13 K/uL (0.01-0.20) 09/12/24 05:30 Polychromasia 1+ 09/12/24 05:30 Sodium 134 mmol/L (136-145) L 09/12/24 05:30 Potassium 4.6 mmol/L (3.5-5.1) 09/12/24 05:30 Chloride 95 mmol/L (98-107) L 09/12/24 05:30 Carbon Dioxide 25 mmol/L (21-32) 09/12/24 05:30 Anion Gap 14 (3-11) H 09/12/24 05:30 BUN 90 mg/dl (6-23) H 09/12/24 05:30 Creatinine 3.06 mg/dl (0.6-1.4) H 09/12/24 05:30 Est Cr Clr Drug Dosing Not Reportable 09/12/24 05:30 eGFR 19.03 09/12/24 05:30 BUN/Creatinine Ratio 29.4 (10-20) H 09/12/24 05:30 Glucose 168 mg/dl (70-99(Fasting)) H 09/12/24 05:30 Calcium 9.5 mg/dl (8.6-10.3) 09/12/24 05:30 Total Bilirubin 0.6 mg/dl (0.2-1.0) 09/12/24 05:30 AST 24 U/L (13-39) 09/12/24 05:30 ALT 9 U/L (7-52) 09/12/24 05:30 Alkaline Phosphatase 97 U/L (34-104) 09/12/24 05:30 Troponin I High Sens 43.5 pg/ml (0-20) H 09/12/24 05:30 Total Protein 7.2 gm/dl (6.0-8.3) 09/12/24 05:30 Albumin 3.7 gm/dl (3.4-5.0) 09/12/24 05:30 Globulin 3.5 gm/dl (2.5-4.0) 09/12/24 05:30 Albumin/Globulin Ratio 1.1 (0.9-2) 09/12/24 05:30 Urine Color Yellow 09/12/24 Unknown Urine Appearance Cloudy (Clear) A 09/12/24 Unknown Urine pH >= 9.0 (4.5-7.5) H 09/12/24 Unknown Ur Specific [place] 1.015 (1.000-1.030) 09/12/24 Unknown Urine Protein 1+ (Negative) H 09/12/24 Unknown Urine Glucose (UA) Negative (Negative) 09/12/24 Unknown Urine Ketones Negative (Negative) 09/12/24 Unknown Urine Blood 1+ (Negative) H 09/12/24 Unknown Urine Nitrite Negative (Negative) 09/12/24 Unknown Urine Bilirubin Negative (Negative) 09/12/24 Unknown Urine Urobilinogen Negative (Negative) 09/12/24 Unknown Ur Leukocyte Esterase 2+ (Negative) H 09/12/24 Unknown Urine WBC (Auto) 21-50 /hpf (0-5) H 09/12/24 Unknown Urine RBC (Auto) >20 /hpf (0-2) H 09/12/24 Unknown U Hyaline Cast (Auto) >20 /lpf (0-2) H 09/12/24 Unknown U Epithel Cells (Auto) 0-2 /hpf (0-2) 09/12/24 Unknown Urine Bacteria (Auto) 4+ (None Seen) H 09/12/24 Unknown Hyaline Casts Present /lpf (None Presnt) A 09/12/24 Unknown Adenovirus (PCR) Not Detected (NotDetected) 09/12/24 05:30 B. pertussis DNA (PCR) Not Detected (NotDetected) 09/12/24 05:30 B.parapertussis DNA PCR Not Detected (NotDetected) 09/12/24 05:30 C. pneumoniae DNA (PCR) Not Detected (NotDetected) 09/12/24 05:30 Coronavirus OC43 (PCR) Not Detected (NotDetected) 09/12/24 05:30 Coronavirus HKU1 (PCR) Not Detected (NotDetected) 09/12/24 05:30 Coronavirus 229E (PCR) Not Detected (NotDetected) 09/12/24 05:30 SARS-CoV-2 (PCR) Not Detected (NotDetected) 09/12/24 05:30 Coronavirus NL63 (PCR) Not Detected (NotDetected) 09/12/24 05:30 Human Metapneumovir PCR Not Detected (NotDetected) 09/12/24 05:30 Influenza Type A (PCR) Not Detected (NotDetected) 09/12/24 05:30 Influenza Type B (PCR) Not Detected (NotDetected) 09/12/24 05:30 M. pneumoniae (PCR) Not Detected (NotDetected) 09/12/24 05:30 Parainfluenza 1 (PCR) Not Detected (NotDetected) 09/12/24 05:30 Parainfluenza 2 (PCR) Not Detected (NotDetected) 09/12/24 05:30 Parainfluenza 3 (PCR) Not Detected (NotDetected) 09/12/24 05:30 Parainfluenza 4 (PCR) Not Detected (NotDetected) 09/12/24 05:30 RSV (PCR) Not Detected (NotDetected) 09/12/24 05:30 Entero/Rhino (PCR) Not Detected (NotDetected) 09/12/24 05:30 Impressions Chest X-Ray 09/12/24 05:22 EXAM: XR chest 1V portable CLINICAL HISTORY: SOB KFK TECHNIQUE: An X-ray image of the chest is obtained in 1 AP projection. COMPARISON: 08/28/2023 FINDINGS: Pulmonary Parenchyma: Haziness is seen in the right middle and lower zones. Prominent broncho-vascular markings are seen bilaterally. No evidence of pleural effusion or pleural thickening. Heart and Mediastinum: Heart size and shape are normal. No mediastinal widening or masses. No hilar or mediastinal lymphadenopathy. Both velia appear prominent. Midline sternotomy sutures with surgical amy were seen status post-intervention. A cardiac pacemaker device was seen in place. Bony Thorax: The bony thorax appears intact without fractures or deformities. Soft Tissues: Soft tissues overlying the chest wall are unremarkable. IMPRESSION: 1. Haziness is seen in the right middle and lower zones, Would recommend clinical and lab correlation and follow-up chest x-ray to rule out the possibility of pulmonary infection. 2. The rest of the findings appear interval stable. Electronically signed by Basilio Garcia 09-12-2024 06:47 AM Code Status & VTE Plan Code Status DNR/DNI VTE Prophylaxis Plan VTE Prophylaxis will be ordered: Yes PG Care Time/CCT Total # of Minutes Spent Total Time Spent with Patient: Total time spent is greater than 50% in coordination of care (as documented) at patient's floor/unit and/or counseling patient: Coding Level of Care Code 35448 INT INP/OBS CARE 3/75MIN Diagnoses Acute respiratory failure with hypoxia J96.01 Pneumonia involving right lung J18.9 COPD exacerbation J44.1 Atrial fibrillation, permanent I48.21 Diabetes mellitus E11.9
[2024-09-12] MEDS: VANCOMYCIN HCL 1,500 MG in SODIUM CHLORIDE 0.9% 500 ML IV ONE (07:25)
[2024-09-12] MEDS ORDERED: ONDANSETRON INJ 2 MG/ML 2 ML VIAL IV PRN (09:12)
[2024-09-12] MEDS ORDERED: NITROGLYCERIN SL 0.4 MG/TAB TAB SL PRN (09:12)
[2024-09-12] MEDS ORDERED: gemfibroziL 600 MG TAB PO SCH (09:12)
[2024-09-12] MEDS: INSULIN ASPART PER UNIT CHARGE SC SCH (09:44)
[2024-09-12] MEDS: guaiFENesin 600 MG TABCR PO SCH (09:51)
[2024-09-12] MEDS: CEFEPIME 2000MG 2,000 MG/20 ML SYR IV ONE (09:52)
--- NOTE | 2024-09-12 10:19 | Electrocardiogram Report ---
Test Reason : Blood Pressure : */* mmHG Vent. Rate : 77 BPM Atrial Rate : 64 BPM P-R Int : * ms QRS Dur : 190 ms QT Int : 458 ms P-R-T Axes : * -33 141 degrees QTcB Int : 518 ms Ventricular-paced rhythm Abnormal ECG When compared with ECG of 26-Aug-2023 12:56, No significant change was found Confirmed by Steph Hancock ([employer]) on 09/12/2024 10:18:48 AM Referred By: REFERRED SELF Confirmed By: Steph Hancock
[2024-09-12] MEDS: allopurinoL 100 MG TAB PO SCH (10:40)
[2024-09-12] MEDS: APIXABAN 2.5 MG TAB PO SCH (10:40)
[2024-09-12] MEDS: MAGNESIUM OXIDE 400 MG TAB PO SCH (10:41)
[2024-09-12] MEDS: ATORVASTATIN 20 MG TAB PO SCH (10:41)
[2024-09-12] MEDS: CEROVITE ADV FORMULA TAB PO SCH (10:41)
[2024-09-12] MEDS: CALCIUM CARBONATE 500 MG CHEWABLE TAB PO SCH (10:41)
[2024-09-12] MEDS: FAMOTIDINE 40 MG TABLET PO SCH (10:41)
[2024-09-12] MEDS: PANTOprazole 40 MG TAB PO SCH (10:41)
[2024-09-12] MEDS: TAMSULOSIN HCL 0.4 MG CAP PO SCH (10:41)
[2024-09-12] MEDS: ISOSORBIDE MONO EXTENDED REL 60 MG TABCR PO SCH (10:41)
[2024-09-12] MEDS: LABETALOL HCL 100 MG TAB PO SCH (10:41)
[2024-09-12] MEDS: cilostazoL 100 MG TAB PO SCH (10:42)
[2024-09-12] MEDS: methylPREDNISolone 40 MG in SYRINGE 0 ML IV SCH (13:43)
[2024-09-12] MEDS ORDERED: methylPREDNISolone 10 mg/mL (For Ped Dose < 7mg) IV SCH (14:00)
[2024-09-12] MEDS: DOXYCYCLINE HYCLATE 100 MG in DEXTROSE 5% MINI-B 100 ML IV SCH (19:38)
[2024-09-12] MEDS ORDERED: BACLOFEN 10 MG TAB PO SCH (21:00)
[2024-09-12] MEDS: CEFEPIME 1000MG 1,000 MG/10 ML SYR IV SCH (21:29)
[2024-09-13] MEDS: MELATONIN 3 MG TAB PO PRN (01:29)
[2024-09-13 06:23] LABS: Hematocrit (blood only) 27.1 % (42.0-52.0); Hemoglobin 9.1 g/dl (14.0-18.0); Mean Corpuscular Hgb Conc 33.6 g/dL (32.0-36.0); Mean Corpuscular Volume 92.2 fL (80.0-100.0); Mean Platelet Volume 12.3 fL (9.4-12.4); Platelet Count 163 K/uL (130-400); RDW Coefficient of Variation 14.6 % (11.5-14.5); RDW Standard Deviation 49.1 fL (36.4-46.3); Red Blood Count 2.94 M/uL (4.70-6.10)
[2024-09-13 06:46] LABS: Basophils # (auto) 0.05 K/uL (0.00-0.20); Basophils % (auto) 0.4 %; Dohle Bodies 1+; Eosinophils # (auto) 0.07 K/uL (0.00-0.50); Eosinophils % (auto) 0.6 %; Immature Granulocytes # (auto) 0.07 K/uL (0.01-0.20); Immature Granulocytes % (auto) 0.6 %; Lymphocytes # (auto) 0.43 K/uL (1.20-3.40); Lymphocytes % (auto) 3.4 %; Monocytes % (auto) 4.7 %; Neutrophils # (auto) 11.48 K/uL (1.40-6.50); Neutrophils % (auto) 90.3 %; Polychromasia 1+
[2024-09-13 06:54] LABS: Albumin Globulin Ratio 0.9 (0.9-2); Albumin Level 3.2 gm/dl (3.4-5.0); Bilirubin,Total 0.5 mg/dl (0.2-1.0); Calcium 9.5 mg/dl (8.6-10.3); Creatinine Clr Calc Pharmacy 17.7 ml/min; Globulin 3.6 gm/dl (2.5-4.0); Magnesium 2.3 mg/dl (1.7-2.4); Phosphorus 5.1 mg/dl (2.5-4.9); Potassium 4.5 mmol/L (3.5-5.1); Total Protein 6.8 gm/dl (6.0-8.3)
[2024-09-13 07:33] LABS: Estimated Average Glucose 154 mg/dl
--- NOTE | 2024-09-13 08:50 | Hospitalist Progress Note ---
Date of Service September 13, 2024 Assessment & Plan (1) Acute respiratory failure with hypoxia: (2) Pneumonia involving right lung: (3) COPD exacerbation: (4) Atrial fibrillation, permanent: (5) Diabetes mellitus: Plan The patient is an 88-year-old male with past medical history including CAD, presence of cardiac pacemaker, anxiety, long-term use of anticoagulant, cognitive decline, diabetes mellitus, permanent atrial fibrillation, CKD stage III, BPH with LUTS. He presents to the emergency department with concerns for pneumonia and acute kidney injury Pneumonia involving right middle and right lower lobe- BioFire testing negative MRSA swab Give methylprednisolone 125 mg IV then 40 mg IV every 8 hours Placed on vancomycin IV per pharmacokinetic monitoring Cefepime 2 g IV every 12 hours Doxycycline 100 mg IV 12 hours Mucinex 1200 mg p.o. every 12 hours Duonebs every 4 hours while awake and every 2 hours when necessary. Permanent atrial fibrillation/hypertension/history of CHF/PAD-Hfr EF 20-25% Continue apixaban, atorvastatin, Pletal, isosorbide mononitrate, labetalol Hold calcium chloride, furosemide, lisinopril OSVALDO with CKD3 -bicarb and potassium are normal suspect ATN =/- obstrutive uropathy, BPH with LUTS- hold renal toxic meds, consider Castanon, Continue tamsulosin Nephrology giving low boluses of crystalloid solution Hypothyroidism- Continue levothyroxine Hyperglycemia-history of diabetes Glucose 168 on admission No diagnosis of diabetes or medications to treat as such Place on Accu-Cheks with NovoLog SSI Admission and Anticipated Discharge Date Admission Date: September 12, 2024 Subjective Patient is pleasantly confused cannot offer any direction denies any discomfort at this time Physical Exam Physical Exam: Planes of then diminished breath sounds at the bases otherwise rhonchi and rales just above Edema is not present in his legs Results & Data Results & Data Vital Signs (Past 12 Hours) Vital Signs Temp Pulse Pulse Resp BP Pulse Ox O2 Del Method 09/13/24 08:07 97.3 F L 75 20 171/82 H 94 Nasal Cannula 09/13/24 08:03 Nasal Cannula 09/13/24 07:14 16 91 Nasal Cannula 09/13/24 02:05 97.5 F L 79 16 167/64 H 92 Nasal Cannula 09/12/24 23:25 97.5 F L 77 18 164/83 H 94 Nasal Cannula 09/12/24 23:00 64 O2 Flow Rate 09/13/24 08:07 4.0 09/13/24 08:03 4 09/13/24 07:14 2 09/13/24 02:05 4 09/12/24 23:25 4 09/12/24 23:00 Laboratory Results Reviewed CBC reviewed chemistryacute on chronic renal failure PG Care Time/CCT Total # of Minutes Spent Total Time Spent with Patient: Total time spent is greater than 50% in coordination of care (as documented) at patient's floor/unit and/or counseling patient: Coding Level of Care Code 51583 SUB INP/OBS CARE 3/50MIN Diagnoses Acute respiratory failure with hypoxia J96.01 Pneumonia involving right lung J18.9 COPD exacerbation J44.1 Atrial fibrillation, permanent I48.21 Diabetes mellitus E11.9
[2024-09-13] MEDS: CHOLECALCIFEROL 25 MCG (1000 UNITS) TAB PO SCH (10:37)
[2024-09-13] MEDS: LEVOTHYROXINE SODIUM 200 MCG TABLET PO SCH (10:37)
[2024-09-13] MEDS: SODIUM CHLORIDE 0.9% 500 ML IV SCH (12:45)
--- NOTE | 2024-09-13 13:35 | Ultrasound Report ---
RENAL ULTRASOUND CLINICAL HISTORY: Acute kidney injury. COMPARISON STUDY: CT of the abdomen and pelvis January 01, 2022. Renal ultrasound April 28, 2023. TECHNIQUE: Sonography of the kidneys and the urinary bladder was performed. FINDINGS: The right kidney measures 12.9 cm in maximal dimension and the left measures 13.1 cm. There is no hydronephrosis. Several bilateral renal cysts measure up to 3.2 cm. There is a Castanon balloon w ithin the bladder. IMPRESSION: No hydronephrosis. ACT 112: Negative or not required by law. Electronically signed by: Joe Novoa M.D. 09/13/2024 1:34 PM
--- NOTE | 2024-09-13 17:01 | Nephrology Consultation ---
Date of Consultation September 13, 2024 Assessment & Plan (1) Acute kidney injury: * OSVALDO on CKD likely due to dehydration in the setting of SIRIA inhibitor therapy * Patient appears clinically volume contracted with dry mucous membranes and poor skin turgor * Hold furosemide and lisinopril * Will provide 500 cc 0.9 normal saline IV x 1 and monitor BMP, UO * 09/13/24 renal US - no hydronephrosis * Electrolyte balance is acceptable. No acute indication for HD at this time * Monitor BMP, UO (2) CKD (chronic kidney disease) stage 3, GFR 30-59 ml/min: * CKD stage G3b/A2 (moderate impairment). Baseline Cr has been 1.6 w/ EGFR 38 cc/minute dating back to 2019. Outpatient evaluation revealed a benign urine sediment. UACR 0.5. Renal impairment has been attributed to microvascular disease and chronic GAONA related to BPH (3) Multifocal pneumonia: * Respiratory BioFire negative * Azotemia in part related to steroid therapy * Continue aggressive nebulizer therapy * Continue cefepime and doxycycline therapy (4) COPD exacerbation: (5) Dementia: History of Present Illness Reason for Consultation: OSVALDO/CKD Attending Physician: Hong Blandon MD History of Present Illness Mr. Dueñas is an 88-year-old white male who is seen at the request of the [facility] hospitalist service for evaluation of OSVALDO/CKD. Information for the HPI is obtained from direct patient interview and review of the EMR. HPI summarized as follows: Mr. Dueñas has CKD stage G3b/A2 (moderate i mpairment). Baseline Cr has been 1.6 w/ EGFR 38 cc/minute dating back to 2018. Outpatient evaluation revealed a benign urine sediment. UACR 0.5. Renal impairment has been attributed to microvascular disease and chronic GAONA related to BPH. His medical history is also significant for vascular dementia, COPD, BPH, chronic atrial fibrillation, bradycardia status post pacemaker, hypothyroidism, gout, and AODM. Mr. Dueñas presented to the EMD today for evaluation of dyspnea. He required O2 at 5L/minute to maintain SaO2 92%. CXR revealed bilateral lower lobe infiltrates concerning for pneumonia. Mr. Dueñas was admitted to the hospitalist service and started on ceftriaxone and doxycycline therapy. Respiratory bio fire study was negative. Admission laboratory studies reveal BUN 103, creatinine 3.0. Allergies Allergy/AdvReac Type Severity Reaction Status Date / Time codeine Allergy Unknown CAN'T Verified 07/19/24 08:56 REMEMBER morphine Allergy Unknown CAN'T Verified 07/19/24 08:56 REMEMBER Penicillins Allergy Unknown CAN'T Verified 07/19/24 08:56 REMEMBER Home Medications Medication Instructions Recorded Confirmed Type clindamycin HCl 150 mg capsule 600 mg PO DIRECTED PRN PRIOR TO 05/27/19 09/12/24 History DENTAL APPOINTMENTS nitroglycerin 0.4 mg sublingual 0.4 mg sublingual Q5M PRN chest 05/27/19 09/12/24 History tablet pain vit C 50 mg-E 15 unit-zinc cit 4.5 1 tab PO DAILY 07/01/21 09/12/24 History mg-lutein 2.5 mg-zeaxan chew tablet ([employer]) vitamins-lipotropics tablet 1 tab PO DAILY PRN PER PT LIST 10/02/22 09/12/24 History NEEDED Wheeled Walker #1 ea 10/10/22 07/19/24 Rx omeprazole 20 mg capsule,delayed 20 mg PO DAILY #90 caps 11/11/22 09/12/24 Rx release loperamide 2 mg capsule 2 mg PO DAILY 01/15/23 09/12/24 History calcium carbonate 500 mg PO BID #60 tabs 02/05/23 09/12/24 Rx acetaminophen 650 mg 650 mg PO HS PRN Pain 02/06/23 09/12/24 History tablet,extended release cholecalciferol (vitamin D3) 50 50 mcg PO DAILY #90 caps 02/28/23 09/12/24 Rx mcg (2,000 unit) capsule magnesium oxide 400 mg (241.3 mg 400 mg PO BID #60 tabs 08/20/23 09/12/24 Rx magnesium) tablet Leonor's Restless Leg 3 tabs sublingual Q4H PRN RESTLESS 08/26/23 09/12/24 History LEGS labetalol 100 mg tablet 100 mg PO BID #180 tabs 09/16/23 09/12/24 Rx levothyroxine 200 mcg tablet 200 mcg PO DAILY #90 tabs 11/11/23 09/12/24 Rx atorvastatin 20 mg tablet 20 mg PO DAILY #90 tabs 01/05/24 09/12/24 Rx famotidine 40 mg tablet 40 mg PO DAILY #90 tabs 01/05/24 09/12/24 Rx gemfibrozil 600 mg tablet 600 mg PO BID #180 tabs 01/05/24 09/12/24 Rx apixaban 2.5 mg tablet (Eliquis) 2.5 mg PO BID #180 tabs 02/18/24 09/12/24 Rx lisinopril 20 mg tablet 20 mg PO DAILY #90 tabs 04/14/24 09/12/24 Rx allopurinol 100 mg tablet 200 mg (2 x 100 mg) PO DAILY #180 06/23/24 09/12/24 Rx tabs baclofen 10 mg tablet 10 mg PO HS #90 tabs 06/23/24 09/12/24 Rx potassium chloride 10 mEq 20 meq (2 x 10 mEq) PO BID #360 06/23/24 09/12/24 Rx tablet,extended release tabs isosorbide mononitrate 60 mg 60 mg PO DAILY #90 tabs 09/03/24 09/12/24 Rx tablet,extended release 24 hr cilostazol 50 mg tablet 0 mg PO BID 09/12/24 09/12/24 History furosemide 80 mg tablet (Lasix) 0 mg PO BID 09/12/24 09/12/24 History tamsulosin 0.4 mg capsule 0.4 mg PO DAILY #90 caps 09/13/24 Rx Patient History Medical History Pacemaker battery depletion Pre-syncope (01/31/14) Chest pain CHF (congestive heart failure) Angina pectoris (01/24/14) Surgical History Hx of CABG Family History Mother Breast cancer Myocardial infarction Denies family history of Ovarian cancer Prostate cancer Colorectal cancer Social History Smoking Status: Unknown if ever smoked Tobacco Type: Declines Age Started Using Tobacco: 18; Age Quit Using Tobacco: 45; packs per day: 1; Tobacco Cessation Education Requested by Patient: No Preferred Language: Belarusian Communication Ability: Effective Communication Ability Comment: hard of hearing, some forgetfulness Visual Impairment: No Limitations Hearing Ability: Use of Hearing Aid Pelt Dropper Required: No Beliefs That Will Affect Care: None marital status: Current Living Situation: Spouse Current Living Situation Comment: current occupational status: retired Other Information That Helps Us Care for You: Yes Feels Safe at Home: Yes Safety Concerns: Feels Safe At This Time Childhood Exposure to Second-Hand Smoke: No Diet: regular caffeine: Yes (2-3 coffee daily) Dental Care, Regularly: Yes Seatbelt Use: always Sunscreen Use: No Do you think of yourself as: straight/heterosexual Gender Identity: Male Assistive Devices: Walker Assistive Devices Comment: walker needed Review of Systems Constitutional: no fever Eyes: no problem reported Ear, Nose, Mouth, Throat: no problem reported Respiratory: + dyspnea and + wheezing Cardiovascular: no chest pain Gastrointestinal: no abdominal pain, no nausea, no vomiting and no diarrhea/loose stools Genitourinary: no dysuria, no hematuria or no flank pain Integumentary: no rash Physical Exam Constitutional: not in distress Eyes: PERRL, conjunctivae normal, anicteric sclerae ENMT: Mouth: + dry oral mucous membranes Neck: trachea midline, no thyromegaly Respiratory: normal respiratory effort and able to speak in complete sentences; no respiratory distress Auscultation: + wheezes and + abnormal I/E ratio Cardiovascular: Rate/Rhythm: + irregularly irregular Gastrointestinal (Abdomen): normal bowel sounds, soft, nontender, no hepatosplenomegaly Musculoskeletal: Extremities: no cyanosis Skin: no rashes, warm and dry + turgor decreased Neurologic: awake; not confused Results & Data Vital Signs (Past 12 Hours) Vital Signs Temp Pulse Pulse Resp BP Pulse Ox O2 Del Method 09/13/24 08:07 36.3 C L 75 20 171/82 H 94 Nasal Cannula 09/13/24 08:03 Nasal Cannula 09/13/24 07:14 16 91 Nasal Cannula 09/13/24 02:05 36.4 C L 79 16 167/64 H 92 Nasal Cannula 09/12/24 23:25 36.4 C L 77 18 164/83 H 94 Nasal Cannula 09/12/24 23:00 64 O2 Flow Rate 09/13/24 08:07 4.0 09/13/24 08:03 4 09/13/24 07:14 2 09/13/24 02:05 4 09/12/24 23:25 4 09/12/24 23:00 Laboratory Results Laboratory Results WBC 12.70 K/ul (4.8-10.8) H 09/13/24 05:25 RBC 2.94 M/uL (4.70-6.10) L 09/13/24 05:25 Hgb 9.1 g/dl (14.0-18.0) L 09/13/24 05:25 Hct 27.1 % (42.0-52.0) L 09/13/24 05:25 MCV 92.2 fL (80.0-100.0) 09/13/24 05:25 MCH 31.0 pg (25.0-34.0) 09/13/24 05:25 MCHC 33.6 g/dL (32.0-36.0) 09/13/24 05:25 RDW Std Deviation 49.1 fL (36.4-46.3) H 09/13/24 05:25 RDW Coeff of Gerri 14.6 % (11.5-14.5) H 09/13/24 05:25 Plt Count 163 K/uL (130-400) 09/13/24 05:25 MPV 12.3 fL (9.4-12.4) 09/13/24 05:25 Immature Gran % (Auto) 0.6 % 09/13/24 05:25 Neut % (Auto) 90.3 % 09/13/24 05:25 Lymph % (Auto) 3.4 % 09/13/24 05:25 [place]man % (Auto) 4.7 % 09/13/24 05:25 Eos % (Auto) 0.6 % 09/13/24 05:25 Baso % (Auto) 0.4 % 09/13/24 05:25 Neut # (Auto) 11.48 K/uL (1.40-6.50) H 09/13/24 05:25 Lymph # (Auto) 0.43 K/uL (1.20-3.40) L 09/13/24 05:25 [place] # (Auto) 0.60 K/uL (0.11-0.59) H 09/13/24 05:25 Eos # (Auto) 0.07 K/uL (0.00-0.50) 09/13/24 05:25 Baso # (Auto) 0.05 K/uL (0.00-0.20) 09/13/24 05:25 Immature Gran # (Auto) 0.07 K/uL (0.01-0.20) 09/13/24 05:25 Dohle Bodies 1+ 09/13/24 05:25 Polychromasia 1+ 09/13/24 05:25 Sodium 138 mmol/L (136-145) 09/13/24 05:25 Potassium 4.5 mmol/L (3.5-5.1) 09/13/24 05:25 Chloride 98 mmol/L (98-107) 09/13/24 05:25 Carbon Dioxide 28 mmol/L (21-32) 09/13/24 05:25 Anion Gap 12 (3-11) H 09/13/24 05:25 BUN 103 mg/dl (6-23) H 09/13/24 05:25 Creatinine 3.03 mg/dl (0.6-1.4) H 09/13/24 05:25 Est Cr Clr Drug Dosing 17.7 ml/min 09/13/24 05:25 eGFR 19.26 09/13/24 05:25 BUN/Creatinine Ratio 34.0 (10-20) H 09/13/24 05:25 Glucose 152 mg/dl (70-99(Fasting)) H 09/13/24 05:25 POC Glucose 172 mg/dl (70-99) H 09/13/24 17:12 Estimat Average Glucose 154 mg/dl 09/13/24 05:25 Hemoglobin A1c 7.0 % (4.5-5.6) H 09/13/24 05:25 Calcium 9.5 mg/dl (8.6-10.3) 09/13/24 05:25 Phosphorus 5.1 mg/dl (2.5-4.9) H 09/13/24 05:25 Magnesium 2.3 mg/dl (1.7-2.4) 09/13/24 05:25 Total Bilirubin 0.5 mg/dl (0.2-1.0) 09/13/24 05:25 AST 45 U/L (13-39) H 09/13/24 05:25 ALT 12 U/L (7-52) 09/13/24 05:25 Alkaline Phosphatase 173 U/L (34-104) H 09/13/24 05:25 Troponin I High Sens 41.4 pg/ml (0-20) H 09/12/24 07:17 B-Natriuretic Peptide 385 pg/ml (0-100) H 09/12/24 05:30 Total Protein 6.8 gm/dl (6.0-8.3) 09/13/24 05:25 Albumin 3.2 gm/dl (3.4-5.0) L 09/13/24 05:25 Globulin 3.6 gm/dl (2.5-4.0) 09/13/24 05:25 Albumin/Globulin Ratio 0.9 (0.9-2) 09/13/24 05:25 Urine Color Yellow 09/12/24 Unknown Urine Appearance Cloudy (Clear) A 09/12/24 Unknown Urine pH >= 9.0 (4.5-7.5) H 09/12/24 Unknown Ur Specific Vega 1.015 (1.000-1.030) 09/12/24 Unknown Urine Protein 1+ (Negative) H 09/12/24 Unknown Urine Glucose (UA) Negative (Negative) 09/12/24 Unknown Urine Ketones Negative (Negative) 09/12/24 Unknown Urine Blood 1+ (Negative) H 09/12/24 Unknown Urine Nitrite Negative (Negative) 09/12/24 Unknown Urine Bilirubin Negative (Negative) 09/12/24 Unknown Urine Urobilinogen Negative (Negative) 09/12/24 Unknown Ur Leukocyte Esterase 2+ (Negative) H 09/12/24 Unknown Urine WBC (Auto) 21-50 /hpf (0-5) H 09/12/24 Unknown Urine RBC (Auto) >20 /hpf (0-2) H 09/12/24 Unknown U Hyaline Cast (Auto) >20 /lpf (0-2) H 09/12/24 Unknown U Epithel Cells (Auto) 0-2 /hpf (0-2) 09/12/24 Unknown Urine Bacteria (Auto) 4+ (None Seen) H 09/12/24 Unknown Hyaline Casts Present /lpf (None Presnt) A 09/12/24 Unknown Nasal Screen MRSA (PCR) Negative (Negative) 09/12/24 07:10 Adenovirus (PCR) Not Detected (NotDetected) 09/12/24 05:30 B. pertussis DNA (PCR) Not Detected (NotDetected) 09/12/24 05:30 B.parapertussis DNA PCR Not Detected (NotDetected) 09/12/24 05:30 C. pneumoniae DNA (PCR) Not Detected (NotDetected) 09/12/24 05:30 Coronavirus OC43 (PCR) Not Detected (NotDetected) 09/12/24 05:30 Coronavirus HKU1 (PCR) Not Detected (NotDetected) 09/12/24 05:30 Coronavirus 229E (PCR) Not Detected (NotDetected) 09/12/24 05:30 SARS-CoV-2 (PCR) Not Detected (NotDetected) 09/12/24 05:30 Coronavirus NL63 (PCR) Not Detected (NotDetected) 09/12/24 05:30 Human Metapneumovir PCR Not Detected (NotDetected) 09/12/24 05:30 Influenza Type A (PCR) Not Detected (NotDetected) 09/12/24 05:30 Influenza Type B (PCR) Not Detected (NotDetected) 09/12/24 05:30 M. pneumoniae (PCR) Not Detected (NotDetected) 09/12/24 05:30 Parainfluenza 1 (PCR) Not Detected (NotDetected) 09/12/24 05:30 Parainfluenza 2 (PCR) Not Detected (NotDetected) 09/12/24 05:30 Parainfluenza 3 (PCR) Not Detected (NotDetected) 09/12/24 05:30 Parainfluenza 4 (PCR) Not Detected (NotDetected) 09/12/24 05:30 RSV (PCR) Not Detected (NotDetected) 09/12/24 05:30 Entero/Rhino (PCR) Not Detected (NotDetected) 09/12/24 05:30 Impressions Chest X-Ray 09/12/24 05:22 EXAM: XR chest 1V portable CLINICAL HISTORY: SOB KFK TECHNIQUE: An X-ray image of the chest is obtained in 1 AP projection. COMPARISON: 08/28/2023 FINDINGS: Pulmonary Parenchyma: Haziness is seen in the right middle and lower zones. Prominent broncho-vascular markings are seen bilaterally. No evidence of pleural effusion or pleural thickening. Heart and Mediastinum: Heart size and shape are normal. No mediastinal widening or masses. No hilar or mediastinal lymphadenopathy. Both velia appear prominent. Midline sternotomy sutures with surgical amy were seen status post-intervention. A cardiac pacemaker device was seen in place. Bony Thorax: The bony thorax appears intact without fractures or deformities. Soft Tissues: Soft tissues overlying the chest wall are unremarkable. IMPRESSION: 1. Haziness is seen in the right middle and lower zones, Would recommend clinical and lab correlation and follow-up chest x-ray to rule out the possibility of pulmonary infection. 2. The rest of the findings appear interval stable. Electronically signed by Basilio Garcia 09-12-2024 06:47 AM Renal Ultrasound 09/13/24 08:49 RENAL ULTRASOUND CLINICAL HISTORY: Acute kidney injury. COMPARISON STUDY: CT of the abdomen and pelvis January 01, 2022. Renal ultrasound April 28, 2023. TECHNIQUE: Sonography of the kidneys and the urinary bladder was performed. FINDINGS: The right kidney measures 12.9 cm in maximal dimension and the left measures 13.1 cm. There is no hydronephrosis. Several bilateral renal cysts measure up to 3.2 cm. There is a Castanon balloon within the bladder. IMPRESSION: No hydronephrosis. ACT 112: Negative or not required by law. Electronically signed by: Joe Novoa M.D. 09/13/2024 1:34 PM PG Care Time/CCT Total # of Minutes Spent Total Time Spent with Patient: Total time spent is greater than 50% in coordination of care (as documented) at patient's floor/unit and/or counseling patient: Coding Level of Care Code 97176 IN/OBS CONSULT LVL 5,80M Diagnoses Acute kidney injury N17.9 CKD (chronic kidney disease) stage 3, GFR 30-59 ml/min N18.30 Multifocal pneumonia J18.9 COPD exacerbation J44.1 Dementia F03.90
[2024-09-14 06:26] LABS: Basophils # (auto) 0.02 K/uL (0.00-0.20); Basophils % (auto) 0.1 %; Hematocrit (blood only) 26.3 % (42.0-52.0); Immature Granulocytes # (auto) 0.21 K/uL (0.01-0.20); Immature Granulocytes % (auto) 1.6 %; Lymphocytes # (auto) 0.49 K/uL (1.20-3.40); Lymphocytes % (auto) 3.6 %; Mean Corpuscular Hemoglobin 31.4 pg (25.0-34.0); Mean Corpuscular Hgb Conc 34.2 g/dL (32.0-36.0); Mean Corpuscular Volume 91.6 fL (80.0-100.0); Mean Platelet Volume 12.2 fL (9.4-12.4); Monocytes # (auto) 0.76 K/uL (0.11-0.59); Monocytes % (auto) 5.6 %; Neutrophils # (auto) 12.03 K/uL (1.40-6.50); Neutrophils % (auto) 89.1 %; Nucleated RBC # (auto) 0.02 K/uL (0.00-0.12); Nucleated RBC % (auto) 0.1 %; Platelet Count 178 K/uL (130-400); RDW Coefficient of Variation 14.6 % (11.5-14.5); RDW Standard Deviation 49.1 fL (36.4-46.3); Red Blood Count 2.87 M/uL (4.70-6.10); White Blood Count 13.51 K/ul (4.8-10.8)
[2024-09-14 06:39] LABS: Albumin Globulin Ratio 0.9 (0.9-2); Albumin Level 3.2 gm/dl (3.4-5.0); BUN Creatinine Ratio 44.4 (10-20); Bilirubin,Total 0.5 mg/dl (0.2-1.0); Calcium 9.3 mg/dl (8.6-10.3); Creatinine Clr Calc Pharmacy 21.5 ml/min; Globulin 3.5 gm/dl (2.5-4.0); Magnesium 2.5 mg/dl (1.7-2.4); Potassium 3.7 mmol/L (3.5-5.1); Total Protein 6.7 gm/dl (6.0-8.3)
--- NOTE | 2024-09-14 08:58 | Nephrology Progress Note ---
Date of Service September 14, 2024 Assessment & Plan (1) Acute kidney injury: Plan: * OSVALDO on CKD likely due to dehydration in the setting of SIRIA inhibitor therapy * Patient appears clinically volume contracted with dry mucous membranes and poor skin turgor * Continue to hold furosemide and lisinopril * Creatinine has improved from 3.0-->2.5 following 500 cc 0.9NS yesterday * I&O's have been essentially matched last 24 hours * Will provide 1L 0.9 normal saline IV x 1 and monitor BMP, UO * 09/13/24 renal US - no hydronephrosis * Electrolyte balance is acceptable. No acute indication for HD at this time * Monitor BMP, UO (2) CKD (chronic kidney disease) stage 3, GFR 30-59 ml/min: Plan: * CKD stage G3b/A2 (moderate impairment). Baseline Cr has been 1.6 w/ EGFR 38 cc/minute dating back to 2019. Outpatient evaluation revealed a benign urine sediment. UACR 0.5. Renal impairment has been attributed to microvascular disease and chronic GAONA related to BPH (3) Multifocal pneumonia: Plan: * Respiratory BioFire negative * Azotemia in part related to steroid therapy * Continue aggressive nebulizer therapy * Continue cefepime and doxycycline therapy (4) COPD exacerbation: (5) Dementia: Admission and Anticipated Discharge Date Admission Date: September 12, 2024 Subjective Mr. Dueñas was evaluated in his hospital room this morning. He was breathing comfortably on O2 at 2L NC but c/o expiratory wheezing Review of Systems Constitutional: no fever Eyes: no problem reported Ear, Nose, Mouth, Throat: no problem reported Respiratory: + dyspnea and + wheezing Cardiovascular: no chest pain Gastrointestinal: no abdominal pain, no nausea, no vomiting and no diarrhea/loose stools Genitourinary: no dysuria, no hematuria or no flank pain Integumentary: no rash Physical Exam Constitutional: not in distress Eyes: PERRL, conjunctivae normal, anicteric sclerae ENMT: Mouth: + dry oral mucous membranes Neck: trachea midline, no thyromegaly Respiratory: normal respiratory effort and able to speak in complete sentences; no respiratory distress Auscultation: + wheezes and + abnormal I/E ratio Cardiovascular: Rate/Rhythm: + irregularly irregular Gastrointestinal (Abdomen): normal bowel sounds, soft, nontender, no hepatosplenomegaly Musculoskeletal: Extremities: no cyanosis Skin: no rashes, warm and dry + turgor decreased Neurologic: awake; not confused Results & Data Vital Signs (Past 12 Hours) Vital Signs Temp Pulse Resp BP BP Pulse Ox O2 Del Method 09/14/24 08:04 36.3 C L 72 18 176/68 H 96 Nasal Cannula 09/14/24 07:14 66 16 94 Nasal Cannula 09/14/24 02:57 36.3 C L 73 22 173/78 H 93 Nasal Cannula 09/13/24 23:24 36.5 C 74 18 131/61 93 Nasal Cannula 09/13/24 21:25 Nasal Cannula O2 Flow Rate 09/14/24 08:04 2 09/14/24 07:14 2 09/14/24 02:57 2 09/13/24 23:24 2 09/13/24 21:25 2 Laboratory Results Laboratory Results - last 24 hr 09/13/24 09/13/24 09/13/24 11:56 17:12 20:10 WBC RBC Hgb Hct MCV MCH MCHC RDW Std Deviation RDW Coeff of Gerri Plt Count MPV Immature Gran % (Auto) Neut % (Auto) Lymph % (Auto) [place] % (Auto) Eos % (Auto) Baso % (Auto) Neut # (Auto) Lymph # (Auto) [place] # (Auto) Eos # (Auto) Baso # (Auto) Immature Gran # (Auto) Absolute Nucleated RBC Nucleated RBC % (auto) Sodium Potassium Chloride Carbon Dioxide Anion Gap BUN Creatinine Est Cr Clr Drug Dosing eGFR BUN/Creatinine Ratio Glucose POC Glucose 223 H 172 H 198 H Calcium Magnesium Total Bilirubin AST ALT Alkaline Phosphatase Total Protein Albumin Globulin Albumin/Globulin Ratio 09/14/24 09/14/24 06:01 08:00 WBC 13.51 H RBC 2.87 L Hgb 9.0 L Hct 26.3 L MCV 91.6 MCH 31.4 MCHC 34.2 RDW Std Deviation 49.1 H RDW Coeff of Gerri 14.6 H Plt Count 178 MPV 12.2 Immature Gran % (Auto) 1.6 Neut % (Auto) 89.1 Lymph % (Auto) 3.6 [place] % (Auto) 5.6 Eos % (Auto) 0.0 Baso % (Auto) 0.1 Neut # (Auto) 12.03 H Lymph # (Auto) 0.49 L [place] # (Auto) 0.76 H Eos # (Auto) 0.00 Baso # (Auto) 0.02 Immature Gran # (Auto) 0.21 H Absolute Nucleated RBC 0.02 Nucleated RBC % (auto) 0.1 Sodium 137 Potassium 3.7 Chloride 101 Carbon Dioxide 25 Anion Gap 11 BUN 111 H Creatinine 2.50 H D Est Cr Clr Drug Dosing 21.5 eGFR 24.26 BUN/Creatinine Ratio 44.4 H Glucose 183 H POC Glucose 210 H Calcium 9.3 Magnesium 2.5 H Total Bilirubin 0.5 AST 42 H ALT 16 Alkaline Phosphatase 89 Total Protein 6.7 Albumin 3.2 L Globulin 3.5 Albumin/Globulin Ratio 0.9 PG Care Time/CCT Total # of Minutes Spent Total Time Spent with Patient: Total time spent is greater than 50% in coordination of care (as documented) at patient's floor/unit and/or counseling patient: Coding Level of Care Code 91794 SUB INP/OBS CARE 3/50MIN Diagnoses Acute kidney injury N17.9 CKD (chronic kidney disease) stage 3, GFR 30-59 ml/min N18.30 Multifocal pneumonia J18.9 COPD exacerbation J44.1 Dementia F03.90
--- NOTE | 2024-09-14 09:11 | Hospitalist Progress Note ---
Date of Service September 14, 2024 Assessment & Plan (1) Acute respiratory failure with hypoxia: (2) Pneumonia involving right lung: (3) COPD exacerbation: (4) Atrial fibrillation, permanent: (5) Diabetes mellitus: Plan The patient is an 88-year-old male with past medical history including CAD, presence of cardiac pacemaker, anxiety, long-term use of anticoagulant, cognitive decline, diabetes mellitus, permanent atrial fibrillation, CKD stage III, BPH with LUTS. He presents to the emergency department with concerns for pneumonia and acute kidney injury Pneumonia involving right middle and right lower lobe- BioFire testing negative 40 mg IV every 8 hours, will transition to po Cefepime renal dose adjusted Doxycycline 100 mg IV 12 hours Mucinex 1200 mg p.o. every 12 hours Duonebs every 4 hours while awake and every 2 hours when necessary. Permanent atrial fibrillation/hypertension/history of CHF/PAD-Hfr EF 20-25% Continue apixaban, atorvastatin, Pletal, isosorbide mononitrate, labetalol Hold calcium chloride, furosemide, lisinopril OSVALDO with CKD3 -bicarb and potassium are normal suspect ATN =/- obstructive uropathy, BPH with LUTS- hold renal toxic meds, consider Castanon, Continue tamsulosin Nephrology giving low boluses of crystalloid solution Hypothyroidism- Continue levothyroxine Hyperglycemia-history of diabetes Glucose 168 on admission No diagnosis of diabetes or medications to treat as such Place on Accu-Cheks with NovoLog [facility] Admission and Anticipated Discharge Date Admission Date: September 12, 2024 Subjective Patient is pleasantly confused says is not feeling much better Objectively does not seem to be short of breath is still requiring some oxygen supplementation Physical Exam Physical Exam: He is awake alert oriented x 2 Card exam is regular Lungs are without wheezes or focal Aralast but diminished breath sounds at the bases Extremities are without edema Results & Data Results & Data Vital Signs (Past 12 Hours) Vital Signs Temp Pulse Resp BP BP Pulse Ox O2 Del Method 09/14/24 08:04 97.3 F L 72 18 176/68 H 96 Nasal Cannula 09/14/24 07:14 66 16 94 Nasal Cannula 09/14/24 02:57 97.3 F L 73 22 173/78 H 93 Nasal Cannula 09/13/24 23:24 97.7 F 74 18 131/61 93 Nasal Cannula 09/13/24 21:25 Nasal Cannula O2 Flow Rate 09/14/24 08:04 2 09/14/24 07:14 2 09/14/24 02:57 2 09/13/24 23:24 2 09/13/24 21:25 2 Laboratory Results Reviewed CBC reviewed chemistry PG Care Time/CCT Total # of Minutes Spent Total Time Spent with Patient: Total time spent is greater than 50% in coordination of care (as documented) at patient's floor/unit and/or counseling patient: Coding Level of Care Code 32063 SUB INP/OBS CARE 3/50MIN Diagnoses Acute respiratory failure with hypoxia J96.01 Pneumonia involving right lung J18.9 COPD exacerbation J44.1 Atrial fibrillation, permanent I48.21 Diabetes mellitus E11.9
[2024-09-14] MEDS: SODIUM CHLORIDE 0.9% 1,000 ML IV SCH (12:57)
[2024-09-15 06:07] LABS: Basophils # (auto) 0.03 K/uL (0.00-0.20); Basophils % (auto) 0.3 %; Hematocrit (blood only) 26.6 % (42.0-52.0); Hemoglobin 8.8 g/dl (14.0-18.0); Immature Granulocytes # (auto) 0.27 K/uL (0.01-0.20); Immature Granulocytes % (auto) 2.7 %; Lymphocytes # (auto) 0.51 K/uL (1.20-3.40); Lymphocytes % (auto) 5.1 %; Mean Corpuscular Hemoglobin 30.2 pg (25.0-34.0); Mean Corpuscular Hgb Conc 33.1 g/dL (32.0-36.0); Mean Corpuscular Volume 91.4 fL (80.0-100.0); Mean Platelet Volume 11.9 fL (9.4-12.4); Monocytes # (auto) 0.63 K/uL (0.11-0.59); Monocytes % (auto) 6.2 %; Neutrophils # (auto) 8.65 K/uL (1.40-6.50); Neutrophils % (auto) 85.7 %; Nucleated RBC # (auto) 0.02 K/uL (0.00-0.12); Nucleated RBC % (auto) 0.2 %; Platelet Count 175 K/uL (130-400); RDW Coefficient of Variation 14.6 % (11.5-14.5); RDW Standard Deviation 49.1 fL (36.4-46.3); Red Blood Count 2.91 M/uL (4.70-6.10); White Blood Count 10.09 K/ul (4.8-10.8)
[2024-09-15 06:49] LABS: Bilirubin,Total 0.5 mg/dl (0.2-1.0); Calcium 9.2 mg/dl (8.6-10.3); Magnesium 2.6 mg/dl (1.7-2.4); Potassium 3.6 mmol/L (3.5-5.1)
[2024-09-15 06:55] LABS: Albumin Globulin Ratio 0.9 (0.9-2); BUN Creatinine Ratio 51.3 (10-20); Globulin 3.3 gm/dl (2.5-4.0); Total Protein 6.3 gm/dl (6.0-8.3)
--- NOTE | 2024-09-15 09:08 | Nephrology Progress Note ---
Date of Service September 15, 2024 Assessment & Plan (1) Acute kidney injury: Plan: * OSVALDO on CKD due to dehydration in the setting of SIRIA inhibitor therapy * Patient remains clinically volume contracted with dry mucous membranes and poor skin turgor * Continue to hold furosemide and lisinopril * Creatinine has improved from 3.0-->1.9 following 1L 0.9NS yesterday * I&O's have been essentially matched last 24 hours * Will provide 500 cc 0.9 normal saline IV x 1 and monitor BMP, UO * 09/13/24 renal US - no hydronephrosis * Electrolyte balance is acceptable. No acute indication for HD at this time * Monitor BMP, UO (2) CKD (chronic kidney disease) stage 3, GFR 30-59 ml/min: Plan: * CKD stage G3b/A2 (moderate impairment). Baseline Cr has been 1.6 w/ EGFR 38 cc/minute dating back to 2019. Outpatient evaluation revealed a benign urine sediment. UACR 0.5. Renal impairment has been attributed to microvascular disease and chronic GAONA related to BPH (3) COPD exacerbation: Plan: * Respiratory BioFire negative * Azotemia in part related to steroid therapy * Continue aggressive nebulizer therapy * Continue cefepime and doxycycline therapy (4) Dementia: Plan: * Exacerbated by [place] * Will ask industrial staff nurse to contact biomed and family to obtain new batteries for patient's hearing aid Admission and Anticipated Discharge Date Admission Date: September 12, 2024 Subjective Mr. Dueñas was evaluated in his hospital room this morning. He was breathing comfortably on RA but still has expiratory wheezing. His primary concern is that the batteries on his hearing aid have failed and he is extremely [place] Review of Systems Constitutional: no fever Eyes: no problem reported Ear, Nose, Mouth, Throat: no problem reported Respiratory: + wheezing Cardiovascular: no chest pain Gastrointestinal: no abdominal pain, no nausea, no vomiting and no diarrhea/loose stools Genitourinary: no dysuria, no hematuria or no flank pain Integumentary: no rash Physical Exam Constitutional: not in distress Eyes: PERRL, conjunctivae normal, anicteric sclerae ENMT: Mouth: + dry oral mucous membranes Neck: trachea midline, no thyromegaly Respiratory: normal respiratory effort and able to speak in complete sentences; no respiratory distress Auscultation: + wheezes and + abnormal I/E ratio Cardiovascular: Rate/Rhythm: + irregularly irregular Gastrointestinal (Abdomen): normal bowel sounds, soft, nontender, no hepatosplenomegaly Musculoskeletal: Extremities: no cyanosis Skin: no rashes, warm and dry + turgor decreased Neurologic: awake; not confused Results & Data Vital Signs (Past 12 Hours) Vital Signs Temp Pulse Resp BP Pulse Ox O2 Del Method O2 Flow Rate 09/15/24 08:14 36.7 C 75 17 143/58 H 94 Nasal Cannula 2 09/15/24 08:00 Nasal Cannula 2 09/15/24 07:18 77 18 85 L Room Air 09/15/24 03:00 36.7 C 80 19 161/91 H 95 Nasal Cannula 3 09/14/24 22:00 36.6 C 82 21 161/96 H 94 Nasal Cannula 3 Laboratory Results Laboratory Results - last 24 hr 09/14/24 09/14/24 09/14/24 11:55 16:55 20:31 WBC RBC Hgb Hct MCV MCH MCHC RDW Std Deviation RDW Coeff of Gerri Plt Count MPV Immature Gran % (Auto) Neut % (Auto) Lymph % (Auto) [place] % (Auto) Eos % (Auto) Baso % (Auto) Neut # (Auto) Lymph # (Auto) [place] # (Auto) Eos # (Auto) Baso # (Auto) Immature Gran # (Auto) Absolute Nucleated RBC Nucleated RBC % (auto) Sodium Potassium Chloride Carbon Dioxide Anion Gap BUN Creatinine Est Cr Clr Drug Dosing eGFR BUN/Creatinine Ratio Glucose POC Glucose 192 H 187 H 238 H Calcium Magnesium Total Bilirubin AST ALT Alkaline Phosphatase Total Protein Albumin Globulin Albumin/Globulin Ratio 09/15/24 09/15/24 05:26 08:13 WBC 10.09 RBC 2.91 L Hgb 8.8 L Hct 26.6 L MCV 91.4 MCH 30.2 MCHC 33.1 RDW Std Deviation 49.1 H RDW Coeff of Gerri 14.6 H Plt Count 175 MPV 11.9 Immature Gran % (Auto) 2.7 Neut % (Auto) 85.7 Lymph % (Auto) 5.1 [place] % (Auto) 6.2 Eos % (Auto) 0.0 Baso % (Auto) 0.3 Neut # (Auto) 8.65 H Lymph # (Auto) 0.51 L [place] # (Auto) 0.63 H Eos # (Auto) 0.00 Baso # (Auto) 0.03 Immature Gran # (Auto) 0.27 H Absolute Nucleated RBC 0.02 Nucleated RBC % (auto) 0.2 Sodium 140 Potassium 3.6 Chloride 104 Carbon Dioxide 25 Anion Gap 11 BUN 102 H Creatinine 1.99 H D Est Cr Clr Drug Dosing 27.0 eGFR 31.90 BUN/Creatinine Ratio 51.3 H Glucose 179 H POC Glucose 188 H Calcium 9.2 Magnesium 2.6 H Total Bilirubin 0.5 AST 29 ALT 16 Alkaline Phosphatase 81 Total Protein 6.3 Albumin 3.0 L Globulin 3.3 Albumin/Globulin Ratio 0.9 PG Care Time/CCT Total # of Minutes Spent Total Time Spent with Patient: Total time spent is greater than 50% in coordination of care (as documented) at patient's floor/unit and/or counseling patient: Coding Level of Care Code 96430 SUB INP/OBS CARE 3/50MIN Diagnoses Acute kidney injury N17.9 CKD (chronic kidney disease) stage 3, GFR 30-59 ml/min N18.30 COPD exacerbation J44.1 Dementia F03.90
[2024-09-15] MEDS: predniSONE 20 MG TAB PO SCH (09:17)
[2024-09-15] MEDS: SODIUM CHLORIDE 0.9% 500 ML IV SCH (11:49)
--- NOTE | 2024-09-15 16:58 | Hospitalist Progress Note ---
Date of Service September 15, 2024 Assessment & Plan (1) Acute respiratory failure with hypoxia: Plan: Resolved. He is now on room air. (2) Pneumonia involving right lung: Plan: No pathogen yet isolated. Continue cefepime and doxycycline, day 3. Repeat chest x-ray, PA and left lateral, tomorrow September 16 (3) Acute worsening of stage 3 chronic kidney disease: Plan: Monitor intake and output. Serial labs. Lasix and SIRIA inhibitor are on hold. Appreciate nephrology consultation recommendations. (4) COPD exacerbation: Plan: Improving. Continue treatment for suspected right lower lobe pneumonia. Nebulizer treatments as needed. (5) Atrial fibrillation, permanent: Plan: Continue current medical management. Continue Eliquis. Telemetry (6) Diabetes mellitus: Plan: Diet has been advanced to diabetic diet. Sliding scale coverage as needed. Plan To be determined. OT and PT assessments requested Admission and Anticipated Discharge Date Admission Date: September 12, 2024 Subjective Alert and pleasant. Hard of hearing though. Creatinine improved to 1.99. Continue IV fluids for now. Diet has been advanced to ADA diet. Will repeat chest x-ray, PA and left lateral, tomorrow, September 16. He remains on cefepime and doxycycline, day 3. Known ejection fraction of 20% but no overt CHF at this time. Nephrology consultation appreciated. Lasix and SIRIA inhibitor are on hold. Renal ultrasound done previously this admission is negative for obstruction or hydronephrosis. He is now 91% oxygen saturation on room air. Review of Systems 2 Review of Systems: Constitutionalno fever or chills ENTno blurred vision, no double vision, no epistaxis, no sore throat. Hard of hearing Respiratorynonproductive cough. Shortness of breath with exertion. Denies wheezing Cardiacno palpitations, no chest pain, no syncope [place]ora nausea, vomiting, diarrhea, melena, hematochezia GUno urinary retention, no urinary incontinence, no dysuria, no hematuria Musculoskeletalno joint pain, no muscle tenderness Skinno bruising, no rashes, no pruritus Neurono isolated weakness, no paresthesia, no weakness Psychno depression, no anxiety Physical Exam 2 Physical Exam: General-alert and oriented x3, no fever, no chills HEENT-head atraumatic and normocephalic, pupils equal and reactive to light, extraocular muscles intact. Hard of hearing Neck-no lymphadenopathy or thyromegaly, trachea midline Chest-diminished breath sounds bilaterally. Scattered rhonchi. No overt wheezing. No inspiratory rales. No dullness to percussion. Cardiac-irregular rhythm. Controlled rate. Normal S1 and S2 Abdomen-normal bowel sounds, no hepatosplenomegaly Extremities-no cyanosis, clubbing, or edema Neuro-cranial nerves II through XII intact, motor and sensory function within normal limits, strength symmetrical, no focal deficits Psych-normal affect, normal mood Results & Data Results & Data Vital Signs (Past 12 Hours) Vital Signs Temp Pulse Resp BP Pulse Ox O2 Del Method O2 Flow Rate 09/15/24 16:50 36.4 C L 91 H 18 161/74 H 93 Nasal Cannula 09/15/24 15:41 70 18 91 Room Air 09/15/24 11:30 36.5 C 71 18 156/56 H 90 Nasal Cannula 2 09/15/24 11:03 63 18 91 Room Air 09/15/24 08:14 36.7 C 75 17 143/58 H 94 Nasal Cannula 2 09/15/24 08:00 Nasal Cannula 2 09/15/24 07:18 77 18 85 L Room Air Laboratory Results 09/15/24 05:26 09/15/24 05:26 PG Care Time/CCT Total # of Minutes Spent Total Time Spent with Patient: Total time spent is greater than 50% in coordination of care (as documented) at patient's floor/unit and/or counseling patient: Coding Level of Care Code 23513 SUB INP/OBS CARE 3/50MIN Diagnoses Acute respiratory failure with hypoxia J96.01 Pneumonia involving right lung J18.9 Acute worsening of stage 3 chronic kidney disease N18.30 COPD exacerbation J44.1 Atrial fibrillation, permanent I48.21 Diabetes mellitus E11.9
[2024-09-16 06:09] LABS: Basophils # (auto) 0.01 K/uL (0.00-0.20); Basophils % (auto) 0.1 %; Eosinophils # (auto) 0.01 K/uL (0.00-0.50); Eosinophils % (auto) 0.1 %; Hematocrit (blood only) 27.3 % (42.0-52.0); Hemoglobin 9.3 g/dl (14.0-18.0); Immature Granulocytes # (auto) 0.28 K/uL (0.01-0.20); Immature Granulocytes % (auto) 2.6 %; Lymphocytes # (auto) 0.79 K/uL (1.20-3.40); Lymphocytes % (auto) 7.5 %; Mean Corpuscular Hemoglobin 30.9 pg (25.0-34.0); Mean Corpuscular Hgb Conc 34.1 g/dL (32.0-36.0); Mean Corpuscular Volume 90.7 fL (80.0-100.0); Monocytes % (auto) 7.6 %; Neutrophils # (auto) 8.68 K/uL (1.40-6.50); Neutrophils % (auto) 82.1 %; Nucleated RBC # (auto) 0.02 K/uL (0.00-0.12); Nucleated RBC % (auto) 0.2 %; Platelet Count 186 K/uL (130-400); RDW Coefficient of Variation 14.6 % (11.5-14.5); RDW Standard Deviation 48.5 fL (36.4-46.3); Red Blood Count 3.01 M/uL (4.70-6.10); White Blood Count 10.57 K/ul (4.8-10.8)
[2024-09-16 06:27] LABS: BUN Creatinine Ratio 52.8 (10-20); Creatinine Clr Calc Pharmacy 33.8 ml/min; Potassium 3.7 mmol/L (3.5-5.1)
--- NOTE | 2024-09-16 08:47 | Nephrology Progress Note ---
Date of Service September 16, 2024 Assessment & Plan (1) Acute kidney injury: Plan: * OSVALDO on CKD due to dehydration in the setting of SIRIA inhibitor therapy - resolved * Continue to hold furosemide and lisinopril * Creatinine has improved from 3.0-->1.59 with gentle hydration * 09/13/24 renal US - no hydronephrosis * Electrolyte balance remains acceptable * Encourage oral hydration * Monitor BMP, UO (2) CKD (chronic kidney disease) stage 3, GFR 30-59 ml/min: Plan: * CKD stage G3b/A2 (moderate impairment). Baseline Cr has been 1.6 w/ EGFR 38 cc/minute dating back to 2019. Outpatient evaluation revealed a benign urine sediment. UACR 0.5. Renal impairment has been attributed to microvascular disease and chronic GAONA related to BPH (3) COPD exacerbation: Plan: * Respiratory BioFire negative * Azotemia in part related to steroid therapy * Continue aggressive nebulizer therapy * Continue cefepime and doxycycline therapy (4) Dementia: Plan: * Exacerbated by [facility] Admission and Anticipated Discharge Date Admission Date: September 12, 2024 Subjective Mr. Dueñas was evaluated in his hospital room this morning. He was breathing comfortably but still has expiratory wheezing. Review of Systems Constitutional: no fever Eyes: no problem reported Ear, Nose, Mouth, Throat: no problem reported Respiratory: + wheezing Cardiovascular: no chest pain Gastrointestinal: no abdominal pain, no nausea, no vomiting and no diarrhea/loose stools Genitourinary: no dysuria, no hematuria or no flank pain Integumentary: no rash Physical Exam Constitutional: not in distress Eyes: PERRL, conjunctivae normal, anicteric sclerae ENMT: Mouth: + dry oral mucous membranes Neck: trachea midline, no thyromegaly Respiratory: normal respiratory effort and able to speak in complete sentences; no respiratory distress Auscultation: + wheezes and + abnormal I/E ratio Cardiovascular: Rate/Rhythm: + irregularly irregular Gastrointestinal (Abdomen): normal bowel sounds, soft, nontender, no hepatosplenomegaly Musculoskeletal: Extremities: no cyanosis Skin: no rashes, warm and dry + turgor decreased Neurologic: awake; not confused Results & Data Vital Signs (Past 12 Hours) Vital Signs Temp Pulse Pulse Resp BP Pulse Ox O2 Del Method 09/16/24 08:27 36.7 C 86 18 167/71 H 90 Room Air 09/16/24 07:25 64 16 90 Room Air 09/16/24 03:00 36.7 C 93 H 18 172/69 H 90 Nasal Cannula 09/15/24 23:09 78 09/15/24 22:00 36.7 C 84 19 173/68 H 93 Nasal Cannula 09/15/24 20:52 75 18 93 Nasal Cannula O2 Flow Rate 09/16/24 08:27 09/16/24 07:25 09/16/24 03:00 2 09/15/24 23:09 09/15/24 22:00 2 09/15/24 20:52 2 Laboratory Results Laboratory Results - last 24 hr 09/15/24 09/15/24 09/15/24 11:53 17:12 21:05 WBC RBC Hgb Hct MCV MCH MCHC RDW Std Deviation RDW Coeff of Gerri Plt Count MPV Immature Gran % (Auto) Neut % (Auto) Lymph % (Auto) [place] % (Auto) Eos % (Auto) Baso % (Auto) Neut # (Auto) Lymph # (Auto) [place] # (Auto) Eos # (Auto) Baso # (Auto) Immature Gran # (Auto) Absolute Nucleated RBC Nucleated RBC % (auto) Sodium Potassium Chloride Carbon Dioxide Anion Gap BUN Creatinine Est Cr Clr Drug Dosing eGFR BUN/Creatinine Ratio Glucose POC Glucose 183 H 174 H 189 H Calcium 09/16/24 09/16/24 05:55 08:25 WBC 10.57 RBC 3.01 L Hgb 9.3 L Hct 27.3 L MCV 90.7 MCH 30.9 MCHC 34.1 RDW Std Deviation 48.5 H RDW Coeff of Gerri 14.6 H Plt Count 186 MPV 11.0 Immature Gran % (Auto) 2.6 Neut % (Auto) 82.1 Lymph % (Auto) 7.5 [place] % (Auto) 7.6 Eos % (Auto) 0.1 Baso % (Auto) 0.1 Neut # (Auto) 8.68 H Lymph # (Auto) 0.79 L [place] # (Auto) 0.80 H Eos # (Auto) 0.01 Baso # (Auto) 0.01 Immature Gran # (Auto) 0.28 H Absolute Nucleated RBC 0.02 Nucleated RBC % (auto) 0.2 Sodium 140 Potassium 3.7 Chloride 106 Carbon Dioxide 24 Anion Gap 10 BUN 84 H Creatinine 1.59 H D Est Cr Clr Drug Dosing 33.8 eGFR 41.76 BUN/Creatinine Ratio 52.8 H Glucose 152 H POC Glucose 153 H Calcium 9.0 PG Care Time/CCT Total # of Minutes Spent Total Time Spent with Patient: Total time spent is greater than 50% in coordination of care (as documented) at patient's floor/unit and/or counseling patient: Coding Level of Care Code 82978 SUB INP/OBS CARE 3/50MIN Diagnoses Acute kidney injury N17.9 CKD (chronic kidney disease) stage 3, GFR 30-59 ml/min N18.30 COPD exacerbation J44.1 Dementia F03.90
--- NOTE | 2024-09-16 10:17 | XRay Report ---
XR chest 2V PA/lateral CLINICAL HISTORY: right PNA TECHNIQUE: 2 views of the chest were obtained. Comparison: Comparison is made to chest radiograph 09/12/2024 FINDINGS: Lines and tubes are stable. Cardiomegaly is noted. The aortic arch is calcified. Bilateral lower lung predominant airspace opacities are seen. No evidence of pleural effusion or pneumothorax. IMPRESSION: Bilateral lower lung predominant airspace opacities which may represent atelectasis, pneumonia, and/o r aspiration. ACT 112: Negative or not required by law. Electronically signed by: Dereck Osorio M.D. 09/16/2024 10:16 AM
--- NOTE | 2024-09-16 17:04 | Hospitalist Progress Note ---
Date of Service September 16, 2024 Assessment & Plan (1) Acute respiratory failure with hypoxia: Plan: Resolved. (2) Pneumonia involving right lung: (3) Acute worsening of stage 3 chronic kidney disease: (4) COPD exacerbation: (5) Atrial fibrillation, permanent: (6) Diabetes mellitus: Plan The patient is an 88-year-old male with past medical history including CAD, presence of cardiac pacemaker, anxiety, long-term use of anticoagulant, cognitive decline, diabetes mellitus, permanent atrial fibrillation, CKD stage III, BPH with LUTS. His pneumonia and osvaldo are resolving anticipate dc on 09/17 Pneumonia involving right middle and right lower lobe-improving liekly dc on po doxycycline BioFire testing negative 40 mg IV every 8 hours, will transition to po Cefepime renal dose adjusted Doxycycline 100 mg IV 12 hours Mucinex 1200 mg p.o. every 12 hours Duonebs every 4 hours while awake and every 2 hours when necessary. Permanent atrial fibrillation/hypertension/history of CHF/PAD-Hfr EF 20-25% Continue apixaban, atorvastatin, Pletal, isosorbide mononitrate, labetalol Hold calcium chloride, furosemide, lisinopril OSVALDO with CKD3 resolving suspect ATN =/- obstructive uropathy, BPH with LUTS- hold renal toxic meds, consider Castanon, Continue tamsulosin Hypothyroidism- Continue levothyroxine Hyperglycemia-history of diabetes Glucose 168 on admission No diagnosis of diabetes or medications to treat as such Place on Accu-Cheks with NovoLog SSI Admission and Anticipated Discharge Date Admission Date: September 12, 2024 Subjective pt is much better oriented x 3 little respiratory distress, moving about room Results & Data Results & Data Vital Signs (Past 12 Hours) Vital Signs Temp Pulse Resp BP Pulse Ox O2 Del Method O2 Flow Rate 09/16/24 15:22 75 18 95 Nasal Cannula 2 09/16/24 14:50 97.7 F 82 18 154/71 H 96 Nasal Cannula 2 09/16/24 11:47 98.1 F 81 18 167/77 H 92 Nasal Cannula 2 09/16/24 10:56 76 16 99 Nasal Cannula 2 09/16/24 08:35 Nasal Cannula 2 09/16/24 08:27 98.1 F 86 18 167/71 H 90 Room Air 09/16/24 07:25 64 16 90 Room Air Laboratory Results review cbc review chemistry PG Care Time/CCT Total # of Minutes Spent Total Time Spent with Patient: Total time spent is greater than 50% in coordination of care (as documented) at patient's floor/unit and/or counseling patient: Coding Level of Care Code 66762 SUB INP/OBS CARE 3/50MIN Diagnoses Acute respiratory failure with hypoxia J96.01 Pneumonia involving right lung J18.9 Acute worsening of stage 3 chronic kidney disease N18.30 COPD exacerbation J44.1 Atrial fibrillation, permanent I48.21 Diabetes mellitus E11.9
--- NOTE | 2024-09-17 08:55 | Nephrology Progress Note ---
Date of Service September 17, 2024 Assessment & Plan (1) Acute kidney injury: Plan: * OSVALDO on CKD due to dehydration in the setting of SIRIA inhibitor therapy - resolved * Continue to hold furosemide and lisinopril * Creatinine has improved from 3.0-->1.59 with gentle hydration * 09/13/24 renal US - no hydronephrosis * Awaiting results of am labs today * Encourage oral hydration * Monitor BMP, UO (2) CKD (chronic kidney disease) stage 3, GFR 30-59 ml/min: Plan: * CKD stage G3b/A2 (moderate impairment). Baseline Cr has been 1.6 w/ EGFR 38 cc/minute dating back to 2019. Outpatient evaluation revealed a benign urine sediment. UACR 0.5. Renal impairment has been attributed to microvascular disease and chronic GAONA related to BPH (3) COPD exacerbation: Plan: * Respiratory BioFire negative * Azotemia in part related to steroid therapy * Consider changing to bronchodilator therapy and oral doxycycline (4) Dementia: Plan: * Exacerbated by [facility] Admission and Anticipated Discharge Date Admission Date: September 12, 2024 Subjective Mr. Dueñas was evaluated in his hospital room this morning. He was working w/ PT and ambulating in his room with the use of a walker Review of Systems Constitutional: no fever Eyes: no problem reported Ear, Nose, Mouth, Throat: no problem reported Respiratory: + wheezing Cardiovascular: no chest pain Gastrointestinal: no abdominal pain, no nausea, no vomiting and no diarrhea/loose stools Genitourinary: no dysuria, no hematuria or no flank pain Integumentary: no rash Physical Exam Constitutional: not in distress Eyes: PERRL, conjunctivae normal, anicteric sclerae ENMT: Mouth: + dry oral mucous membranes Neck: trachea midline, no thyromegaly Respiratory: normal respiratory effort and able to speak in complete sentences; no respiratory distress Auscultation: + wheezes (improved) Cardiovascular: Rate/Rhythm: + irregularly irregular Gastrointestinal (Abdomen): normal bowel sounds, soft, nontender, no hepatosplenomegaly Musculoskeletal: Extremities: no cyanosis Skin: no rashes, warm and dry + turgor decreased Neurologic: awake; not confused Results & Data Vital Signs (Past 12 Hours) Vital Signs Temp Pulse Pulse Resp BP Pulse Ox O2 Del Method 09/17/24 07:11 71 16 93 Nasal Cannula 09/17/24 07:01 36.7 C 77 18 154/62 H 93 Nasal Cannula 09/17/24 02:51 36.7 C 65 18 155/66 H 91 Nasal Cannula 09/16/24 22:59 36.7 C 98 H 21 166/71 H 93 Nasal Cannula 09/16/24 22:22 79 O2 Flow Rate 09/17/24 07:11 2 09/17/24 07:01 2 09/17/24 02:51 2 09/16/24 22:59 2 09/16/24 22:22 Laboratory Results Laboratory Results - last 24 hr 09/16/24 09/16/24 09/16/24 12:24 17:00 20:41 POC Glucose 175 H 177 H 188 H 09/17/24 07:55 POC Glucose 166 H Laboratory Results - last 24 hr 09/16/24 09/16/24 09/16/24 12:24 17:00 20:41 POC Glucose 175 H 177 H 188 H 09/17/24 07:55 POC Glucose 166 H PG Care Time/CCT Total # of Minutes Spent Total Time Spent with Patient: Total time spent is greater than 50% in coordination of care (as documented) at patient's floor/unit and/or counseling patient: Coding Level of Care Code 75943 SUB INP/OBS CARE 3/50MIN Diagnoses Acute kidney injury N17.9 CKD (chronic kidney disease) stage 3, GFR 30-59 ml/min N18.30 COPD exacerbation J44.1 Dementia F03.90
[2024-09-17 11:07] LABS: Basophils # (auto) 0.04 K/uL (0.00-0.20); Basophils % (auto) 0.2 %; Eosinophils # (auto) 0.17 K/uL (0.00-0.50); Eosinophils % (auto) 1.1 %; Hematocrit (blood only) 29.3 % (42.0-52.0); Hemoglobin 9.8 g/dl (14.0-18.0); Immature Granulocytes # (auto) 0.62 K/uL (0.01-0.20); Immature Granulocytes % (auto) 3.8 %; Lymphocytes # (auto) 1.05 K/uL (1.20-3.40); Lymphocytes % (auto) 6.5 %; Mean Corpuscular Hemoglobin 31.1 pg (25.0-34.0); Mean Corpuscular Hgb Conc 33.4 g/dL (32.0-36.0); Mean Platelet Volume 11.4 fL (9.4-12.4); Monocytes # (auto) 0.73 K/uL (0.11-0.59); Monocytes % (auto) 4.5 %; Neutrophils # (auto) 13.56 K/uL (1.40-6.50); Neutrophils % (auto) 83.9 %; Platelet Count 219 K/uL (130-400); RDW Coefficient of Variation 14.9 % (11.5-14.5); RDW Standard Deviation 51.1 fL (36.4-46.3); Red Blood Count 3.15 M/uL (4.70-6.10); White Blood Count 16.17 K/ul (4.8-10.8)
[2024-09-17 11:15] LABS: BUN Creatinine Ratio 39.5 (10-20); Calcium 9.2 mg/dl (8.6-10.3); Creatinine Clr Calc Pharmacy 41.7 ml/min; Potassium 3.4 mmol/L (3.5-5.1)
[2024-09-17] MEDS ORDERED: levoFLOXacin 500 MG TAB PO STA (13:38)
--- NOTE | 2024-09-17 13:41 | Hospitalist Progress Note ---
Date of Service September 17, 2024 Assessment & Plan (1) Acute respiratory failure with hypoxia: Plan: Resolved. (2) Pneumonia involving right lung: (3) Acute worsening of stage 3 chronic kidney disease: (4) COPD exacerbation: (5) Atrial fibrillation, permanent: (6) Diabetes mellitus: Plan The patient is an 88-year-old male with past medical history including CAD, presence of cardiac pacemaker, anxiety, long-term use of anticoagulant, cognitive decline, diabetes mellitus, permanent atrial fibrillation, CKD stage III, BPH with LUTS. His pneumonia and osvaldo are resolving anticipate dc on 09/17 Pneumonia involving right middle and right lower lobe, some exertional hypoxia, will change jese levaquin prolongued QT is challenge as it ventricullarly paced on ecg BioFire testing negative stop po steroids Mucinex 1200 mg p.o. every 12 hours Duonebs 2 hours when necessary. Permanent atrial fibrillation/hypertension/history of CHF/PAD-Hfr EF 20-25% Continue apixaban, atorvastatin, Pletal, isosorbide mononitrate, labetalol some exertional hypoxia, typically on lasix 80 bid, one dose lasix 40 mg in afternoon 09/17/24 and check renal function in am OSVALDO with CKD3 resolving suspect ATN =/- obstructive uropathy, BPH with LUTS- Continue tamsulosin Hypothyroidism- Continue levothyroxine Hyperglycemia-history of diabetes Glucose 168 on admission No diagnosis of diabetes or medications to treat as such Place on Accu-Cheks with NovoLog SSI updated 09/17/24 Admission and Anticipated Discharge Date Admission Date: September 12, 2024 Subjective pt is pleasant wants to go home, has had some exertional hypoxia, likely mild fluid overload with holding diuretics for last few days has HFref 20-25% Physical Exam Physical Exam: pt with some rales at based, lower sats with walking cardiac is regular Results & Data Results & Data Vital Signs (Past 12 Hours) Vital Signs Temp Pulse Pulse Resp BP Pulse Ox Pulse Ox 09/17/24 12:26 90 09/17/24 11:16 97.5 F L 79 18 168/77 H 93 09/17/24 10:48 15 96 09/17/24 09:00 09/17/24 09:00 09/17/24 08:00 89 09/17/24 07:11 71 16 93 09/17/24 07:01 98.1 F 77 18 154/62 H 93 09/17/24 02:51 98.1 F 65 18 155/66 H 91 Pulse Ox Pulse Ox Pulse Ox O2 Del Method O2 Del Method O2 Flow Rate O2 Flow Rate 09/17/24 12:26 92 89 L 2 09/17/24 11:16 Room Air 09/17/24 10:48 Nasal Cannula 2 09/17/24 09:00 Nasal Cannula 2 09/17/24 09:00 93 Nasal Cannula 09/17/24 08:00 09/17/24 07:11 Nasal Cannula 2 09/17/24 07:01 Nasal Cannula 2 09/17/24 02:51 Nasal Cannula 2 O2 Flow Rate O2 Flow Rate O2 Flow Rate 09/17/24 12:26 2 2 09/17/24 11:16 09/17/24 10:48 09/17/24 09:00 09/17/24 09:00 2 09/17/24 08:00 09/17/24 07:11 09/17/24 07:01 09/17/24 02:51 Laboratory Results review cbc with leukocytosis maybe from steroids reviewed chemistry PG Care Time/CCT Total # of Minutes Spent Total Time Spent with Patient: Total time spent is greater than 50% in coordination of care (as documented) at patient's floor/unit and/or counseling patient: Coding Level of Care Code 53852 SUB INP/OBS CARE 3/50MIN Diagnoses Acute respiratory failure with hypoxia J96.01 Pneumonia involving right lung J18.9 Acute worsening of stage 3 chronic kidney disease N18.30 COPD exacerbation J44.1 Atrial fibrillation, permanent I48.21 Diabetes mellitus E11.9
[2024-09-17] MEDS: FUROSEMIDE 40 MG/4 ML VIAL IV ONE (13:58)
[2024-09-17] MEDS: levoFLOXacin 750 MG TAB PO SCH (14:16)
--- NOTE | 2024-09-17 14:31 | XRay Report ---
XR chest 1V portable CLINICAL HISTORY: hypoxia eval pnx TECHNIQUE: Single frontal radiograph of the chest was obtained. Comparison: Comparison is made to chest radiograph 09/16/2024 FINDINGS: Median sternotomy wires are unchanged. Stable pacemaker. Cardiomegaly is noted. The aortic arch is ca lcified. Bilateral lower lung predominant airspace opacities are seen. Pulmonary vascular prominence is seen. No evidence of pleural effusion or pneumothorax. IMPRESSION: Stable airspace opacities with pulmonary vascular prominence which may reflect mild volume overload. ACT 112: Negative or not required by law. Electronically signed by: Dereck Osorio M.D. 09/17/2024 2:29 PM
[2024-09-17] MEDS ORDERED: DOXYCYCLINE HYCLATE 100 MG CAP PO SCH (21:00)
[2024-09-17] MEDS: ACETAMINOPHEN 325 MG TAB PO PRN (21:02)
[2024-09-17 22:54] VITALS: TEMP 98.1
[2024-09-18 06:31] LABS: Basophils # (auto) 0.05 K/uL (0.00-0.20); Basophils % (auto) 0.3 %; Eosinophils % (auto) 1.7 %; Hematocrit (blood only) 31.3 % (42.0-52.0); Hemoglobin 10.5 g/dl (14.0-18.0); Immature Granulocytes # (auto) 0.74 K/uL (0.01-0.20); Immature Granulocytes % (auto) 4.2 %; Lymphocytes # (auto) 1.22 K/uL (1.20-3.40); Lymphocytes % (auto) 6.9 %; Mean Corpuscular Hgb Conc 33.5 g/dL (32.0-36.0); Mean Corpuscular Volume 92.3 fL (80.0-100.0); Mean Platelet Volume 11.4 fL (9.4-12.4); Monocytes # (auto) 0.54 K/uL (0.11-0.59); Monocytes % (auto) 3.1 %; Neutrophils # (auto) 14.76 K/uL (1.40-6.50); Neutrophils % (auto) 83.8 %; Nucleated RBC # (auto) 0.02 K/uL (0.00-0.12); Nucleated RBC % (auto) 0.1 %; Platelet Count 236 K/uL (130-400); RDW Coefficient of Variation 14.8 % (11.5-14.5); RDW Standard Deviation 50.4 fL (36.4-46.3); Red Blood Count 3.39 M/uL (4.70-6.10); White Blood Count 17.61 K/ul (4.8-10.8)
[2024-09-18 06:49] LABS: BUN Creatinine Ratio 36.1 (10-20); Creatinine Clr Calc Pharmacy 49.7 ml/min; Potassium 3.5 mmol/L (3.5-5.1)
[2024-09-18 07:16] VITALS: RESP 18; O2SAT 95
--- NOTE | 2024-09-18 09:15 | Nephrology Progress Note ---
Date of Service September 18, 2024 Assessment & Plan (1) Acute kidney injury: Plan: * OSVALDO on CKD due to dehydration in the setting of SIRIA inhibitor therapy - resolved * 09/13/24 renal US - no hydronephrosis * Will resume lisinopril 20 mg every morning (outpatient dose) * Agree w/ starting furosemide 40 mg every morning (outpatient dose was twice daily) * Monitor BMP, UO (2) CKD (chronic kidney disease) stage 3, GFR 30-59 ml/min: Plan: * CKD stage G3b/A2 (moderate impairment). Baseline Cr has been 1.6 w/ EGFR 38 cc/minute dating back to 2019. Outpatient evaluation revealed a benign urine sediment. UACR 0.5. Renal impairment has been attributed to microvascular disease and chronic GAONA related to BPH (3) COPD exacerbation: Plan: * Respiratory BioFire negative * Azotemia in part related to steroid therapy * Now on levofloxacin therapy (4) Dementia: Plan: * Exacerbated by [facility] Admission and Anticipated Discharge Date Admission Date: September 12, 2024 Subjective Mr. Dueñas was evaluated in his hospital room this morning. He was breathing comfortably flat in bed on RA. Mr. Dueñas denied dyspnea. He is hopeful to return home soon. Review of Systems Constitutional: no fever Eyes: no problem reported Ear, Nose, Mouth, Throat: no problem reported Respiratory: no dyspnea and no wheezing Cardiovascular: no chest pain Gastrointestinal: no abdominal pain, no nausea, no vomiting and no diarrhea/loose stools Genitourinary: no dysuria, no hematuria or no flank pain Integumentary: no rash Physical Exam Constitutional: not in distress Eyes: PERRL, conjunctivae normal, anicteric sclerae ENMT: Mouth: + dry oral mucous membranes Neck: trachea midline, no thyromegaly Respiratory: normal respiratory effort and able to speak in complete sentences; no respiratory distress Auscultation: + wheezes (improved) Cardiovascular: Rate/Rhythm: + irregularly irregular Gastrointestinal (Abdomen): normal bowel sounds, soft, nontender, no hepatosplenomegaly Musculoskeletal: Extremities: no cyanosis Skin: no rashes, warm and dry + turgor decreased Neurologic: awake; not confused Results & Data Vital Signs (Past 12 Hours) Vital Signs Temp Pulse Pulse Resp BP BP Pulse Ox 09/18/24 07:15 36.7 C 74 18 184/75 H 95 09/18/24 02:26 36.7 C 71 16 155/64 H 97 09/17/24 22:53 36.7 C 85 18 155/67 H 92 09/17/24 21:44 81 O2 Del Method O2 Flow Rate 09/18/24 07:15 Nasal Cannula 1 09/18/24 02:26 Nasal Cannula 2 09/17/24 22:53 Nasal Cannula 2 09/17/24 21:44 Laboratory Results Laboratory Results - last 24 hr 09/17/24 09/17/24 09/17/24 10:39 11:54 16:47 WBC 16.17 H RBC 3.15 L Hgb 9.8 L Hct 29.3 L MCV 93.0 MCH 31.1 MCHC 33.4 RDW Std Deviation 51.1 H RDW Coeff of Gerri 14.9 H Plt Count 219 MPV 11.4 Immature Gran % (Auto) 3.8 Neut % (Auto) 83.9 Lymph % (Auto) 6.5 [place] % (Auto) 4.5 Eos % (Auto) 1.1 Baso % (Auto) 0.2 Neut # (Auto) 13.56 H Lymph # (Auto) 1.05 L [place] # (Auto) 0.73 H Eos # (Auto) 0.17 Baso # (Auto) 0.04 Immature Gran # (Auto) 0.62 H Absolute Nucleated RBC Nucleated RBC % (auto) Sodium 139 Potassium 3.4 L Chloride 106 Carbon Dioxide 28 Anion Gap 5 BUN 51 H D Creatinine 1.29 D Est Cr Clr Drug Dosing 41.7 eGFR 53.66 BUN/Creatinine Ratio 39.5 H Glucose 161 H POC Glucose 136 H 152 H Calcium 9.2 Magnesium 09/17/24 09/18/24 09/18/24 20:28 05:53 07:56 WBC 17.61 H RBC 3.39 L Hgb 10.5 L Hct 31.3 L MCV 92.3 MCH 31.0 MCHC 33.5 RDW Std Deviation 50.4 H RDW Coeff of Gerri 14.8 H Plt Count 236 MPV 11.4 Immature Gran % (Auto) 4.2 Neut % (Auto) 83.8 Lymph % (Auto) 6.9 [place] % (Auto) 3.1 Eos % (Auto) 1.7 Baso % (Auto) 0.3 Neut # (Auto) 14.76 H Lymph # (Auto) 1.22 [place] # (Auto) 0.54 Eos # (Auto) 0.30 Baso # (Auto) 0.05 Immature Gran # (Auto) 0.74 H Absolute Nucleated RBC 0.02 Nucleated RBC % (auto) 0.1 Sodium 139 Potassium 3.5 Chloride 105 Carbon Dioxide 26 Anion Gap 8 BUN 43 H Creatinine 1.19 Est Cr Clr Drug Dosing 49.7 eGFR 59.12 BUN/Creatinine Ratio 36.1 H Glucose 141 H POC Glucose 146 H 155 H Calcium 9.0 Magnesium 2.2 PG Care Time/CCT Total # of Minutes Spent Total Time Spent with Patient: Total time spent is greater than 50% in coordination of care (as documented) at patient's floor/unit and/or counseling patient: Coding Level of Care Code 64376 SUB INP/OBS CARE 3/50MIN Diagnoses Acute kidney injury N17.9 CKD (chronic kidney disease) stage 3, GFR 30-59 ml/min N18.30 COPD exacerbation J44.1 Dementia F03.90
[2024-09-18] MEDS: FUROSEMIDE 40 MG TAB PO SCH (09:30)
[2024-09-18] MEDS ORDERED: levoFLOXacin 500 MG TAB PO SCH (11:00)
[2024-09-18] MEDS ORDERED: lisinopril 40 MG TAB PO SCH (11:45)
[2024-09-18 11:52] VITALS: BP 155/64; PULSE 83
--- NOTE | 2024-09-18 17:21 | Discharge Summary ---
Discharge Summary Date of Service September 18, 2024 Principal Dx & Hospital Course #1 = Principal Diagnosis (1) Acute respiratory failure with hypoxia: Resolved. (2) Pneumonia involving right lung: (3) Acute worsening of stage 3 chronic kidney disease: (4) COPD exacerbation: (5) Atrial fibrillation, permanent: (6) Diabetes mellitus: Plan The patient is an 88-year-old male with past medical history including CAD, presence of cardiac pacemaker, anxiety, long-term use of anticoagulant, cognitive decline, diabetes mellitus, permanent atrial fibrillation, CKD stage III, BPH with LUTS. His pneumonia and osvaldo are resolving anticipate dc on 09/17 Pneumonia involving right middle and right lower lobe, some exertional hypoxia, will change to po levaquin complete additional 6 days BioFire testing negative stop po steroids Mucinex 1200 mg p.o. every 12 hours Duonebs 2 hours when necessary. Permanent atrial fibrillation/hypertension/history of CHF/PAD-Hfr EF 20-25% Continue apixaban, atorvastatin, Pletal, isosorbide mononitrate, labetalol some exertional hypoxia, typically on lasix 80 bid, one dose lasix 40 mg in afternoon 09/17/24 and home on 80 mg a day renal function is stable at time of discharge OSVALDO with CKD3 resolving, restarting home lasix suspect ATN =/- obstructive uropathy, BPH with LUTS- Continue tamsulosin Hypothyroidism- Continue levothyroxine Hyperglycemia-history of diabetes a1c is 7 Notes For Next Care Provider Holding lisinopril and reducing dose of Lasix at time of discharge. Kidney function has been stable reevaluate for reinstitution of lisinopril therapy Admission HPI Per Admitting Provider Patient is an 88-year-old male with past medical history including, atrial fibrillation, NSVT, frequent PVCs, BPH, gout, hypertension, cognitive decline, diabetes mellitus, long-term use of anticoagulation, CAD, presence of cardiac pacemaker and anxiety. Emergency department at the behest of his due to concerns regarding worsening shortness of breath, and inability to sleep at nighttime due to dyspnea. [place] any recent travels or sick exposures. Respiratory BioFire testing in the ED is negative. 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 Call non-emergency contact if: your symptoms worsen Follow-up/Referrals: Marcelino French, [Primary Care Provider] - Diet: Low Sodium (2gm) Martha Attending Provider Instructions: Call 911 and go to the Emergency Room if: * You have tightness or pain in your chest that does not go away with rest or Nitroglycerin * You are very short of breath even with rest Call your doctor if any of the following symptoms or problems start or get worse: * Shortness of breath or difficulty breathing * Wake up at night short of breath * Chest pain * Cough * Swelling of your hands, fee, or legs * More fatigued or tired with your normal activity * Palpitations - sudden fast heart beats WEIGHT * Weigh yourself every morning after using the bathroom. * Use the same scale. * Wear the same amount of clothing. * Write your weight down on your chart. * Call your doctor if you gain more than 2-3 pounds in 1-2 days. MEDICATIONS * Use this discharge instruction sheet for instructions. * Take your medications at the time your doctor ordered. * Do not skip a dose of your medicines. * If you miss a dose of medicine, take as soon as possible, but DO NOT DOUBLE A DOSE. * Read your medicine information when you get home. * Know all of the side effects of your medicine. * Call your doctor's office if you have any side effects. * Be sure all of your doctors know what medicine and herbs you take (including cold, flu, and herbal medicine). * Pain Medicine: If you do not get relief from your pain, please call your doctor for help. Take the following with you to your follow-up doctor appointments: * Weight Chart * Medication List * List of questions Do not drink excessive alcohol, beer or wine. [employer] Provider Instructions: we have reduced your lasix and potassium to once a day we are holding your lisinopril at this time discuss with your family doctor or Dr [place] about when to restart Pending Studies at Discharge: No Stand-Alone Forms: My [employer], Smoking Cessation Medications and DC Order Prescriptions: New levofloxacin 750 mg Tablet 750 mg PO Q48H Qty: 3 0RF Continued (DME) Wheeled Walker Misc See Rx Instructions .Route Qty: 1 0RF Rx Instructions: As directed omeprazole 20 mg capsule,delayed release(DR/EC) 20 mg PO DAILY Qty: 90 3RF calcium carbonate 500 mg calcium (1,250 mg) tablet 500 mg PO BID Qty: 60 0RF Rx Instructions: Unable to verify OTC meds at this date/time. cholecalciferol (vitamin D3) 50 mcg (2,000 unit) capsule 50 mcg PO DAILY Qty: 90 3RF Rx Instructions: Unable to verify OTC meds at this date/time. labetalol 100 mg tablet 100 mg PO BID Qty: 180 3RF levothyroxine 200 mcg tablet 200 mcg PO DAILY Qty: 90 3RF atorvastatin 20 mg tablet 20 mg PO DAILY Qty: 90 3RF famotidine 40 mg tablet 40 mg PO DAILY Qty: 90 3RF gemfibrozil 600 mg tablet 600 mg PO BID Qty: 180 3RF Eliquis 2.5 mg tablet 2.5 mg PO BID Qty: 180 3RF allopurinol 100 mg tablet 200 mg PO DAILY Qty: 180 3RF isosorbide mononitrate 60 mg tablet extended release 24 hr 60 mg PO DAILY Qty: 90 3RF tamsulosin 0.4 mg capsule 0.4 mg PO DAILY Qty: 90 3RF nitroglycerin 0.4 mg tablet, sublingual 0.4 mg SL Q5M PRN (Reason: chest pain) clindamycin HCl 150 mg capsule 600 mg PO DIRECTED PRN (Reason: PRIOR TO DENTAL APPOINTMENTS) [facility] mg-15 unit- 4.5 mg-2.5 mg Tablet,Chewable 1 tab PO DAILY Rx Instructions: Unable to verify OTC meds at this date/time. acetaminophen 650 mg tablet extended release 650 mg PO HS PRN (Reason: Pain) Rx Instructions: Unable to verify OTC meds at this date/time. loperamide 2 mg Capsule 2 mg PO DAILY Rx Instructions: Unable to verify OTC meds at this date/time. magnesium oxide 400 mg (241.3 mg magnesium) Tablet 400 mg PO BID Qty: 60 2RF Rx Instructions: Unable to verify OTC meds at this date/time. vitamins-lipotropics Tablet 1 tab PO DAILY PRN (Reason: PER PT LIST NEEDED) Rx Instructions: Unable to verify OTC meds at this date/time. Leonor's Restless Leg 3 tabs sublingual Q4H PRN (Reason: RESTLESS LEGS) Rx Instructions: Unable to verify OTC meds at this date/time. cilostazol 50 mg tablet 0 mg PO BID Rx Instructions: Last filled 03/28/24 x90 day supply. Original Directions: 50mg by mouth twice daily Changed potassium chloride 10 mEq tablet extended release 20 meq PO DAILY Qty: 360 3RF furosemide [Lasix] 80 mg tablet 0 mg PO DAILY Qty: 0 0RF Rx Instructions: Per pharmacy, MD never sent in new script when requested on 07/02/24. Unable to verify if pt is getting this from another pharmacy or splitting their currently tablets. Original Directions: 80mg by mouth twice daily. Held lisinopril 20 mg tablet 20 mg PO DAILY Qty: 90 2RF Hold Instructions: OSVALDO baclofen 10 mg tablet 10 mg PO HS Qty: 90 3RF Hold Instructions: Provider's Order Discharge Orders: Discharge Order (Routine); Ordered 09/18/24 Ordered By: Hong Blandon Admission Data Admit Date/Time: 09/12/24 07:01 Attending Provider: Hong Blandon Admit Provider: George Burnette Primary Care Provider: Marcelino French Other Providers: George Burnette; [place]; [facility] Fax Other Interventions: Discharge Summary Assessment (RN) Last Done: 09/18/24 11:51 Hospital Stay Data Consultations 09/12/24 06:39 ED Decision to Admit Stat 09/13/24 08:49 Consult Nephrology Routine Diagnostic Imagining Performed 09/13/24 08:49 US Renal Bladder [US renal/blad retro comp] Routine Pending Results Patient Have Any Pending Studies at Discharge: No Discharge Instructions Given to Patient (Per Discharging Provider) Call 911 and go to the Emergency Room if: * You have tightness or pain in your chest that does not go away with rest or Nitroglycerin * You are very short of breath even with rest Call your doctor if any of the following symptoms or problems start or get worse: * Shortness of breath or difficulty breathing * Wake up at night short of breath * Chest pain * Cough * Swelling of your hands, fee, or legs * More fatigued or tired with your normal activity * Palpitations - sudden fast heart beats WEIGHT * Weigh yourself every morning after using the bathroom. * Use the same scale. * Wear the same amount of clothing. * Write your weight down on your chart. * Call your doctor if you gain more than 2-3 pounds in 1-2 days. MEDICATIONS * Use this discharge instruction sheet for instructions. * Take your medications at the time your doctor ordered. * Do not skip a dose of your medicines. * If you miss a dose of medicine, take as soon as possible, but DO NOT DOUBLE A DOSE. * Read your medicine information when you get home. * Know all of the side effects of your medicine. * Call your doctor's office if you have any side effects. * Be sure all of your doctors know what medicine and herbs you take (including cold, flu, and herbal medicine). * Pain Medicine: If you do not get relief from your pain, please call your doctor for help. Take the following with you to your follow-up doctor appointments: * Weight Chart * Medication List * List of questions Do not drink excessive alcohol, beer or wine. Total Time Total Time Spent Total Time Spent (In Minutes): It required greater than 30 minutes to prepare this patient for discharge. Coding Level of Care Code 98108 INP/OBS DISCH >30 MIN Diagnoses Acute respiratory failure with hypoxia J96.01 Pneumonia involving right lung J18.9 Acute worsening of stage 3 chronic kidney disease N18.30 COPD exacerbation J44.1 Atrial fibrillation, permanent I48.21 Diabetes mellitus E11.9
== END 2024-09-18 13:24 | disposition home health service (06) | DRG 193 ==
LOC: SUATTDRO → ED 05:20 → SUATTDRO 07:01 → 4W 07:01